=== PATIENT | male | born 1935 | race Hispanic/Latino ===

== ENCOUNTER 2019-12-13 19:48 | Emergency (ER) | payer MEDICARE ==
[~2019-12-13] VITALS: Ht 172.7 cm; Wt 83.0 kg
[2019-12-13] MEDS ORDERED: TRAMADOL HCL 50 MG TAB ONE (20:56)
[2019-12-13] MEDS ORDERED: TRAMADOL HCL 50 MG TAB PO ONE (21:00)
--- NOTE | 2019-12-13 22:15 | Diagnostic Imaging Report ---
EXAMINATION: CHEST 2 VIEWS INDICATION: Cough. Blood tinged sputum this morning COMPARISON: None. Correlation CT chest 02/05/2019. FINDINGS: TUBES and LINES: None. LUNGS: Patchy airspace disease in the right upper lobe medially, and bilateral lower lobes, concerning for multifocal pneumonia. PLEURA: No pleural effusion or pneumothorax. HEART AND MEDIASTINUM: The cardiomediastinal silhouette is unremarkable. There are atherosclerotic calcifications within the aorta. BONES AND SOFT TISSUES: No acute osseous lesion. Soft tissues are unremarkable. UPPER ABDOMEN: No free air under the diaphragm. IMPRESSION: 1. Patchy airspace disease in the right upper lobe medially, and bilateral lower lobes, concerning for multifocal pneumonia in the proper clinical setting. Recommend follow-up chest PA and lateral views after treatment to document resolution. 2. Bilateral pulmonary nodules present on prior CT examination are not well evaluated with this exam. Signed by: Dr. Vega Weinberg M.D. on 12/13/2019 10:12 PM
--- NOTE | 2019-12-13 22:17 | Diagnostic Imaging Report ---
Lumbar Spine Radiographs: 3 views HISTORY: Back pain with into left leg. COMPARISON: None available. DISCUSSION: There are five non-rib bearing lumbar vertebral bodies, however, there is partial sacralization of L5, with a right L5-S1 pseudoarthrosis. The alignment of the spine is within normal limits. No displaced fracture or compression deformity is identified. 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 Laminectomy changes are present at L4-L5 and L5-S1. Degenerative changes of the SI joints. Cholecystectomy clips. 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 Signed by: Dr. Vega Weinberg M.D. on 12/13/2019 10:14 PM
[2019-12-14 00:17] LABS: BASOPHILS % 0.5 % (0.0-1.0); EOSINOPHILS # (AUTO) 0.4 (0.0-0.4); EOSINOPHILS % 4.9 % (0.0-6.0); HEMATOCRIT 40.6 % (38.2-49.6); HEMOGLOBIN 13.5 g/dL (14.0-18.0); LYMPHOCYTES # (AUTO) 2.5 (1.0-3.2); MEAN CORPUSCULAR HEMOGLOBIN 34.7 pg (28-32); MEAN CORPUSCULAR HGB CONC 33.3 g/dL (31-35); MEAN CORPUSCULAR VOLUME 104.4 fL (81-99); MONOCYTES # (AUTO) 0.7 (0.2-0.8); MONOCYTES % 8.7 % (4.4-11.3); NEUTROPHILS # (AUTO) 4.7 (2.1-6.9); NEUTROPHILS % 55.7 % (38.7-80.0); PLATELET COUNT 223 x10e3/uL (140-360); RED BLOOD COUNT 3.89 x10e6/uL (4.3-5.7)
[2019-12-14] MEDS ORDERED: IPRATROPIUM BROMIDE 0.02% 2.5 ML NEB ONE (00:23)
[2019-12-14] MEDS ORDERED: ALBUTEROL SULF 0.083% NEB SOLN 3 ML NEB ONE (00:24)
[2019-12-14] MEDS ORDERED: ALBUTEROL SULF 0.5% NEB SOLN 20 ML BTL ONE (00:24)
[2019-12-14 00:42] LABS: ALBUMIN 3.6 g/dL (3.5-5.0); ALBUMIN/GLOBULIN RATIO 0.9 (0.8-2.0); ANION GAP 12.7 mmol/L (8-16); CALCIUM 9.6 mg/dL (8.4-10.2); CREATININE, SERUM 1.23 mg/dL (0.72-1.25); POTASSIUM 3.7 mmol/L (3.5-5.1)
--- NOTE | 2019-12-14 01:44 | Diagnostic Imaging Report ---
EXAM: CT Chest WITHOUT contrast 12/13/2019 11:14 PM INDICATION: Pain. Abnormal chest x-ray. Nodules on chest x-ray. COMPARISON: 02/05/2019. TECHNIQUE: Chest was scanned utilizing a multidetector helical scanner from the lung apex through the level of the adrenal glands without administration of IV contrast. Absence of intravenous contrast decreases sensitivity for detection of lymphadenopathy and vascular pathology. Coronal and sagittal reformations were obtained. Routine protocol was performed. IV CONTRAST: None RADIATION DOSE: Total DLP: 524.54 mGy*cm Estimated effective dose: (DLP x 0.014 x size factor) mSv COMPLICATIONS: None FINDINGS: LINES/ TUBES: None. LUNGS AND AIRWAYS: Peripheral spiculated lesions scattered throughout the both lungs, some which are new, and some which are stable since the prior examination. There is bilateral lower lobe scarring with mild central bronchiectasis. There is mucous plugging with finger in glove appearance particularly in the right lower lobe. Some nodules are stable small for instance, 1.3 cm nodule in the left upper lobe medially on image 40, previously 1.2 cm on image 37. 1.1 cm nodule in the lingula on image 71, previously 1.1 cm on image 69. 1.2 cm nodule in the posterior right lower lobe on image 72 previously 1.1 cm on image 75. PLEURA: The pleural spaces are clear. HEART AND MEDIASTINUM: The thyroid gland is normal. No mediastinal, hilar or axillary lymphadenopathy. The heart is normal in size.. There is no pericardial effusion. There are mild atherosclerotic calcifications in the aorta and coronary arteries. UPPER ABDOMEN: Limited non-contrast views of the upper abdomen redemonstrate a large left parapelvic cyst versus chronic hydronephrosis, not completely evaluated. 1.9 cm simple appearing cyst in the anterior upper pole of the right kidney is stable. Calcifications of the visualized abdominal aorta. The adrenal glands are normal. Cholecystectomy clips. BONES: There are degenerative changes in the thoracic spine. SOFT TISSUES: Unremarkable. IMPRESSION: 1. Bilateral irregular pulmonary nodules most of which are stable and however, some are new and may represent acute infectious/inflammatory etiology superimposed on chronic changes, which in association with bilateral lower lobe bronchial mucous plugging, may reflect ABPA in the proper clinical setting. Recommend follow-up with career law clerk, new finding, further evaluation with high-resolution CT chest. 2. Large left parapelvic cyst versus chronic hydronephrosis only partially visualized. Signed by: Dr. Vega Weinberg M.D. on 12/14/2019 1:41 AM
[2019-12-14 02:24] VITALS: BP 146/72
== END 2019-12-14 02:37 | disposition home or self-care (01) ==
LOC: ER 19:48
DX: M54.42 Lumbago with sciatica, left side (principal); R05 Cough; R91.8 Other nonspecific abnormal finding of lung field; I10 Essential (primary) hypertension; G89.29 Other chronic pain; Z86.718 Personal history of other venous thrombosis and embolism
CPT/HCPCS: 36415; 71046; 71250; 72100; 80053; 85025; 87040; 87071; 87205; 99284

== ENCOUNTER 2020-05-20 11:56 | Emergency (ER) | payer MEDICARE ==
[~2020-05-20] VITALS: Ht 172.7 cm; Wt 83.0 kg
--- NOTE | 2020-05-20 13:30 | Diagnostic Imaging Report ---
EXAMINATION: CHEST SINGLE (PORTABLE) INDICATION: Cough COMPARISON: Chest radiograph 12/13/2019, chest CT 12/13/2019 FINDINGS: LINES/TUBES:None LUNGS:The lungs are well-inflated. No focal consolidation or pulmonary edema. Scattered areas of small nodularity correspond with pulmonary nodules and areas of mucus plugging seen on the prior CT of 12/13/2019. PLEURA:No pleural effusion or pneumothorax. MEDIASTINUM:The cardiomediastinal silhouette appears unchanged in size and shape. BONES/SOFT TISSUES:No acute osseous injury. ABDOMEN:No free air under the diaphragm. IMPRESSION: No focal pneumonia or pulmonary edema. Scattered nodules and mucus plugging better appreciated on prior CT of 12/13/2019. Signed by: Jackie Gutierrez MD on 05/20/2020 1:26 PM
--- NOTE | 2020-05-20 13:30 | Diagnostic Imaging Report ---
EXAMINATION: FOOT LEFT COMPLETE INDICATION: Left foot pain COMPARISON: None FINDINGS: AP, lateral and oblique images of the left foot demonstrate no acute fracture or dislocation. Alignment is anatomic. The soft tissues appear unremarkable. IMPRESSION: No acute osseous injury. Signed by: Jackie Gutierrez MD on 05/20/2020 1:27 PM
--- NOTE | 2020-05-20 13:52 | Emergency Department Note ---
History of Present Illnes History of Present Illness Chief Complaint: Extremity Trauma/Pain History of Present Illness This is a 85 year old male states he fell 1 week ago (SLIPPED ON COFFEE THAT HE SPILLED) and landed on left side of body c/o pain to left leg, left arm/shoulder, and head denies being on blood thinners, denies loc, denies dizziness, states his left foot is swollen. Also c/o mild cough with occas blood-tinged sputum Historian: Patient Arrival Mode: Car [employer] Grade Three Required: No Onset (how long ago): week(s) (1) Location: LEFT SIDE OF BODY Quality: PAIN Radiation: Reports non-radiation Severity: mild Onset quality: gradual Timing of current episode: constant Chronicity: new Context: Denies recent illness Relieving factors: none Exacerbating factors: none Associated symptoms: Reports denies other symptoms Treatments prior to arrival: none Past Medical/Family History Physician Review I have reviewed the patient's past medical and family history. Any updates have been documented here. Past Medical History Recent Fever: No Clinical Suspicion of Infectio: No New/Unexplained Change in Ment: No Past Medical History: Hypertension, DVT/PE, Chronic Back Pain Other Medical History: BPH Past Surgical History: Appendectomy, Back Surgery Social History Smoking Cessation: Never Smoker Counseling Performed: No Alcohol Use: None Any Illegal Drug Use: No Physically hurt or threatened: No Other Last Tetanus: OOD Any Pre-Existing Lines (PICC,: No Review of Systems Review of Systems Constitutional: Reports no symptoms EENTM: Reports no symptoms Cardiovascular: Reports no symptoms Respiratory: Reports no symptoms Gastrointestinal: Reports no symptoms Genitourinary: Reports no symptoms Musculoskeletal: Reports as per HPI Integumentary: Reports no symptoms Neurological: Reports no symptoms Psychological: Reports no symptoms Endocrine: Reports no symptoms Hematological/Lymphatic: Reports no symptoms Physical Exam Related Data Allergies: Coded Allergies: No Known Allergies (Unverified , 02/05/19) Triage Vital Signs Vital Signs Date Time Temp Pulse Resp B/P (MAP) Pulse Ox O2 Delivery O2 Flow Rate FiO2 05/20/20 12:19 98.5 96 18 153/85 100 Room Air Vital signs reviewed: Yes Physical Exam CONSTITUTIONAL Constitutional: Present well-developed, Present well-nourished HENT HENT: Present normocephalic, Present atraumatic, Present oropharynx clear/moist, Present nose normal HENT L/R: Present left ext ear normal, Present right ext ear normal EYES Eyes: Reports PERRL, Reports conjunctivae normal NECK Neck: Present ROM normal PULMONARY Pulmonary: Present effort normal, Present breath sounds normal CARDIOVASCULAR Cardiovascular: Present regular rhythm, Present heart sounds normal, Present capillary refill normal, Present normal rate GASTROINTESTINAL Abdominal: Present soft, Present nontender, Present bowel sounds normal GENITOURINARY Genitourinary: Present exam deferred SKIN Skin: Present warm, Present dry MUSCULOSKELETAL Musculoskeletal: Present ROM normal, Present other (MILD TENDERNESS LEFT POSTERIOR HEEL/CALCANEUS) NEUROLOGICAL Neurological: Present alert, Present oriented x 3, Present no gross motor or sensory deficits PSYCHOLOGICAL Psychological: Present mood/affect normal, Present judgement normal Results Imaging Imaging results reviewed: Yes Assessment & Plan Medical Decision Making MDM CHECK FOOT XRAY, CXR Reassessment Reassessment DC HOME, TYLENOL FOR PAIN, ZPACK, F/U PCP Assessment & Plan Final Impression: (1) Fall (2) Contusion (3) Bronchitis Depart Disposition: HOME, SELF-CARE Last Vital Signs Date Time Temp Pulse Resp B/P (MAP) Pulse Ox O2 Delivery O2 Flow Rate FiO2 05/20/20 12:19 98.5 96 18 153/85 100 Room Air OLMAN PAUL MD May 20, 2020 13:52
== END 2020-05-20 14:00 | disposition home or self-care (01) ==
LOC: ER 12:16
DX: S90.32XA Contusion of left foot, initial encounter (principal); M25.512 Pain in left shoulder; J40 Bronchitis, not specified as acute or chronic; W01.0XXA Fall on same level from slipping, tripping and stumbling without subsequent striking against object, initial encounter; Y93.01 Activity, walking, marching and hiking; Y92.008 Other place in unspecified non-institutional (private) residence as the place of occurrence of the external cause; I10 Essential (primary) hypertension; M54.9 Dorsalgia, unspecified; G89.29 Other chronic pain; Z86.718 Personal history of other venous thrombosis and embolism
CPT/HCPCS: 71045; 93005; 99283

== ENCOUNTER 2020-07-03 19:35 | Inpatient (IN) | payer MEDICARE ==
[~2020-07-03] VITALS: Ht 172.7 cm; Wt 83.0 kg
[2020-07-03 20:20] LABS: BASOPHILS % 0.4 % (0.0-1.0); EOSINOPHILS # (AUTO) 0.4 (0.0-0.4); EOSINOPHILS % 5.6 % (0.0-6.0); HEMATOCRIT 33.3 % (38.2-49.6); HEMOGLOBIN 11.1 g/dL (14.0-18.0); LYMPHOCYTES # (AUTO) 1.6 (1.0-3.2); LYMPHOCYTES % 22.7 % (18.0-39.1); MEAN CORPUSCULAR HEMOGLOBIN 33.9 pg (28-32); MEAN CORPUSCULAR HGB CONC 33.3 g/dL (31-35); MEAN CORPUSCULAR VOLUME 101.8 fL (81-99); MONOCYTES # (AUTO) 0.7 (0.2-0.8); MONOCYTES % 10.2 % (4.4-11.3); NEUTROPHILS # (AUTO) 4.3 (2.1-6.9); NEUTROPHILS % 60.8 % (38.7-80.0); PLATELET COUNT 206 x10e3/uL (140-360); RED BLOOD COUNT 3.27 x10e6/uL (4.3-5.7); RED CELL DISTRIBUTION WIDTH 13.8 % (11.7-14.4)
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
[2020-07-03 20:37] LABS: ALBUMIN 2.9 g/dL (3.5-5.0); ALBUMIN/GLOBULIN RATIO 0.9 (0.8-2.0); ANION GAP 17.9 mmol/L (8-16); CALCIUM 8.7 mg/dL (8.4-10.2); CREATININE, SERUM 9.28 mg/dL (0.72-1.25); POTASSIUM 5.9 mmol/L (3.5-5.1)
[2020-07-03] MEDS ORDERED: SODIUM BICARBONATE 8.4% INJ 50 ML SYR IV STA (20:52)
[2020-07-03] MEDS ORDERED: DEXTROSE 50% SYRINGE 50 ML IV STA (20:52)
[2020-07-03] MEDS ORDERED: SOD POLYSTYRENE SULFONATE SUSP 15 GM/60 ML BTL PO ONE (21:00)
[2020-07-03] MEDS ORDERED: CALCIUM GLUCONATE 10% INJ 13.95 MEQ in SODIUM CHLORIDE 0.9% 100 ML 100 ML IV ONE (21:00)
[2020-07-03] MEDS ORDERED: INSULIN REGULAR, HUMAN 100 UNIT/1 ML 3ML VIAL IV ONE (21:00)
[2020-07-03] MEDS ORDERED: CALCIUM GLUCONATE 10% INJ 0.465 MEQ/ML VIAL ONE (21:29)
[2020-07-03 21:31] LABS: BILIRUBIN,URINE NEGATIVE (NEGATIVE); CLARITY,URINE CLEAR (CLEAR); COLOR,URINE YELLOW (YELLOW); KETONES,URINE NEGATIVE (NEGATIVE); LEUKOCYTE ESTERASE ,URINE NEGATIVE (NEGATIVE); NITRITE,URINE NEGATIVE (NEGATIVE); PROTEIN,URINE DIPSTICK NEGATIVE (NEGATIVE); URINE UROBILINOGEN 0.2 mg/dL (0.2 - 1)
--- NOTE | 2020-07-03 21:41 | Diagnostic Imaging Report ---
EXAMINATION: Head CT without contrast. HISTORY:Status post fall. COMPARISON:None. TECHNIQUE: Multidetector axial images were obtained from the foramen magnum to the vertex without contrast. The images were reconstructed using brain and bone algorithms. Thin section brain images were reformatted into coronal and sagittal planes. Dose modulation, iterative reconstruction, and/or weight based adjustment of the mA/kV was utilized to reduce the radiation dose to as low as reasonably achievable. Intravenous contrast: None IMAGE QUALITY: Suboptimal evaluation particularly of skull base and posterior fossa structures due to streak artifacts. FINDINGS: Skull/scalp: No lytic or blastic. lesions. No surgical changes. Parenchyma: Nonspecific few, scattered supratentorial white matter hypodensity are likely related to small vessel ischemic changes. No acute hemorrhage, mass or acute major vascular territorial infarct. Arteries: No density suggestive of thrombosis. Dural sinuses: No abnormal density suggestive of thrombosis. Ventricles: Compensated dilatation due to volume loss. No hydrocephalus. Extra-axial spaces: No abnormal density. Brain volume: Normal for age. Craniocervical junction: No mass, Chiari malformation, or basilar invagination. Sella: No mass. Paranasal/mastoid sinuses: Mild mucosal thickening in left ethmoid and right sphenoid sinus. IMPRESSION: No acute intracranial abnormality. Minimal supratentorial white matter microvascular ischemic changes. Signed by: Dr. Radha Enciso M.D. on 07/03/2020 9:38 PM
[2020-07-03 21:42] LABS: BACTERIA,URINE FEW /HPF; RBC,URINE 21-50 /HPF (0-5)
--- NOTE | 2020-07-03 21:48 | Diagnostic Imaging Report ---
History: Status post fall. Comparison studies: None Technique: Axial images were obtained through the cervical region.. Coronal and sagittal images reconstructed from the axial data. Dose modulation, iterative reconstruction, and/or weight based adjustment of the mA/kV was utilized to reduce the radiation dose to as low as reasonably achievable. Intravenous contrast: None Findings: Fractures: None. Soft tissue injuries: None. Atlantoaxial articulation: Intact. Alignment: Loss of normal cervical lordosis is either positional or due to muscle spasm. No scoliosis. 1.5 mm grade 1 anterolisthesis at C5-C6. Cervicomedullary junction: No abnormalities. The foramen magnum is patent. Soft tissues: No abnormalities. Vertebrae: No fractures, infection or neoplasm. Degenerative changes: Advanced degenerative changes in the anterior atlantodental joint. C2-C3: Mild left foraminal stenosis due to facet arthrosis. C3-C4: Moderate right and mild left foraminal stenosis due to facet and uncovertebral arthrosis. C4-C5: Severe bilateral foraminal stenosis due to facet and uncovertebral arthrosis. C5-C6: Moderate bilateral foraminal stenosis due to facet and uncovertebral arthrosis. C6-C7: Moderate degenerative disc disease. Posterior disc osteophyte complex without significant canal stenosis. Mild right and moderate left foraminal stenosis due to facet and uncovertebral arthrosis. Incidental finding: Nonspecific multiple subcentimeter nodular airspace opacities in bilateral lung atelectasis. IMPRESSION: 1. No acute cervical spine fracture or dislocation. Loss of normal cervical lordosis is either positional or due to muscle spasm. 2. Ligament, spinal cord and or vascular abnormalities cannot be excluded on the basis of this examination. 3. Multilevel cervical spondylosis as detailed above. Signed by: Dr. Radha Enciso M.D. on 07/03/2020 9:45 PM
--- NOTE | 2020-07-03 22:08 | Diagnostic Imaging Report ---
EXAMINATION: CHEST SINGLE (PORTABLE) INDICATION: s/p fall yesterday COMPARISON: Radiograph dated 05/20/2020. FINDINGS: TUBES and LINES: None. LUNGS: Normal lung volumes. No consolidations. 2.2 cm nodule projects over the mid left lung. PLEURA: No pleural effusion or pneumothorax. HEART AND MEDIASTINUM: The cardiomediastinal silhouette is unremarkable. BONES AND SOFT TISSUES: No acute osseous displaced rib fractures. Soft tissues are unremarkable. UPPER ABDOMEN: No free air under the diaphragm. IMPRESSION: 1. No acute thoracic radiographic abnormality. 2. Unchanged 2.2 cm pulmonary nodule. Additional small nodules are not radiographically apparent. Please see CT report from today. Signed by: Jose Madsen MD on 07/03/2020 10:04 PM
--- OUTSIDE RECORDS SUMMARY | 2020-07-03 22:12 | XMS REPORT | Clinical Summary ---
Author Author [facility] Organization [facility] Address Unknown Phone Unavailable Care Team Providers [facility] Director Name Role Phone Richard Isaac MD PCP Allergies No Known Allergies Medications End Date Status Medication Sig Dispensed Refills Start Date Active kxvivopymiia-pfjngfbm-mbe Take 1 tablet 90 tablet 3 ein tablet by mouth 7 daily. Active clotrimazole-betamethason Apply 15 g 3 e (LOTRISONE) 1-0.05 % topically 7 creamIndications: Tinea twice daily corporis to rash x 7-10 days Active fluticasone (FLONASE) 50 2 sprays (100 15.8 mL 0 mcg/actuation nasal mcg total) by 7 sprayIndications: Chronic Each Nare seasonal allergic route daily. rhinitis due to other allergen Active tamsulosin (FLOMAX) 0.4 Take 1 90 capsule 1 mg capsule,extended capsule (0.4 7 release 24hr mg total) by mouth nightly. For prostate Active nabumetone (RELAFEN) 500 Take 1 tablet 60 tablet 1 MG tabletIndications: (500 mg 7 Chronic left shoulder total) by pain mouth 2 (two) times a day as needed for moderate pain. Active promethazine-DM TAKE 1 240 mL 0 (PROMETHAZINE-DM) 6.25-15 TEASPOONFUL 7 mg/5 mL syrup BY MOUTH EVERY 6 HOURS NEEDED FOR COUGH Active Problems Problem Noted Date Elevated PSA, greater than or equal to 20 ng/ml 10/06 Vitamin D deficiency 10/15/2017 Vitamin B12 deficiency 10/15/2017 Benign prostatic hyperplasia with incomplete bladder emptying 10/12/2017 Tinea corporis 10/12/2017 Impaired hearing 10/12/2017 Allergic rhinitis due to allergen 10/12/2017 Abnormal blood chemistry 10/12/2017 Rash 10/12/2017 BMI 28.0-28.9,adult 10/12/2017 Chronic left shoulder pain 10/12/2017 Social History Date Tobacco Use Types Packs/Day Years Used Never Smoker Smokeless Tobacco: Never Used Drinks/Week oz/Week Comments Alcohol Use No Sex Assigned at Date Recorded Not on file Industry Job Start Date Occupation Not on file Not on file Not on file Travel End Travel History Travel Start No recent travel history available. Last Filed Vital Signs Not on file Plan of Treatment Health Maintenance Due Date Last Done Comments SHINGLES VACCINES (#1) 1983 65+ PNEUMOCOCCAL VACCINE 1998 (1 of 2 - PCV13) INFLUENZA VACCINE 08/06/2020 Results Not on fileafter 07/03/2019 Insurance Type Payer Benefit Subscriber ID Effective Phone Address Plan / Dates Group HMO [employer] xxxxxxxxx 2017- MARITA Present Advance Directives For more information, please contact: [phone] Patient Trouble Clerk Explanation Type Date Recorded Advance Directives, Living Will and Medical Power of Options Trader
--- OUTSIDE RECORDS SUMMARY | 2020-07-03 22:12 | XMS REPORT | Continuity of Care Document ---
Author Author [facility] t Organization [facility] Address [address] [place] [address] Phone Unavailable Care Team Providers Care Superintendent Division Name Role Phone NONSTAFF PCP Unavailable Fina ESPINOZA Attphys Unavailable Yusuf PAUL Attphys Unavailable Nellie FREED Attphys Unavailable Payers Payer Name Policy Type Policy Number Effective Date Expiration Date [facility] [id number] 2019 00:00:00 [facility] [employer] Medicare Complete [id number] 2018 00:00:00 [facility] Problems Condition Name Condition Details Condition Category Status Onset Date Resolution Date Last Treatment Date Treating Clinician Comments Source Elevated PSA, greater than or equal to 20 ng/ml Elevat ed PSA, greater than or equal to 20 ng/ml Disease Active 2017-10-15 00:00:00 Eyad Calhoun Vitamin D deficiency Vitamin D deficiency Disease Active 00:00:00 Eyad Calhoun Vitamin B12 deficiency Vitamin B12 deficiency Disease Active 2017-10-15 00:00:[address] Benign prostatic hyperplasia with incomplete bladder e mptying Benign prostatic hyperplasia with incomplete bladder emptying Disease Active 201 05-17-07 00:00:00 [facility] Tinea corporis Tinea corporis Disease Active 2017-10-12 00:00:00 Eyad Calhoun Impaired hearing Impaired hearing Disease Active 2017-10-12 00:00:00 Eyad Calhoun Allergic rhinitis due to allergen Allergic rhinitis due to aller gen Disease Active 2017-10-12 00:00:00 Jenniffer clifford Faith Abnormal blood chemistry Abnormal blood chemistry Disease Acti ve 2017-10-12 00:00:[address] Rash Rash Disease Active 2017-10-12 00:00:00 Eyad Calhoun BMI 28.0-28.9,adult BMI 28.0-28.9,adult Disease Active 2017-10-12 00:00 :00 Eyad Calhoun Chronic left shoulder pain Chronic left shoulder pain Disease Active 2017-10-12 00:00:[address] Fall Problem Active [facility] Contusion Problem Active [facility] Bronchitis Problem Active [facility] Allergies, Adverse Reactions, Alerts Allergy Name Allergy Type Status Severity Reaction(s) Onset Date Inacti ve Date Treating Clinician Comments Source No Known Allergies DA Active U 2012-04-10 00:00:00 [facility] Social History Social Habit Start Date Stop Date Quantity Comments Source Sex Assigned At [facility] Faith Alcohol intake 2017-10-12 00:00:00 2017-10-12 00:00:00 Current non-drinker of alcohol (finding) Eyad Calhoun Smoking Status Start Date Stop Date Source Never smoker Eyad terrazas Medications Ordered Medication Name Filled Medication Name Start Date Stop Da te Current Medication? Ordering Clinician Indication Dosage Frequency Signature (SIG) Comments Components Source promethazine-DM (PROMETHAZINE-DM) 6.25-15 mg/5 mL syrup 2017-10-27 00:00:00 Yes TAKE 1 TEASPOONFUL BY MOUTH EVERY 6 HOUR S NEEDED FOR COUGH Eyad Calhoun naxzrqtmaocs-ebdzdoyp-ihqluj tablet 2017-10-12 00:00:00 Yes 1{tbl} QD Take 1 tablet by mouth daily. Eyad davis clotrimazole-betamethasone (LOTRISONE) 1-0.05 % cream 2017-10-12 00:00:00 Yes Tinea corporis Apply topically twice daily to ra sh x 7-10 days Eyad Calhoun fluticasone (FLONASE) 50 mcg/actuation nasal spray 2017-10 00:00:00 Yes Chronic seasonal allergic rhinitis due to other allergen 100ug QD 2 sprays (100 mcg total) by Each Nare route daily. Val Calhoun tamsulosin (FLOMAX) 0.4 mg capsule,extended release 24hr 2017-10-12 00:00:00 Yes .4mg QD Take 1 capsule (0.4 mg total) by mouth nightly. For prostate Eyad Calhoun nabumetone (RELAFEN) 500 MG tablet 2017-10-12 00:00:00 Yes Chronic left shoulder pain 500mg Q.5D Take 1 tablet (500 m g total) by mouth 2 (two) times a day as needed for moderate pain. Eyad Calhoun Vital Signs Vital Name Observation Time Observation Value Comments Source Weight 2020-05-20 12:19:00 183 [lb_av] [facility] BMI (Body Mass Index) 2020-05-20 12:19:00 27.8 kg/m2 [facility] Body Temperature 2019-12-14 01:24:00 98.1 [degF] [facility] Procedures Procedure Date / Time Performed Performing Clinician [facility] e X-ray of chest, two views 2019-12-13 00:00:00 LYNDSAY ESPINOZA [facility] Computed tomography of chest without contrast 2019-12-13 00: 00:00 LAURYN ESPINOZA [facility] Plan of Care Planned Activity Planned Date Details Comments Source Future Scheduled Test 2020-08-06 00:00:00 INFLUENZA VACCINE [code = INFLUENZA VACCINE] [facility] Future Scheduled Test 1998 00:00:00 65+ PNEUMOCOCCAL V ACCINE (1 of 2 - PCV13) [code = 65+ PNEUMOCOCCAL VACCINE (1 of 2 - PCV13)] [facility] Future Scheduled Test 1983 00:00:00 SHINGLES VACCINES (#1) [code = SHINGLES VACCINES (#1)] Eyad Calhoun Instructions Fall Prevention [facility] Encounters Start Date/Time End Date[facility] En[facility] ID Source 2020-05-20 12:16:00 2020-05-20 14:00:00 Departed Emergency Room 1 OLMAN PAUL [facility] [id number] [facility]ly [facility] 2019-12-13 18:48:00 2019-12-14 01:37:00 Departed Emergency Room 1 LAURYN ESPINOZA [facility] [id number] I [facility] 2019-02-05 18:05:00 2019-02-05 22:33:00 Departed Emergency Room [address] [facility] [id number] [facility] Results Test Description Test Time Test Comments Results Result Comments Source CHEST SINGLE (PORTABLE) 2020-07-03 21:59:00 [facility] [address] [place] [address] Patient Name: ONEIL ACHARYA MR #: [id number] : 1935 Age/Sex: 85/M Req #: [id number] Adm Physician: Ordered by: LAURYN ESPINOZA MD Report #: [id number] Location: ER Room/Bed: Procedure: [id number] DX/CHEST SINGLE (PORTABLE) Exam Date: 07/03/20 Exam Time: 2100 REPORT STATUS: Signed EXAMINATION: CHEST SINGLE (PORTABLE) INDICATION: s/p fall yesterday COMPARISON: Radiograph dated 05/20/2020. FINDINGS: TUBES and LINES: None. LUNGS: Normal lung volumes. No consolidations. 2.2 cm nodule projects over the mid left lung. PLEURA: No pleural effusion or pneumothorax. HEART AND MEDIASTINUM: The cardiomediastinal silhouette is unremarkable. BONES AND SOFT TISSUES: No acute osseous displaced rib fractures. Soft tissues are unremarkable. UPPER ABDOMEN: No free air under the diaphragm. IMPRESSION: 1. No acute thoracic radiographic abnormality. 2. Unc hanged 2.2 cm pulmonary nodule. Additional small nodules are not radiographically apparent. Please see CT report from today. Signed by: Chanell Madsen MD on 07/03/2020 10:04 PM Dictated By: CHANELL MADSEN MD 03 Transcribed By: RHEA on 07/03/202203 COPY TO: LAURYN ESPINOZA MD CT CERVICAL SPINE WO 2020-07-03 21:38:00 [place] [address] Patient Name: ONEIL ACHARYA MR #: [id number] : 1935 Age/Sex: 85/M Req #: [id number] Adm Physician: Ordered by: LAURYN ESPINOZA MD Report #: [id number] Location: ER Room/Bed: Procedure: [id number] CT/CT CERVICAL SPINE WO Exam Date: 07/03/20 Exam Time: 2099 REPORT STATUS: Signed History: Status post fall. Comparison studies: None Technique: Axial images were obtained through the cervical region.. Coronal and sagittal images reconstructed from the axial data. Dose modulation, iterative reconstruction, and/or weight based adjustment of the mA/kV was utilized to reduce the radiation dose to as low as reasonably achievable. Intravenous contrast: None Findings: Fractures: None. Soft tissue injuries: None. Atlantoaxial articulation: Intact. Alignment: Loss of normal cervical lordosis is either positional or due to muscle spasm. No scoliosis. 1.5 mm grade 1 anterolisthesis at C5-C6. Cervicomedullary junction: No abnormalities. The foramen magnum is patent. Soft tissues: No abnormalities. Vertebrae: No fractures, infection or neoplasm. Degenerative changes: Advanced degenerative changes in the anterior atlantodental joint. C2-C3: Mild left foraminal stenosis due to facet arthrosis. C3-C4: Moderate right and mild left foraminal stenosis due to facet and uncovertebral arthrosis. C4-C5: Severe bilateral foraminal stenosis due to facet and uncovertebral arthrosis. C5-C6: Moderate bilateral foraminal stenosis due to facet and uncovertebral arthrosis. C6-C7: Moderate degenerative disc disease. Posterior disc osteophyte complex without significant canal stenosis. Mild right and moderate left foraminal stenosis due to facet and uncovertebral arthrosis. Incidental finding: Nonspecific multiple subcentimeter nodular airspace opacities in bilateral lung atelectasis. IMPRESSION: 1. No acute cervical spine fracture or dislocation. Loss of normal cervical lordosis is either positional or due to muscle spasm. 2. Ligament, spinal cord and or vascular abnormalities cannot be excluded on the basis of this examination. 3. Multilevel cervical spondylosis as detailed above. Signed by: Dr. Radha Enciso M.D. on 07/03/2020 9:45 PM Dictated By: RADHA ENCISO MD 44 Transcribed By: RHEA on 07/03/202144 COPY TO: LAURYN ESPINOZA MD CT BRAIN WO 2020-07-03 21:34:00 [place] [address] Patient Name: ONEIL ACHARYA MR #: [id number] : 1935 Age/Sex: 85/M Req #: [id number] Adm Physician: Ordered by: LAURYN ESPINOZA MD Report #: [id number] Location: ER Room/Bed: Procedure: [id number] CT/CT BRAIN WO Exam Date: 07/03/20 Exam Time: 2100 REPORT STATUS: Signed EXAMINATION: Head CT without contrast. HISTORY:Status post fall. COMPARISON:None. TECHNIQUE: Multidetector axial images were obtained from the foramen magnum to the vertex without contrast. The images were reconstructed using brain and bone algorithms. Thin section brain images were reformatted into coronal and sagittal planes. Dose modulation, iterative reconstruction, and/or weight based adjustment of the mA/kV was utilized to reduce the radiation dose to as low as reasonably achievable. Intravenous contrast: None IMAGE QUALITY: Suboptimal evaluation particularly of skull base and posterior fossa structures due to st reak artifacts. FINDINGS: Skull/scalp: No lytic or blastic. lesions. No surgical changes. Parenchyma: Nonspecific few, scattered supratentorial white matter hypodensity are likely related to small vessel ischemic changes. No acute hemorrhage, mass or acute major vascular territorial infarct. Arteries: No density suggestive of thrombosis. Dural sinuses: No abnormal density suggestive of thrombosis. Ventricles: Compensated dilatation due to volume loss. No hydrocephalus. Extra-axial spaces: No abnormal density. Brain volume: Normal for age. Craniocervical junction: No mass, Chiari malformation, or basilar invagination. Sella: No mass. Paranasal/mastoid sinuses: Mild mucosal thickening in left ethmoid and right sphenoid sinus. IMPRESSION: No acute intracranial abnormality. Minimal supratentorial white matter microvascular ischemic changes. Signed by: Dr. Radha Enciso M.D. on 07/03/2020 9:38 PM Dictated By: RADHA ENCISO MD 37 Transcribed By: RHEA on 07/03/202137 COPY TO: LAURYN ESPINOZA MD FOOT LEFT COMPLETE 2020-05-20 13:26:00 [place] [address] Patient Name: ONEIL ACHARYA MR #: [id number] : 1935 Age/Sex: 85/M Req #: [id number] Adm Physician: Ordered by: OLMAN PAUL MD Report #: [id number] Location: ER Room/Bed: Procedure: DX/FOOT LEFT COMPLETE Exam Date: 05/20/20 Exam Time: 1255 REPORT STATUS: Signed EXAMINATION: FOOT LEFT COMPLETE INDICATION: Left foot pain COMPARISON: None FINDINGS: AP, lateral and oblique images of the left foot demonstrate no acute fracture or dislocation. Alignment is anatomic. The soft tissues appear unremarkable. IMPRESSION: No acute osseous injury. Signed by: Maicol Brown MD on 05/20/2020 1:27 PM Dictated By: MAICOL BROWN MD 26 Transcribed By: RHEA on 05/20/201326 COPY TO: OLMAN PAUL MD CHEST SINGLE (PORTABLE) 2020-05-20 13:23:00 [place] [address] Patient Name: ONEIL ACHARYA MR #: [id number] : 1935 Age/Sex: 85/M Req #: [id number] Adm Physician: Ordered by: OLMAN PAUL MD Report #: [id number] Location: ER Room/Bed: Procedure: [id number] DX/CHEST SINGLE (PORTABLE) Exam Date: 05/20/20 Exam Time: 1255 REPORT STATUS: Signed EXAMINATION: CHEST SINGLE (PORTABLE) INDICATION: Cough COMPARISON: Chest radiograph 12/13/2019, chest CT 12/13/2019 FINDINGS: LINES/TUBES:None LUNGS:The lungs are well-inflated. No focal consolidation or pulmonary edema. Scattered areas of small nodularity correspond with pulmonary nodules and areas of mucus plugging seen on the prior CT of 12/13/2019. PLEURA:No pleural effusion or pneumothorax. MEDIASTINUM:The cardiomediastinal silhouette appears unchanged in size and shape. BONES/SOFT TISSUES:No acute osseous injury. ABDOMEN:No free air under the diaphragm. IMPRESSION: No focal pneumonia or pulmonary edema. Scattered nodules and mucus plugging better appreciated on prior CT of 12/13/2019. Signed by: Maicol Brown MD on 05/20/2020 1:26 PM Dictated By: MAICOL BROWN MD 1326 Transcribed By: RHEA on 05/20/20 1326 COPY TO: OLMAN PAUL MD CT CHEST WO 2019-12-14 01:26:00 [place] [address] Patient Name: ONEIL ACHARYA MR #: [id number] : 1935 Age/Sex: 84/M Req #: [id number] Adm Physician: Ordered by: LAURYN ESPINOZA MD Report #: [id number] Location: ER Room/Bed: Procedure: [id number] CT/CT CHEST WO Exam Date: 12/13/19 Exam Time: 2342 REPORT STATUS: Signed EXAM: CT Chest WITHOUT contrast 12/13/2019 11:14 PM INDICATION: Pain. Abnormal chest x-ray. Nodules on chest x-ray. COMPARISON: 02/05/2019. TECHNIQUE: Chest was scanned utilizing a multidetector helical scanner from the lung apex through the level of the adrenal glands without administration of IV contrast. Absence of intravenous contrast decreases sensitivity for detection of lymphadenopathy and vascular pathology. Coronal and sagittal reformations were obtained. Routine protocol was performed. IV CONTRAST: None RADIATION DOSE: Total DLP: 524.54 mGy*cm Estimated effective dose: (DLP x 0.014 x size factor) mSv COMPLICATIONS: None FINDINGS: LINES/ TUBES: None. LUNGS AND AIRWAYS: Peripheral spiculated lesions scattered throughout the both lungs, some which are new, and some which are stable since the prior examination. There is bilateral lower lobe scarring with mild central bronchiectasis. There is mucous plugging with finger in glove appearance particularly in the right lower lobe. Some nodules are stable small for instance, 1.3 cm nodule in the left upper lobe medially on image 40, previously 1.2 cm on image 37. 1.1 cm nodule in the lingula on image 71, previously 1.1 cm on image 69. 1.2 cm nodule in the posterior right lower lobe on image 72 previously 1.1 cm on image 75. PLEURA: The pleural spaces are clear. HEART AND MEDIASTINUM: The thyroid gland is normal. No mediastinal, hilar or axillary lymphadenopathy. The heart is normal in size.. There is no pericardial effusion. There are mild atherosclerotic calcifications in the aorta and coronary arteries. UPPER ABDOMEN: Limited non-contrast views of the upper abdomen redemonstrate a large left parapelvic cyst versus chronic hydronephrosis, not completely evaluated. 1.9 cm simple appearing cyst in the anterior upper pole of the right kidney is stable. Calcifications of the visualized abdominal aorta. The adrenal glands are normal. Cholecystectomy clips. BONES: There are degenerative changes in the thoracic spine. SOFT TISSUES: Unremarkable. IMPRESSION: 1. Bilateral irregular pulmonary nodules most of which are stable and however, some are new and may represent acute infectious/inflammatory etiology superimposed on chronic changes, which in association with bilateral lower lobe bronchial mucous plugging, may reflect ABPA in the proper clinical setting. Recommend follow-up with surface grinder, new finding, further evaluation with high-resolution CT chest. 2. Large left parapelvic cyst versus chronic hydronephrosis only partially visualized. Signed by: Dr. Vega Butler M.D. on 12/14/2019 1:41 AM Dictated By: ANIL BUTLER MD, MD 0 Transcribed By: RHEA on 12/14/19140 COPY TO: LAURYN ESPINOZA MD Sodium Level 2019-12-14 00:50:00 Test Item Sodium Level (test code = 2951-2) 138 136-145 [facility] Khumr3886-11-46 00:50:00* Test Item Value Reference Range Interpretation Comments Potassium Level (test code = 2823-3) 3.7 3.5-5.1 [facility] HospitalChloride Ogpfj4758-20-73 00:50:00* Test Item Value Reference Range Interpretation Comments Chloride Level (test code = 2075-0) 106 98-107 [facility] HospitalCarbon Dioxide Ggvqw9407-48-19 00:50:00* Test Item Value Reference Range Interpretation Comments Carbon Dioxide Level (test code = 2028-9) 23 22-29 [facility] HospitalAnion Amv2075-58-81 00:50:00* Test Item Value Reference Range Interpretation Comments Anion Gap (test code = 24463-6) 12.7 8-16 [facility] HospitalBlood Urea Vhcqwtdy2639-91-03 00:50:00* Test Item Value Reference Range Interpretation Comments Blood Urea Nitrogen (test code = 3094-0) 21 7-26 [facility] HospitalCreatinine2020-02-08 00:50:00* Test Item Value Reference Range Interpretation Comments Creatinine (test code = 2160-0) 1.23 0.72-1.25 [facility] HospitalBUN/Creatinine Kpqrn9020-31-92 00:50:00* Test Item Value Reference Range Interpretation Comments BUN/Creatinine Ratio (test code = 3097-3) 17 6-25 [facility] HospitalEstimat Glomerular Filtration Rate 2019-12-14 00:50:00* Test Item Value Reference Range Interpretation Comments Estimat Glomerular Filtration Rate (test code = 267067596) 56 >60 L Ranges were taken from the National Kidney Disease Education Program and the [facility]ney Foundation literature.Reference ranges:60 or greater: Jmfekh11-43 ( for 3 consecutive months): Chronic kidney disease 15 or less: Kidney failureHarris Health System Ben Taub HospitalGlucose Nyjrk2083-05-47 00:50:00* Test Item Value Reference Range Interpretation Comments Glucose Level (test code = CKR9191) 94 74-118 [facility] HospitalCalcium Tmcos4843-42-96 00:50:00* Test Item Value Reference Range Interpretation Comments Calcium Level (test code = 01445-5) 9.6 8.4-10.2 [facility] HospitalTotal Eykgfxklp5816-69-20 00:50:00* Test Item Value Reference Range Interpretation Comments Total Bilirubin (test code = 1975-2) 0.3 0.2-1.2 [facility] HospitalAspartate Amino Transf (AST/SGOT) 2019-12-14 00:50:00* Test Item Value Reference Range Interpretation Comments Aspartate Amino Transf (AST/SGOT) (test code = Aspartate Amino Transf (AST/SGOT)) 21 5-34 [facility] HospitalAlanine Aminotransferase (ALT/SGPT) 2019-12-14 00:50:00* Test Item Value Reference Range Interpretation Comments Alanine Aminotransferase (ALT/SGPT) (test code = 1742-6) 7 0-55 [facility] HospitalTotal Mitexcy1451-01-73 00:50:00* Test Item Value Reference Range Interpretation Comments Total Protein (test code = 2885-2) 7.7 6.5-8.1 [facility] HospitalAlbumin2020-02-08 00:50:00* Test Item Value Reference Range Interpretation Comments Albumin (test code = 1751-7) 3.6 3.5-5.0 [facility] HospitalGlobulin2020-02-08 00:50:00* Test Item Value Reference Range Interpretation Comments Globulin (test code = 48350-6) 4.1 2.3-3.5 H [facility] HospitalAlbumin/Globulin Wffdf0719-11-97 00:50:00 * Test Item Value Reference Range Interpretation Comments Albumin/Globulin Ratio (test code = 1759-0) 0.9 0.8-2.0 [facility] HospitalAlkaline Gtwbxwyfdwk2420-99-84 00:50:00* Test Item Value Reference Range Interpretation Comments Alkaline Phosphatase (test code = 6768-6) 395 40-150 H [facility] HospitalWhite Blood Tjtnl8605-02-11 00:19:00* Test Item Value Reference Range Interpretation Comments White Blood Count (test code = 6690-2) 8.42 4.8-10.8 [facility] HospitalRed Blood Pjkod7570-26-53 00:19:00* Test Item Value Reference Range Interpretation Comments Red Blood Count (test code = 789-8) 3.89 4.3-5.7 L [facility] HospitalHemoglobin2020-02-08 00:19:00* Test Item Value Reference Range Interpretation Comments Hemoglobin (test code = 45551-7) 13.5 14.0-18.0 L [facility] HospitalHematocrit2020-02-08 00:19:00* Test Item Value Reference Range Interpretation Comments Hematocrit (test code = 4544-3) 40.6 38.2-49.6 [facility] HospitalMean Corpuscular Tgvvrk7488-61-97 00:19:00* Test Item Value Reference Range Interpretation Comments Mean Corpuscular Volume (test code = 787-2) 104.4 81-99 H [facility] HospitalMean Corpuscular Ymdeagncnl2982-57-91 00:19:00* Test Item Value Reference Range Interpretation Comments Mean Corpuscular Hemoglobin (test code = 785-6) 34.7 28-32 H [facility] HospitalMean Corpuscular Hemoglobin Concent 2019-12-14 00:19:00* Test Item Value Reference Range Interpretation Comments Mean Corpuscular Hemoglobin Concent (test code = 786-4) 33.3 31-35 [facility] HospitalRed Cell Distribution Kjqzs9943-67-50 00:19:00* Test Item Value Reference Range Interpretation Comments Red Cell Distribution Width (test code = 08454-3) 13.0 11.7 -14.4 [facility] HospitalPlatelet Slizi6281-54-93 00:19:00* Test Item Value Reference Range Interpretation Comments Platelet Count (test code = 777-3) 223 140-360 [facility] HospitalNeutrophils (%) (Auto)2019-12-14 00:19:00 * Test Item Value Reference Range Interpretation Comments Neutrophils (%) (Auto) (test code = 54882-8) 55.7 38.7-80.0 [facility] HospitalLymphocytes (%) (Auto)2019-12-14 00:19:00 * Test Item Value Reference Range Interpretation Comments Lymphocytes (%) (Auto) (test code = 736-9) 30.0 18.0-39.1 [facility] HospitalMonocytes (%) (Auto)2019-12-14 00:19:00* Test Item Value Reference Range Interpretation Comments Monocytes (%) (Auto) (test code = 5905-5) 8.7 4.4-11.3 [facility] HospitalEosinophils (%) (Auto)2019-12-14 00:19:00 * Test Item Value Reference Range Interpretation Comments Eosinophils (%) (Auto) (test code = 713-8) 4.9 0.0-6.0 [facility] HospitalBasophils (%) (Auto)2019-12-14 00:19:00* Test Item Value Reference Range Interpretation Comments Basophils (%) (Auto) (test code = 706-2) 0.5 0.0-1.0 [facility] HospitalIM GRANULOCYTES %2019-12-14 00:19:00* Test Item Value Reference Range Interpretation Comments IM GRANULOCYTES % (test code = IM GRANULOCYTES %) 0.2 0.0- 1.0 [facility] HospitalNeutrophils # (Auto)2019-12-14 00:19:00* Test Item Value Reference Range Interpretation Comments Neutrophils # (Auto) (test code = 751-8) 4.7 2.1-6.9 [facility] HospitalLymphocytes # (Auto)2019-12-14 00:19:00* Test Item Value Reference Range Interpretation Comments Lymphocytes # (Auto) (test code = 14358-8) 2.5 1.0-3.2 [facility] HospitalMonocytes # (Auto)2019-12-14 00:19:00* Test Item Value Reference Range Interpretation Comments Monocytes # (Auto) (test code = 742-7) 0.7 0.2-0.8 [facility] HospitalEosinophils # (Auto)2019-12-14 00:19:00* Test Item Value Reference Range Interpretation Comments Eosinophils # (Auto) (test code = 711-2) 0.4 0.0-0.4 [facility] HospitalBasophils # (Auto)2019-12-14 00:19:00* Test Item Value Reference Range Interpretation Comments Basophils # (Auto) (test code = 704-7) 0.0 0.0-0.1 [facility] HospitalAbsolute Immature Granulocyte (auto 2019-12-14 00:19:00* Test Item Value Reference Range Interpretation Comments Absolute Immature Granulocyte (auto (nathan t code = Absolute Immature Granulocyte (auto) 0.02 0-0.1 [facility] HospitalLUMBAR 3 LWUQ7046-69-89 22:12:00 [place] [address] Patient Name: ONEIL ACHARYA MR #: [id number] : 1935 Age/Sex: 84/M Req #: [id number] Adm Physician: Ordered by: LAURYN ESPINOZA MD Report #: [id number] Location: ER Room/Bed: Procedure: DX/LUMBAR 3 VIEW Exam Date: 12/13/19 Exam Ti me: 2115 REPORT STATUS: Signed L umbar Spine Radiographs: 3 views HISTORY: Back pain with into left le g. COMPARISON: None available. DISCUSSION: There are five non-rib be aring lumbar vertebral bodies, however, there is partial sacralization of L5, with a right L5-S1 pseudoarthrosis. The alignment of the spine is within grace l limits. No displaced fracture or compression deformity is identified. M ultilevel degenerative disc disease and spondylosis of the lumbar spine, more severely at L4-L5 and L5-S1. Laminectomy changes are present at L4-L5 and L5- S1. Degenerative changes of the SI joints. Cholecystectomy clips. IMPRESSION: Multilevel degenerative disc disease and spondylosis of the oumou mbar spine, more severely at L4-L5 and L5-S1. Signed by: Dr. Vega Butler M.D. on 12/13/2019 10:14 PM Dictated By: ANIL Cho MD 13 Transcrib ed By: RHEA on 12/13/192213 COPY TO: LAURYN ESPINOZA MD CHEST 2 [id number] 22:07:00 [place] [address] Patient Name: ONEIL ACHARYA MR #: [id number] : 1935 Age/Sex: 84/M Req #: [id number] Adm Physician: Ordered by: LAURYN ESPINOZA MD Report #: [id number] Location: ER Room/Bed: Procedure: DX/CHEST 2 VIEWS Exam Date: 12/13/19 Exam Ti me: 2100 REPORT STATUS: Signed E XAMINATION: CHEST 2 VIEWS INDICATION: Cough. Blood tinged sputum this morning COMPARISON: None. Correlation CT chest 02/05/2019. FINDING S: TUBES and LINES: None. LUNGS: Patchy airspace disease in the right up per lobe medially, and bilateral lower lobes, concerning for multifocal pneumo chetan. PLEURA: No pleural effusion or pneumothorax. HEART AND MEDIASTIN UM: The cardiomediastinal silhouette is unremarkable. There are atherosclerot ic calcifications within the aorta. BONES AND SOFT TISSUES: No acute osseo us lesion. Soft tissues are unremarkable. UPPER ABDOMEN: No free air und er the diaphragm. IMPRESSION: 1. Patchy airspace disease in the r ight upper lobe medially, and bilateral lower lobes, concerning for multifocal pneumonia in the proper clinical setting. Recommend follow-up chest PA and la teral views after treatment to document resolution. 2. Bilateral pulmonar y nodules present on prior CT examination are not well evaluated with this exa m. Signed by: Dr. Vega Butler M.D. on 12/13/2019 10:12 PM Dictated By: ANIL BUTLER MD, MD 11 Transcribed By: RHEA on 12/13/192211 COPY TO: LAURYN KNOWLES MD Blood leukocytes automated count (number/volume) 2019-12-12 23:00:00* Test Item Value Reference Range Interpretation Comments White Blood Count (test code = 6690-2) 8.42 4.8-10.8 [facility] Hospital[facility] erythrocytes automated count (number/volume)2019-12-12 23:00:00* Test Item Value Reference Range Interpretation Comments Red Blood Count (test code = 789-8) 3.89 4.3-5.7 [facility] HospitalBlood hemoglobin measurement (moles/volume)2019-12-12 23:00:00* Test Item Value Reference Range Interpretation Comments Hemoglobin (test code = 56865-9) 13.5 14.0-18.0 [facility] HospitalAutomated blood hematocrit (volume fraction)2019-12-12 23:00:00* Test Item Value Reference Range Interpretation Comments Hematocrit (test code = 4544-3) 40.6 38.2-49.6 [facility] HospitalAutomated erythrocyte mean corpuscular hfusdi8927-69-11 23:00:00* Test Item Value Reference Range Interpretation Comments Mean Corpuscular Volume (test code = 787-2) 104.4 81-99 [facility] HospitalAutomated erythrocyte mean corpuscular hemoglobin (mass per erythrocyte)2019-12-12 23:00:00* Test Item Value Reference Range Interpretation Comments Mean Corpuscular Hemoglobin (test code = 785-6) 34.7 28-32 [facility] HospitalAutomated erythrocyte mean corpuscular hemoglobin concentration measurement (mass/volume)2019-12-12 23:00:00* Test Item Value Reference Range Interpretation Comments Mean Corpuscular Hemoglobin Concent (test code = 786-4) 33.3 31-35 [facility] HospitalRDW YypIt-Lao0249-16-06 23:00:00* Test Item Value Reference Range Interpretation Comments Red Cell Distribution Width (test code = 55208-9) 13.0 11.7 -14.4 [facility] HospitalAutblowing rock hospitaled blood platelet count (count/volume)2019-12-12 23:00:00* Test Item Value Reference Range Interpretation Comments Platelet Count (test code = 777-3) 223 140-360 [facility] HospitalAutblowing rock hospitaled blood segmented neutrophil count as percentage of total izxnljiqpg3956-83-34 23:00:00* Test Item Value Reference Range Interpretation Comments Neutrophils (%) (Auto) (test code = 03293-2) 55.7 38.7-80.0 [facility] HospitalAutomated blood lymphocyte count as percentage ot total wgfzsgallq0971-30-70 23:00:00* Test Item Value Reference Range Interpretation Comments Lymphocytes (%) (Auto) (test code = 736-9) 30.0 18.0-39.1 [facility] HospitalAutomated blood monocyte count as percentage of total nrldvompis3604-89-65 23:00:00* Test Item Value Reference Range Interpretation Comments Monocytes (%) (Auto) (test code = 5905-5) 8.7 4.4-11.3 [facility] HospitalAutomated blood eosinophil count as percentage of total ghwamcgrxc6576-22-32 23:00:00* Test Item Value Reference Range Interpretation Comments Eosinophils (%) (Auto) (test code = 713-8) 4.9 0.0-6.0 [facility] HospitalAutomated blood basophil count as percentage of total zciflqnprc5737-53-52 23:00:00* Test Item Value Reference Range Interpretation Comments Basophils (%) (Auto) (test code = 706-2) 0.5 0.0-1.0 [facility] HospitalFluoroscopic procedure less than one hour qlvevell8969-93-33 23:00:00* Test Item Value Reference Range Interpretation Comments IM GRANULOCYTES % (test code = IM GRANULOCYTES %) 0.2 0.0- 1.0 [facility] HospitalAutomated blood neutrophil count 2019-12-12 23:00:00* Test Item Value Reference Range Interpretation Comments Neutrophils # (Auto) (test code = 751-8) 4.7 2.1-6.9 [facility] HospitalBlood lymphocytes count (number/volume) 2019-12-12 23:00:00* Test Item Value Reference Range Interpretation Comments Lymphocytes # (Auto) (test code = 77913-7) 2.5 1.0-3.2 [facility] HospitalBlood monocytes automated count (number/volume)2019-12-12 23:00:00* Test Item Value Reference Range Interpretation Comments Monocytes # (Auto) (test code = 742-7) 0.7 0.2-0.8 [facility] HospitalAutomated blood eosinophil count 2019-12-12 23:00:00* Test Item Value Reference Range Interpretation Comments Eosinophils # (Auto) (test code = 711-2) 0.4 0.0-0.4 [facility] HospitalAutomated blood basophil count (count/volume)2019-12-12 23:00:00* Test Item Value Reference Range Interpretation Comments Basophils # (Auto) (test code = 704-7) 0.0 0.0-0.1 [facility] HospitalFluoroscopic procedure less than one hour cuxtffvq6655-23-98 23:00:00* Test Item Value Reference Range Interpretation Comments Absolute Immature Granulocyte (auto (nathan t code = Absolute Immature Granulocyte (auto) 0.02 0-0.1 [facility] Hospital[facility] or plasma sodium measurement (moles/volume)2019-12-12 23:00:00* Test Item Value Reference Range Interpretation Comments Sodium Level (test code = 2951-2) 138 136-145 [facility] Hospitalerum or plasma potassium measurement (moles/volume)2019-12-12 23:00:00* Test Item Value Reference Range Interpretation Comments Potassium Level (test code = 2823-3) 3.7 3.5-5.1 [facility] Hospitalerum or plasma chloride measurement (moles/volume)2019-12-12 23:00:00* Test Item Value Reference Range Interpretation Comments Chloride Level (test code = 2075-0) 106 98-107 [facility] Hospitalerum or plasma carbon dioxide, total measurement (moles/volume)2019-12-12 23:00:00* Test Item Value Reference Range Interpretation Comments Carbon Dioxide Level (test code = 2028-9) 23 22-29 [facility] Hospitalerum or plasma anion bdv5337-91-53 23:00:00* Test Item Value Reference Range Interpretation Comments Anion Gap (test code = 06377-9) 12.7 8-16 [facility] Hospitalerum or plasma urea nitrogen measurement (mass/volume)2019-12-12 23:00:00* Test Item Value Reference Range Interpretation Comments Blood Urea Nitrogen (test code = 3094-0) 21 7-26 [facility] Hospitalerum or plasma creatinine measurement (mass/volume)2019-12-12 23:00:00* Test Item Value Reference Range Interpretation Comments Creatinine (test code = 2160-0) 1.23 0.72-1.25 [facility] Hospitalerum or plasma urea nitrogen/creatinine mass ybwjf0855-62-67 23:00:00* Test Item Value Reference Range Interpretation Comments BUN/Creatinine Ratio (test code = 3097-3) 17 6-25 [facility] HospitalEstimated glomerular filtration rate (GFR) yaheevgtciuvx7782-01-37 23:00:00* Test Item Value Reference Range Interpretation Comments Estimat Glomerular Filtration Rate (test code = 047675934) 56 >60 Ranges were taken from the National Kidney Disease Education Program and the [facility] literature.Reference ranges:60 or greater: Zfzpvn86-76 ( for 3 consecutive months): Chronic kidney disease 15 or less: Kidney failureHarris Health System Ben Taub HospitalGlucose xlzwtusvscp8562-50-75 23:00:00* Test Item Value Reference Range Interpretation Comments Glucose Level (test code = VUG0730) 94 74-118 [facility] Hospitalerum or plasma calcium measurement (mass/volume)2019-12-12 23:00:00* Test Item Value Reference Range Interpretation Comments Calcium Level (test code = 46939-9) 9.6 8.4-10.2 [facility] Hospitalerum or plasma total bilirubin measurement (mass/volume)2019-12-12 23:00:00* Test Item Value Reference Range Interpretation Comments Total Bilirubin (test code = 1975-2) 0.3 0.2-1.2 [facility] HospitalFluoroscopic procedure less than one hour vnvkejwh7464-05-96 23:00:00* Test Item Value Reference Range Interpretation Comments Aspartate Amino Transf (AST/SGOT) (test code = Aspartate Amino Transf (AST/SGOT)) 21 5-34 [facility] Hospitalerum or plasma alanine aminotransferase measurement (enzymatic activity/volume)2019-12-12 23:00:00* Test Item Value Reference Range Interpretation Comments Alanine Aminotransferase (ALT/SGPT) (test code = 1742-6) 7 0-55 [facility] Hospitalerum or plasma protein measurement (mass/volume)2019-12-12 23:00:00* Test Item Value Reference Range Interpretation Comments Total Protein (test code = 2885-2) 7.7 6.5-8.1 [facility] Hospitalerum or plasma albumin measurement (mass/volume)2019-12-12 23:00:00* Test Item Value Reference Range Interpretation Comments Albumin (test code = 1751-7) 3.6 3.5-5.0 [facility] HospitalPlasma globulin measurement (mass/volume) 2019-12-12 23:00:00* Test Item Value Reference Range Interpretation Comments Globulin (test code = 34113-2) 4.1 2.3-3.5 [facility] Hospitalerum or plasma albumin/globulin mass utfwj0323-53-00 23:00:00* Test Item Value Reference Range Interpretation Comments Albumin/Globulin Ratio (test code = 1759-0) 0.9 0.8-2.0 [facility] Hospitalerum or plasma alkaline phosphatase measurement (enzymatic activity/volume)2019-12-12 23:00:00* Test Item Value Reference Range Interpretation Comments Alkaline Phosphatase (test code = 6768-6) 395 40-150 [facility] HospitalBlood nurkalz3038-88-29 23:00:00* Test Item Value Reference Range Interpretation Comments Blood Culture (test code = 76670280) NO GROWTH AFTER 5 DAYS, FINAL REPORT [facility] HospitalBacterial blood ocghqat1061-27-46 23:00:00* Test Item Value Reference Range Interpretation Comments Blood Culture (test code = 600-7) STAPHYLOCOCCUS SP COAG NEG [facility] HospitalCT CHEST [id number] 21:24:00 [facility] [address] [place] [address] Patient Name: ONEIL ACHARYA MR #: [id number] : 1935 Age/Sex: 83/M Req #: [id number] Adm Physician: Ordered by: FAVIOLA FREED MD Report #: [id number] Location: ER Room/Bed: Procedure: 28 CT/CT CHEST W Exam Date: 02/05/19 Exam Time: 20 40 REPORT STATUS: Signed EXAMINA TION: CT scan of the chest with contrast. TECHNIQUE: Helical CT images of the chest were performed from the lung apices to the level of the adrenal glan ds after the intravenous administration of 100 cc of Isovue 300. Coronal and sagittal reformatted images were obtained.Dose modulation, iterative reconstru ction, and/or weight based adjustment of the mA/kV was utilized to reduce the radiation dose to as low as reasonably achievable. COMPARISON: None. CLINICAL HISTORY:Shortness of breath, tachycardia DISCUSSION: LINES/ TUBES: None. LUNGS AND AIRWAYS: No pulmonary emboli. Multiple bilater al pulmonary nodules (approximately 20) scattered throughout the lungs. F or example the largest include a left upper lobe nodule 1.2 cm image 37, a rig ht upper lobe nodule 0.8 cm image 54, a lingular 1.1 cm nodule image 69, and a right lower lobe 1.8 cm nodule image 61. PLEURA: No pneumothorax or pleural effusions. HEART AND MEDIASTINUM: The thyroid gland is normal. The he art and pericardium are within normal limits. LYMPH NODES: There is no me diastinal, hilar or axillary lymphadenopathy. ABDOMEN: Bilateral renal cyst s. Cholecystectomy. Otherwise, unremarkable. BONES AND SOFT TISSUES: No acu te bony abnormalities. IMPRESSION: No pulmonary emboli Multiple bilateral pulmonary nodules with the largest right lower lobe measuring 1.8 cm . Signed by: Dr. Erika Burdick M.D. on 02/05/2019 9:46 PM Dictated B y: ERIKA BURDICK MD 45 COPY TO: JANETH FREED MD Troponin [id number] 19:35:00* Test Item Value Reference Range Interpretation Comments Troponin I (test code = VDX4049) 0.008 0-0.300 [facility] HospitalB-Type Natriuretic Jhpofto7719-98-00 19:22:00* Test Item Value Reference Range Interpretation Comments B-Type Natriuretic Peptide (test code = 95757-3) 29.4 0-100 [facility] Hospitalodium Srhis7069-73-66 19:19:00* Test Item Value Reference Range Interpretation Comments Sodium Level (test code = 2951-2) 135 136-145 L [facility] HospitalPotassium Ttzfj8225-60-38 19:19:00* Test Item Value Reference Range Interpretation Comments Potassium Level (test code = 2823-3) 3.9 3.5-5.1 [facility] HospitalChloride Uvgfn5899-86-90 19:19:00* Test Item Value Reference Range Interpretation Comments Chloride Level (test code = 2075-0) 104 98-107 [facility] HospitalCarbon Dioxide Qvwsp9550-30-67 19:19:00* Test Item Value Reference Range Interpretation Comments Carbon Dioxide Level (test code = 2028-9) 26 22-29 [facility] HospitalAnion Vhd7644-33-93 19:19:00* Test Item Value Reference Range Interpretation Comments Anion Gap (test code = 45484-4) 8.9 8-16 [facility] HospitalBlood Urea Rzxdeacx4321-88-34 19:19:00* Test Item Value Reference Range Interpretation Comments Blood Urea Nitrogen (test code = 3094-0) 20 7-26 [facility] HospitalCreatinine2019-04-02 19:19:00* Test Item Value Reference Range Interpretation Comments Creatinine (test code = 2160-0) 1.30 0.72-1.25 H [facility] HospitalBUN/Creatinine Avoob2037-33-01 19:19:00* Test Item Value Reference Range Interpretation Comments BUN/Creatinine Ratio (test code = 3097-3) 15 6-25 [facility] HospitalEstimat Glomerular Filtration Rate 2019-02-05 19:19:00* Test Item Value Reference Range Interpretation Comments Estimat Glomerular Filtration Rate (test code = 969635197) 52 >60 L Ranges were taken from the National Kidney Disease Education Program and the [facility] literature.Reference ranges:60 or greater: Xaaeux17-98 ( for 3 consecutive months): Chronic kidney disease 15 or less: Kidney failureHarris Health System Ben Taub HospitalGlucose Hpqxl0717-73-19 19:19:00* Test Item Value Reference Range Interpretation Comments Glucose Level (test code = QXY9861) 109 74-118 [facility] HospitalCalcium Ytotq2572-98-21 19:19:00* Test Item Value Reference Range Interpretation Comments Calcium Level (test code = 96801-2) 9.7 8.4-10.2 [facility] HospitalTotal Gfcyeefwk7789-32-14 19:19:00* Test Item Value Reference Range Interpretation Comments Total Bilirubin (test code = 1975-2) 0.3 0.2-1.2 [facility] HospitalAspartate Amino Transf (AST/SGOT) 2019-02-05 19:19:00* Test Item Value Reference Range Interpretation Comments Aspartate Amino Transf (AST/SGOT) (test code = Aspartate Amino Transf (AST/SGOT)) 22 5-34 [facility] HospitalAlanine Aminotransferase (ALT/SGPT) 2019-02-05 19:19:00* Test Item Value Reference Range Interpretation Comments Alanine Aminotransferase (ALT/SGPT) (test code = 1742-6) 9 0-55 [facility] HospitalTotal Otajutn8833-35-61 19:19:00* Test Item Value Reference Range Interpretation Comments Total Protein (test code = 2885-2) 7.5 6.5-8.1 [facility] HospitalAlbumin2019-04-02 19:19:00* Test Item Value Reference Range Interpretation Comments Albumin (test code = 1751-7) 3.1 3.5-5.0 L [facility] HospitalGlobulin2019-04-02 19:19:00* Test Item Value Reference Range Interpretation Comments Globulin (test code = 78438-7) 4.4 2.3-3.5 H [facility] HospitalAlbumin/Globulin Ecpch6182-90-85 19:19:00 * Test Item Value Reference Range Interpretation Comments Albumin/Globulin Ratio (test code = 1759-0) 0.7 0.8-2.0 L [facility] HospitalAlkaline Euzmdzmyzrq4889-04-69 19:19:00* Test Item Value Reference Range Interpretation Comments Alkaline Phosphatase (test code = 6768-6) 151 40-150 H [facility] HospitalProthrombin Hnpj9704-79-74 19:11:00* Test Item Value Reference Range Interpretation Comments Prothrombin Time (test code = 5902-2) 14.3 11.9-14.5 [facility] HospitalProthromb Time International Ratio 2019-02-05 19:11:00* Test Item Value Reference Range Interpretation Comments Prothromb Time International Ratio (test code = 6301-6) 1.06 Oral Anticoagulant Therapy INR Values:1. Low Intensity Therapy 1.5 - 2.02 . Moderate Intensity Therapy 2.0 - 3.03. High Intensity Therapy(1) 2.5 - 3. 54. High Intensity Therapy(2) 3.0 - 4.05. Panic Value INR > 5.0 [facility] HospitalActivated Partial Thromboplast Time 2019-02-05 19:11:00* Test Item Value Reference Range Interpretation Comments Activated Partial Thromboplast Time (test code = 72140-2) 45.3 23.8-35.5 H [facility] HospitalWhite Blood Muhyu5321-21-86 18:54:00* Test Item Value Reference Range Interpretation Comments White Blood Count (test code = 6690-2) 6.77 4.8-10.8 [facility] HospitalRed Blood Zompc2669-81-17 18:54:00* Test Item Value Reference Range Interpretation Comments Red Blood Count (test code = 789-8) 3.80 4.3-5.7 L [facility] HospitalHemoglobin2019-04-02 18:54:00* Test Item Value Reference Range Interpretation Comments Hemoglobin (test code = 81708-8) 13.3 14.0-18.0 L [facility] HospitalHematocrit2019-04-02 18:54:00* Test Item Value Reference Range Interpretation Comments Hematocrit (test code = 4544-3) 39.5 38.2-49.6 [facility] HospitalMean Corpuscular Qsbftp3879-98-06 18:54:00* Test Item Value Reference Range Interpretation Comments Mean Corpuscular Volume (test code = 787-2) 103.9 81-99 H [facility] HospitalMean Corpuscular Siffnabsyi6918-26-94 18:54:00* Test Item Value Reference Range Interpretation Comments Mean Corpuscular Hemoglobin (test code = 785-6) 35.0 28-32 H [facility] HospitalMean Corpuscular Hemoglobin Concent 2019-02-05 18:54:00* Test Item Value Reference Range Interpretation Comments Mean Corpuscular Hemoglobin Concent (test code = 786-4) 33.7 31-35 [facility] HospitalRed Cell Distribution Gsaxw3638-18-43 18:54:00* Test Item Value Reference Range Interpretation Comments Red Cell Distribution Width (test code = 38149-9) 13.2 11.7 -14.4 [facility] HospitalPlatelet Ovnyi8822-24-66 18:54:00* Test Item Value Reference Range Interpretation Comments Platelet Count (test code = 777-3) 224 140-360 [facility] HospitalNeutrophils (%) (Auto)2019-02-05 18:54:00 * Test Item Value Reference Range Interpretation Comments Neutrophils (%) (Auto) (test code = 78473-5) 59.5 38.7-80.0 [facility] HospitalLymphocytes (%) (Auto)2019-02-05 18:54:00 * Test Item Value Reference Range Interpretation Comments Lymphocytes (%) (Auto) (test code = 736-9) 25.3 18.0-39.1 [facility] HospitalMonocytes (%) (Auto)2019-02-05 18:54:00* Test Item Value Reference Range Interpretation Comments Monocytes (%) (Auto) (test code = 5905-5) 9.6 4.4-11.3 [facility] HospitalEosinophils (%) (Auto)2019-02-05 18:54:00 * Test Item Value Reference Range Interpretation Comments Eosinophils (%) (Auto) (test code = 713-8) 5.0 0.0-6.0 [facility] HospitalBasophils (%) (Auto)2019-02-05 18:54:00* Test Item Value Reference Range Interpretation Comments Basophils (%) (Auto) (test code = 706-2) 0.3 0.0-1.0 [facility] HospitalIM GRANULOCYTES %2019-02-05 18:54:00* Test Item Value Reference Range Interpretation Comments IM GRANULOCYTES % (test code = IM GRANULOCYTES %) 0.3 0.0- 1.0 [facility] HospitalNeutrophils # (Auto)2019-02-05 18:54:00* Test Item Value Reference Range Interpretation Comments Neutrophils # (Auto) (test code = 751-8) 4.0 2.1-6.9 [facility] HospitalLymphocytes # (Auto)2019-02-05 18:54:00* Test Item Value Reference Range Interpretation Comments Lymphocytes # (Auto) (test code = 10801-4) 1.7 1.0-3.2 [facility] HospitalMonocytes # (Auto)2019-02-05 18:54:00* Test Item Value Reference Range Interpretation Comments Monocytes # (Auto) (test code = 742-7) 0.7 0.2-0.8 [facility] HospitalEosinophils # (Auto)2019-02-05 18:54:00* Test Item Value Reference Range Interpretation Comments Eosinophils # (Auto) (test code = 711-2) 0.3 0.0-0.4 [facility] HospitalBasophils # (Auto)2019-02-05 18:54:00* Test Item Value Reference Range Interpretation Comments Basophils # (Auto) (test code = 704-7) 0.0 0.0-0.1 [facility] HospitalAbsolute Immature Granulocyte (auto 2019-02-05 18:54:00* Test Item Value Reference Range Interpretation Comments Absolute Immature Granulocyte (auto (nathan t code = Absolute Immature Granulocyte (auto) 0.02 0-0.1 [facility] HospitalTHROMBOPLASTIN TIME KBZDWIZ6876-62-71 11:17:00* Test Item Value Reference Range Interpretation Comments THROMBOPLASTIN TIME PARTIAL (test code = PTT) 43.4 seconds 25.0-36. 5 H IS PATIENT ON ANTICOAGULANTS? YLIST ANTICOAGULANTS HEPARINTHROMBOPLASTIN TIME ECSJXUK7863-59-96 04:45:00* Test Item Value Reference Range Interpretation Comments THROMBOPLASTIN TIME PARTIAL (test code = PTT) 50.7 seconds 25.0-36. 5 H IS PATIENT ON ANTICOAGULANTS? YLIST ANTICOAGULANTS HEPARINAG PROSTATE QWVZNKKM3462-61-04 04:09:00* Test Item Value Reference Range Interpretation Comments AG PROSTATE SPECIFIC (test code = PSA) 103.20 ng/mL 0.0-4.0 H AG HYLFWDVKBKINGSJP1777-28-31 04:09:00* Test Item Value Reference Range Interpretation Comments AG CARCINOEMBRYONIC (test code = CEA) 1.8 ng/mL 0.0-3.0 N "HEALTHY" SMOKERS CAN HAVE CEA VALUES UP TO 5 NG/ML. BENIGNDISORDERS SELDOM ELEVATE THE SERUM CEA LEVEL ABOVE 10 NG/ML. ALPHA FETOPROTEIN TUMOR IUODFO8759-90-36 04:09:00* Test Item Value Reference Range Interpretation Comments ALPHA FETOPROTEIN TUMOR MARKER (test code = AFPTM) 1.7 ng/mL 0.0 -8.3 [facility] Electrochemiluminescence Immunoassay(ECLIA)Values obtained with different assay methods or kits cannotbe used interchangeably. Results cannot be interpreted asabsolute evidence of the presence or absence of malignantdisease.This test is not interpretable in females. [id number] 04:09:00* Test Item Value Reference Range Interpretation Comments CA 19-9 (test code = CA19) Unit/mL AG PROSTATE [id number] 04:09:00* Test Item Value Reference Range Interpretation Comments AG PROSTATE SPECIFIC (test code = PSA) 103.20 ng/mL 0.0-4.0 H AG [id number] 04:09:00* Test Item Value Reference Range Interpretation Comments AG CARCINOEMBRYONIC (test code = CEA) 1.8 ng/mL 0.0-3.0 N "HEALTHY" SMOKERS CAN HAVE CEA VALUES UP TO 5 NG/ML. BENIGNDISORDERS SELDOM ELEVATE THE SERUM CEA LEVEL ABOVE 10 NG/ML. ALPHA FETOPROTEIN TUMOR [id number] 04:09:00* Test Item Value Reference Range Interpretation Comments ALPHA FETOPROTEIN TUMOR MARKER (test code = AFPTM) 1.7 ng/mL 0.0 -8.3 [facility] Electrochemiluminescence Immunoassay(ECLIA)Values obtained with different assay methods or kits cannotbe used interchangeably. Results cannot be interpreted asabsolute evidence of the presence or absence of malignantdisease.This test is not interpretable in females. CA [id number] 04:09:00* Test Item Value Reference Range Interpretation Comments CA 19-9 (test code = CA19) 14 U/mL 0-35 [facility] Electrochemiluminescence Immunoassay(ECLIA)Values obtained with different assay methods or kits cannotbe used interchangeably. Results cannot be interpreted asabsolute evidence of the presence or absence of malignantdisease.Performed At: [facility] [id number] [place], [place] [id number] Elan Harden MD Ph:[phone] THROMBOPLASTIN TIME [id number] 20:15:00* Test Item Value Reference Range Interpretation Comments THROMBOPLASTIN TIME PARTIAL (test code = PTT) 58.6 seconds 25.0-36. 5 H IS PATIENT ON ANTICOAGULANTS? YLIST ANTICOAGULANTS HEPARINTHROMBOPLASTIN TIME [id number] 14:47:00* Test Item Value Reference Range Interpretation Comments THROMBOPLASTIN TIME PARTIAL (test code = PTT) 58.1 seconds 25.0-36. 5 H IS PATIENT ON ANTICOAGULANTS? YLIST ANTICOAGULANTS HEPARINBASIC METABOLIC [id number] 14:41:00* Test Item Value Reference Range Interpretation Comments SODIUM (test code = NA) 140 mmol/L 136-145 N POTASSIUM (test code = K) 3.8 mmol/L 3.5-5.1 N CHLORIDE (test code = CL) 109.0 mmol/L 98-107 H CARBON DIOXIDE (test code = CO2) 26.0 mmol/L 21-32 N ANION GAP (test code = GAP) 8.8 10-20 L GLUCOSE (test code = GLU) 119 mg/dL 74-106 H BLOOD UREA NITROGEN (test code = BUN) 12 mg/dL 7-18 N GLOMERULAR FILTRATION RATE (test code = GFR) 58 mL/min >=60 Estimated GFR by using Modified MDRD formula.Chronic kidney disease is defined as either kidney damageor GFR <60 mL/min/1.73 m2 for >3 months. CREATININE (test code = CREAT) 1.20 mg/dL 0.7-1.3 N BUN/CREATININE RATIO (test code = BUN/CREA) 10.0 10-20 N CALCIUM (test code = CA) 8.9 mg/dL 8.5-10.1 N BASIC METABOLIC [id number] 14:34:00* Test Item Value Reference Range Interpretation Comments SODIUM (test code = NA) 140 mmol/L 136-145 N POTASSIUM (test code = K) 3.8 mmol/L 3.5-5.1 N CHLORIDE (test code = CL) 109.0 mmol/L 98-107 H CARBON DIOXIDE (test code = CO2) mmol/L 21-32 ANION GAP (test code = GAP) 10-20 GLUCOSE (test code = GLU) mg/dL 74-106 BLOOD UREA NITROGEN (test code = BUN) mg/dL 7-18 GLOMERULAR FILTRATION RATE (test code = GFR) mL/min >=60 CREATININE (test code = CREAT) mg/dL 0.7-1.3 BUN/CREATININE RATIO (test code = BUN/CREA) 10-20 CALCIUM (test code = CA) mg/dL 8.5-10.1 THROMBOPLASTIN TIME [id number] 07:50:00* Test Item Value Reference Range Interpretation Comments THROMBOPLASTIN TIME PARTIAL (test code = PTT) 73.5 seconds 25.0-36. 5 H IS PATIENT ON ANTICOAGULANTS? YLIST ANTICOAGULANTS HEPARINTHROMBOPLASTIN TIME [id number] 22:30:00* Test Item Value Reference Range Interpretation Comments THROMBOPLASTIN TIME PARTIAL (test code = PTT) 84.2 seconds 25.0-36. 5 H IS PATIENT ON ANTICOAGULANTS? YLIST ANTICOAGULANTS HEPARINAG PROSTATE [id number] 20:39:00* Test Item Value Reference Range Interpretation Comments AG PROSTATE SPECIFIC (test code = PSA) 103.20 ng/mL 0.0-4.0 H AG [id number] 20:39:00* Test Item Value Reference Range Interpretation Comments AG CARCINOEMBRYONIC (test code = CEA) 1.8 ng/mL 0.0-3.0 N "HEALTHY" SMOKERS CAN HAVE CEA VALUES UP TO 5 NG/ML. BENIGNDISORDERS SELDOM ELEVATE THE SERUM CEA LEVEL ABOVE 10 NG/ML. ALPHA FETOPROTEIN TUMOR [id number] 20:39:00* Test Item Value Reference Range Interpretation Comments ALPHA FETOPROTEIN TUMOR MARKER (test code = AFPTM) ng/mL [id number] 20:39:00* Test Item Value Reference Range Interpretation Comments CA 19-9 (test code = CA19) Unit/mL AG PROSTATE [id number] 19:00:00* Test Item Value Reference Range Interpretation Comments AG PROSTATE SPECIFIC (test code = PSA) ng/mL 0.0-4.0 AG [id number] 19:00:00* Test Item Value Reference Range Interpretation Comments AG CARCINOEMBRYONIC (test code = CEA) 1.8 ng/mL 0.0-3.0 N "HEALTHY" SMOKERS CAN HAVE CEA VALUES UP TO 5 NG/ML. BENIGNDISORDERS SELDOM ELEVATE THE SERUM CEA LEVEL ABOVE 10 NG/ML. ALPHA FETOPROTEIN TUMOR [id number] 19:00:00* Test Item Value Reference Range Interpretation Comments ALPHA FETOPROTEIN TUMOR MARKER (test code = AFPTM) ng/mL CA 19:00:00* Test Item Value Reference Range Interpretation Comments CA 19-9 (test code = CA19) Unit/mL THROMBOPLASTIN TIME [id number] 14:18:00* Test Item Value Reference Range Interpretation Comments THROMBOPLASTIN TIME PARTIAL (test code = PTT) 103.6 seconds 25.0-36 .5 HH Results called to BRIANNA [id number] by V.[email or web address] 01/30/19 1404Critical results verified and read back by Nurse? Y IS PATIENT ON ANTICOAGULANTS? YLIST ANTICOAGULANTS HEPARINTHROMBOPLASTIN TIME [id number] 07:02:00* Test Item Value Reference Range Interpretation Comments THROMBOPLASTIN TIME PARTIAL (test code = PTT) 177.0 seconds 25.0-36 .5 HH Results called to [id number] by V.LAB.SZ 01/30/19 0654Critical results verified and read back by Nurse? Y IS PATIENT ON ANTICOAGULANTS? YLIST ANTICOAGULANTS HEPARINHEMATOCRIT 2019-01-30 04:10:00* Test Item Value Reference Range Interpretation Comments HEMATOCRIT (test code = HCT) 42.0 % 42.0-52.0 N PLATELET [id number] 04:10:00* Test Item Value Reference Range Interpretation Comments PLATELET COUNT (test code = PLT) 202 K/mm3 150-450 N - CTA [id number] 21:55:00 Name: [facility] 1935 Age/S: 83 / M [address] [facility] Unit #: [id number] Loc: [place] [address] Phys: Scott Lyles MD Acct: [id number] Dis Date: Status: REG ER PHONE #: [phone] Exam Date: 01/29/20192133 FAX #: [phone] Reason: COUGH, HEMOPTYSIS EXAMS: CPT CODE: [id number] CTA CHEST [address] CT ANGIOGRAPHY OF CHEST WITH CONTRAST HISTORY: COUGH, HEMOPTYSIS TECHNIQUE: 2.[address] angiographic images of the chest after bolus IV administration of 100 mL of Isovue-370 contrast. Thin slab maximum intensity projection (MIP) reconstructions were generated. Automated exposure control for dose reduction. COMPARISON: Chest x-ray from earlier today FINDINGS: Nonopacification of the posterior segment left upper lobe pulmonary artery branch. Associated patchy groundglass opacity of the adjacent lung parenchyma. No other pulmonary embolus is observed. Scattered bilateral subcentimeter pulmonary nodules. No airspace consolidation or pleural effusion. Bibasilar platelike and subsegmental atelectasis. Central airways are patent. Normal heart size. No pericardial effusion. Thoracic aortic vascular calcification without aneurysm or dissection. Multiple mildly prominent subcarinal and hilar nodes. Visualized thyroid and esophagus are unremarkable. Cholecystectomy. Included upper abdominal contents are otherwise unremarkable. Degenerative changes of the spine and shoulders. IMPRESSION: Pulmonary embolus involving the posterior segment left upper lobe segmental branch. No other pulmonary embolus is observed. Scattered bilateral subcentimeter pulmonary nodules. Mildly prominent subcarinal and hilar nodes. Findings suspicious for pulmonary metastatic disease. PAGE 1 Signed Report (CONTINUED) Name: [facility] : 1935 Age/S: 83 / M [facility] Unit #: [id number] Loc: [place] [address] Phys: Scott Lyles MD Acct: [id number] Dis Date: Status: REG ER PHONE #: [phone] Exam Date: 2133 FAX #: [phone] Reason: COUGH, HEMOPTYSIS EXAMS: CPT CODE: [id number] CTA CHEST 32231 <Continued> at 2154 Reported and signed by: Swetha Ames D.O. CC: Ashish Hull MD; Scott Lyles MD Technologist:SHARRI CANO RT(R),CT CTDI: DLP: Trnscb Date/Time: 01/29/2019 (2154) [id number] Orig Print D/T: S: 01/29/2019 (2157) CTDI: DLP: PAGE 2 Signed Report PROTHROMBIN [id number] 21:09:00* Test Item Value Reference Range Interpretation Comments PROTHROMBIN TIME PATIENT (test code = PTP) 11.2 seconds 9.0-13.0 N INTERNATIONAL NORMAL RATIO (test code = INR) 1.0 0.8-1.2 N The therapeutic range for oral anticoagulant therapy formost indications is an international normalized ratio (INR)of between 2.0 and 3.0. The recommended therapeutic INRrange for various clinical situations is listed below: Clinical Situation INR range Pulmonary e mbolism treatment (2.0-3.0)Venous thrombosis treatmentVenous thrombosis prophylaxis (high risk surgery)Prevention of systemic embolism from: Acute myocardial infarction Valvular heart disease Atrial fibrillation Mechanical prosthetic heart valves (2.5-3.5) IS PATIENT ON ANTICOAGULANTS? NTHROMBOPLASTIN TIME [id number] 21:09:00* Test Item Value Reference Range Interpretation Comments THROMBOPLASTIN TIME PARTIAL (test code = PTT) 28.5 seconds 25.5-34. 3 N Therapeutic Range for patients on Heparin Therapy is 2 to2.5 times their baseline PTT level. IS PATIENT ON ANTICOAGULANTS? NCBC W/AUTO [id number] 20:40:00* Test Item Value Reference Range Interpretation Comments WHITE BLOOD CELL (test code = WBC) 6.5 K/mm3 4.5-12.5 N RED BLOOD CELL (test code = RBC) 3.81 mill/mm3 4.0-5.8 L HEMOGLOBIN (test code = HGB) 13.6 gram/dL 13.0-17.5 N HEMATOCRIT (test code = HCT) 39.3 % 42.0-52.0 L MEAN CELL VOLUME (test code = MCV) 103.1 fL 80-98 H MEAN CELL HGB (test code = MCH) 35.7 picogram 27.0-33.0 H MEAN CELL HGB CONCETRATION (test code = MCHC) 34.6 gram/dL 33.0-36. 0 N RED CELL DISTRIBUTION WIDTH (test code = RDW) 13.4 % 11.6-16. 2 N RED CELL DISTRIBUTION WIDTH SD (test code = RDW-SD) 50.2 fL 39 .2-49.5 H PLATELET COUNT (test code = PLT) 196 K/mm3 150-450 N MEAN PLATELET VOLUME (test code = MPV) 10.9 fL 6.7-11.0 N NEUTROPHIL % (test code = NT%) 56.8 % 39.0-69.0 N LYMPHOCYTE % (test code = LY%) 27.4 % 25.0-55.0 N MONOCYTE % (test code = MO%) 9.3 % 0.0-10.0 N EOSINOPHIL % (test code = EO%) 6.2 % 0.0-5.0 H BASOPHIL % (test code = BA%) 0.3 % 0.0-1.0 N NEUTROPHIL # (test code = NT#) 3.66 K/mm3 1.8-7.7 N LYMPHOCYTE # (test code = LY#) 1.77 K/mm3 1.0-5.0 N MONOCYTE # (test code = MO#) 0.60 K/mm3 0-0.8 N EOSINOPHIL # (test code = EO#) 0.40 K/mm3 0.0-0.5 N BASOPHIL # (test code = BA#) 0.02 K/mm3 0.0-0.2 N MANUAL DIFF REQUIRED (test code = MDIFF) NO, ONLY SCAN NEEDED DIFFERENTIAL [id number] 20:40:00* Test Item Value Reference Range Interpretation Comments STAIN ACCEPTABILITY (test code = STN ACCEPTABLE) STAIN ACCEPTABLE MACROCYTOSIS (test code = MACR) 1+ PLATELET ESTIMATE (test code = PLTEST) ADEQUATE PLATELET MORPHOLOGY (test code = PLTMORPH) SIZE VARIABLE - XR CHEST 1 [id number] 20:30:00 Name: ONEIL ACHARYA [facility] : 1935 Age/S:83 /M [address] [facility] Unit#:[id number] Loc: [place] [address] Phys: Kwabena Lacy MD Dis Date: PHONE #: [phone] Status: REG ER FAX #: [phone] Exam Date: 01/29/2019 Reason: CP EXAMS: CPT CODE: [id number] XR CHEST 1 V 31158 EXAM: Chest x-ray, one view; INFORMATION: Chest pain, coughing blood; IMPRESSION: 1. No evidence of active cardiopulmonary disease. 2. No significant change compared with the recent study from January 25, 2019. at 2030 Reported and signed by: Hayder Moffett M.D. CC: Ashish Hull MD; Kwabena Lacy MD Technologist: SHARRI CANO RT(R),CT Trnscrpt Data: 01/29/2019 (2029) David Orig Print D/T: S: 01/29/2019 (2032) PAGE 1 Signed Report CBC W/AUTO [id number] 19:26:00* Test Item Value Reference Range Interpretation Comments WHITE BLOOD CELL (test code = WBC) 6.5 K/mm3 4.5-12.5 N RED BLOOD CELL (test code = RBC) 3.81 mill/mm3 4.0-5.8 L HEMOGLOBIN (test code = HGB) 13.6 gram/dL 13.0-17.5 N HEMATOCRIT (test code = HCT) 39.3 % 42.0-52.0 L MEAN CELL VOLUME (test code = MCV) 103.1 fL 80-98 H MEAN CELL HGB (test code = MCH) 35.7 picogram 27.0-33.0 H MEAN CELL HGB CONCETRATION (test code = MCHC) 34.6 gram/dL 33.0-36. 0 N RED CELL DISTRIBUTION WIDTH (test code = RDW) 13.4 % 11.6-16. 2 N RED CELL DISTRIBUTION WIDTH SD (test code = RDW-SD) 50.2 fL 39 .2-49.5 H PLATELET COUNT (test code = PLT) 196 K/mm3 150-450 N MEAN PLATELET VOLUME (test code = MPV) 10.9 fL 6.7-11.0 N NEUTROPHIL % (test code = NT%) 56.8 % 39.0-69.0 N LYMPHOCYTE % (test code = LY%) 27.4 % 25.0-55.0 N MONOCYTE % (test code = MO%) 9.3 % 0.0-10.0 N EOSINOPHIL % (test code = EO%) 6.2 % 0.0-5.0 H BASOPHIL % (test code = BA%) 0.3 % 0.0-1.0 N NEUTROPHIL # (test code = NT#) 3.66 K/mm3 1.8-7.7 N LYMPHOCYTE # (test code = LY#) 1.77 K/mm3 1.0-5.0 N MONOCYTE # (test code = MO#) 0.60 K/mm3 0-0.8 N EOSINOPHIL # (test code = EO#) 0.40 K/mm3 0.0-0.5 N BASOPHIL # (test code = BA#) 0.02 K/mm3 0.0-0.2 N MANUAL DIFF REQUIRED (test code = MDIFF) NO, ONLY SCAN NEEDED DIFFERENTIAL [id number] 19:26:00* Test Item Value Reference Range Interpretation Comments STAIN ACCEPTABILITY (test code = STN ACCEPTABLE) CABOT RINGS (test code = CAB) MORPHOLOGY COMMENT (test code = MOC) PLATELET ESTIMATE (test code = PLTEST) PLATELET MORPHOLOGY (test code = PLTMORPH) CBC W/AUTO [id number] 19:26:00* Test Item Value Reference Range Interpretation Comments WHITE BLOOD CELL (test code = WBC) 6.5 K/mm3 4.5-12.5 N RED BLOOD CELL (test code = RBC) 3.81 mill/mm3 4.0-5.8 L HEMOGLOBIN (test code = HGB) 13.6 gram/dL 13.0-17.5 N HEMATOCRIT (test code = HCT) 39.3 % 42.0-52.0 L MEAN CELL VOLUME (test code = MCV) 103.1 fL 80-98 H MEAN CELL HGB (test code = MCH) 35.7 picogram 27.0-33.0 H MEAN CELL HGB CONCETRATION (test code = MCHC) 34.6 gram/dL 33.0-36. 0 N RED CELL DISTRIBUTION WIDTH (test code = RDW) 13.4 % 11.6-16. 2 N RED CELL DISTRIBUTION WIDTH SD (test code = RDW-SD) 50.2 fL 39 .2-49.5 H PLATELET COUNT (test code = PLT) 196 K/mm3 150-450 N MEAN PLATELET VOLUME (test code = MPV) 10.9 fL 6.7-11.0 N NEUTROPHIL % (test code = NT%) 56.8 % 39.0-69.0 N LYMPHOCYTE % (test code = LY%) 27.4 % 25.0-55.0 N MONOCYTE % (test code = MO%) 9.3 % 0.0-10.0 N EOSINOPHIL % (test code = EO%) 6.2 % 0.0-5.0 H BASOPHIL % (test code = BA%) 0.3 % 0.0-1.0 N NEUTROPHIL # (test code = NT#) 3.66 K/mm3 1.8-7.7 N LYMPHOCYTE # (test code = LY#) 1.77 K/mm3 1.0-5.0 N MONOCYTE # (test code = MO#) 0.60 K/mm3 0-0.8 N EOSINOPHIL # (test code = EO#) 0.40 K/mm3 0.0-0.5 N BASOPHIL # (test code = BA#) 0.02 K/mm3 0.0-0.2 N MANUAL DIFF REQUIRED (test code = MDIFF) NO, ONLY SCAN NEEDED DIFFERENTIAL [id number] 19:26:00* Test Item Value Reference Range Interpretation Comments STAIN ACCEPTABILITY (test code = STN ACCEPTABLE) MORPHOLOGY COMMENT (test code = MOC) PLATELET ESTIMATE (test code = PLTEST) PLATELET MORPHOLOGY (test code = PLTMORPH) CBC W/AUTO [id number] 19:25:00* Test Item Value Reference Range Interpretation Comments WHITE BLOOD CELL (test code = WBC) 6.5 K/mm3 4.5-12.5 N RED BLOOD CELL (test code = RBC) 3.81 mill/mm3 4.0-5.8 L HEMOGLOBIN (test code = HGB) 13.6 gram/dL 13.0-17.5 N HEMATOCRIT (test code = HCT) 39.3 % 42.0-52.0 L MEAN CELL VOLUME (test code = MCV) 103.1 fL 80-98 H MEAN CELL HGB (test code = MCH) 35.7 picogram 27.0-33.0 H MEAN CELL HGB CONCETRATION (test code = MCHC) 34.6 gram/dL 33.0-36. 0 N RED CELL DISTRIBUTION WIDTH (test code = RDW) 13.4 % 11.6-16. 2 N RED CELL DISTRIBUTION WIDTH SD (test code = RDW-SD) 50.2 fL 39 .2-49.5 H PLATELET COUNT (test code = PLT) 196 K/mm3 150-450 N MEAN PLATELET VOLUME (test code = MPV) 10.9 fL 6.7-11.0 N NEUTROPHIL % (test code = NT%) 56.8 % 39.0-69.0 N LYMPHOCYTE % (test code = LY%) 27.4 % 25.0-55.0 N MONOCYTE % (test code = MO%) 9.3 % 0.0-10.0 N EOSINOPHIL % (test code = EO%) 6.2 % 0.0-5.0 H BASOPHIL % (test code = BA%) 0.3 % 0.0-1.0 N NEUTROPHIL # (test code = NT#) 3.66 K/mm3 1.8-7.7 N LYMPHOCYTE # (test code = LY#) 1.77 K/mm3 1.0-5.0 N MONOCYTE # (test code = MO#) 0.60 K/mm3 0-0.8 N EOSINOPHIL # (test code = EO#) 0.40 K/mm3 0.0-0.5 N BASOPHIL # (test code = BA#) 0.02 K/mm3 0.0-0.2 N MANUAL DIFF REQUIRED (test code = MDIFF) NO, ONLY SCAN NEEDED DIFFERENTIAL [id number] 19:25:00* Test Item Value Reference Range Interpretation Comments STAIN ACCEPTABILITY (test code = STN ACCEPTABLE) CABOT RINGS (test code = CAB) MORPHOLOGY COMMENT (test code = MOC) PLATELET ESTIMATE (test code = PLTEST) PLATELET MORPHOLOGY (test code = PLTMORPH) CBC W/AUTO [id number] 19:25:00* Test Item Value Reference Range Interpretation Comments WHITE BLOOD CELL (test code = WBC) 6.5 K/mm3 4.5-12.5 N RED BLOOD CELL (test code = RBC) 3.81 mill/mm3 4.0-5.8 L HEMOGLOBIN (test code = HGB) 13.6 gram/dL 13.0-17.5 N HEMATOCRIT (test code = HCT) 39.3 % 42.0-52.0 L MEAN CELL VOLUME (test code = MCV) 103.1 fL 80-98 H MEAN CELL HGB (test code = MCH) 35.7 picogram 27.0-33.0 H MEAN CELL HGB CONCETRATION (test code = MCHC) 34.6 gram/dL 33.0-36. 0 N RED CELL DISTRIBUTION WIDTH (test code = RDW) 13.4 % 11.6-16. 2 N RED CELL DISTRIBUTION WIDTH SD (test code = RDW-SD) 50.2 fL 39 .2-49.5 H PLATELET COUNT (test code = PLT) 196 K/mm3 150-450 N MEAN PLATELET VOLUME (test code = MPV) 10.9 fL 6.7-11.0 N NEUTROPHIL % (test code = NT%) 56.8 % 39.0-69.0 N LYMPHOCYTE % (test code = LY%) 27.4 % 25.0-55.0 N MONOCYTE % (test code = MO%) 9.3 % 0.0-10.0 N EOSINOPHIL % (test code = EO%) 6.2 % 0.0-5.0 H BASOPHIL % (test code = BA%) 0.3 % 0.0-1.0 N NEUTROPHIL # (test code = NT#) 3.66 K/mm3 1.8-7.7 N LYMPHOCYTE # (test code = LY#) 1.77 K/mm3 1.0-5.0 N MONOCYTE # (test code = MO#) 0.60 K/mm3 0-0.8 N EOSINOPHIL # (test code = EO#) 0.40 K/mm3 0.0-0.5 N BASOPHIL # (test code = BA#) 0.02 K/mm3 0.0-0.2 N MANUAL DIFF REQUIRED (test code = MDIFF) NO, ONLY SCAN NEEDED DIFFERENTIAL [id number] 19:25:00* Test Item Value Reference Range Interpretation Comments STAIN ACCEPTABILITY (test code = STN ACCEPTABLE) CABOT RINGS (test code = CAB) MORPHOLOGY COMMENT (test code = MOC) PLATELET ESTIMATE (test code = PLTEST) PLATELET MORPHOLOGY (test code = PLTMORPH) COMPREHENSIVE METABOLIC [id number] 19:24:00* Test Item Value Reference Range Interpretation Comments SODIUM (test code = NA) 143 mmol/L 135-148 N POTASSIUM (test code = K) 3.7 mmol/L 3.5-5.1 N CHLORIDE (test code = CL) 107 mmol/L 101-109 N CARBON DIOXIDE (test code = CO2) 27.8 mmol/L 21-32 N ANION GAP (test code = GAP) 12 mmol/L 10-20 N GLUCOSE (test code = GLU) 119 mg/dL 74-106 H BLOOD UREA NITROGEN (test code = BUN) 16 mg/dL 3-21 N CREATININE (test code = CREAT) 1.29 mg/dL 0.55-1.3 N BUN/CREATININE RATIO (test code = BUN/CREA) 12.4 10-20 N TOTAL PROTEIN (test code = PROT) 7.6 g/dL 6.5-8.4 N ALBUMIN (test code = ALB) 3.1 g/dL 3.4-4.8 L GLOBULIN (test code = GLOB) 4.5 G/DL 1-10 N ALBUMIN/GLOBULIN RATIO (test code = A/G) 0.7 RATIO 0.75-1.50 L CALCIUM (test code = CA) 8.9 mg/dL 8.4-10.2 N BILIRUBIN TOTAL (test code = BILT) 0.30 mg/dL 0.0-1.0 N SGOT/AST (test code = AST) 21 U/L 6-32 N SGPT/ALT (test code = ALT) 13 U/L 12-78 N N ote: Change in REFERENCE RANGE due to new reagent method. ALKALINE PHOSPHATASE TOTAL (test code = ALKP) 176 U/L 38-126 H [id number] 19:24:00* Test Item Value Reference Range Interpretation Comments MAGNESIUM (test code = MAG) 2.0 mg/dL 1.6-2.3 N CPK-MB [id number] 19:24:00* Test Item Value Reference Range Interpretation Comments CREATINE KINASE (CK) (test code = CK) 73 U/L 39-308 N CKMB (test code = CKMBT) 0.9 ng/mL 0.0-5.0 N RELATIVE % INDEX (test code = REL%) 1.2 % [id number] 19:24:00* Test Item Value Reference Range Interpretation Comments TROPONIN-I (test code = TROPI) <0.015 ng/mL 0.00-0.056 N [id number] 19:20:00* Test Item Value Reference Range Interpretation Comments D-DIMER (test code = DDIMER) 755 ng/ml < 600 HH Results called to WADE by V.[email or web address] 01/29/191918Critical results verified and read back by Nurse? Y B-TYPE NATRIURETIC [id number] 19:16:00* Test Item Value Reference Range Interpretation Comments B-TYPE NATRIURETIC PEPTIDE (test code = BNP) 35.4 pg/mL 0-100 N LACTIC [id number] 19:14:00* Test Item Value Reference Range Interpretation Comments LACTIC ACID (test code = LACT) 1.6 MMOL/L 0.4-1.9 N COMPREHENSIVE METABOLIC [id number] 19:08:00* Test Item Value Reference Range Interpretation Comments SODIUM (test code = NA) 143 mmol/L 135-148 N POTASSIUM (test code = K) 3.7 mmol/L 3.5-5.1 N CHLORIDE (test code = CL) 107 mmol/L 101-109 N CARBON DIOXIDE (test code = CO2) 27.8 mmol/L 21-32 N ANION GAP (test code = GAP) 12 mmol/L 10-20 N GLUCOSE (test code = GLU) 119 mg/dL 74-106 H BLOOD UREA NITROGEN (test code = BUN) 16 mg/dL 3-21 N CREATININE (test code = CREAT) 1.29 mg/dL 0.55-1.3 N BUN/CREATININE RATIO (test code = BUN/CREA) 12.4 10-20 N TOTAL PROTEIN (test code = PROT) gram/dL 6.4-8.2 ALBUMIN (test code = ALB) g/dL 3.4-5.0 GLOBULIN (test code = GLOB) g/dL 2.7-4.2 ALBUMIN/GLOBULIN RATIO (test code = A/G) 0.75-1.50 CALCIUM (test code = CA) 8.9 mg/dL 8.4-10.2 N BILIRUBIN TOTAL (test code = BILT) mg/dL 0.2-1.2 SGOT/AST (test code = AST) IUnit/L 15-37 SGPT/ALT (test code = ALT) U/L 10-69 ALKALINE PHOSPHATASE TOTAL (test code = ALKP) IUnit/L 45-117 [id number] 19:08:00* Test Item Value Reference Range Interpretation Comments MAGNESIUM (test code = MAG) mg/dL 1.8-2.4 CPK-MB [id number] 19:08:00* Test Item Value Reference Range Interpretation Comments CREATINE KINASE (CK) (test code = CK) IUnit/L 26-208 CKMB (test code = CKMBT) ng/mL 0-6.0 RELATIVE % INDEX (test code = REL%) % [id number] 19:08:00* Test Item Value Reference Range Interpretation Comments TROPONIN-I (test code = TROPI) ng/mL 0-0.045 URINALYSIS [id number] 19:50:00* Test Item Value Reference Range Interpretation Comments UA COLOR (test code = COLU) LIGHT YELLOW YELLOW UA APPEARANCE (test code = APPU) CLEAR CLEAR UA GLUCOSE DIPSTICK (test code = DGLUU) NORMAL mg/dL NEGATIVE UA BILIRUBIN DIPSTICK (test code = BILU) NEGATIVE mg/dL NEGATIVE UA KETONE DIPSTICK (test code = KETU) neg mg/dL NEGATIVE UA SPECIFIC GRAVITY (test code = SGU) 1.010 1.001-1.035 UA BLOOD DIPSTICK (test code = DELMIS) neg Amadou/uL NEGATIVE UA PH DIPSTICK (test code = ARIES) 6.0 5.0-8.0 UA PROTEIN DIPSTICK (test code = PROU) neg mg/dL Neg-15 UA UROBILINIOGEN DIPSTICK (test code = URO) norm mg/dL 0.0-0.2 UA NITRITE DIPSTICK (test code = ROMARIO) NEGATIVE NEGATIVE UA LEUKOCYTE ESTERASE DIPSTICK (test code = LEUU) NEGATIVE uL NEGA TIVE UA WBC (test code = WBCU) NONE SEEN per HPF 0-5 IN SOME URINARY TRACT INFECTIONS THERE MAY NOT BE ENOUGHWBCs IN THE URINE TO TRIGGER AN AUTOMATIC (REFLEX) URINECULTURE. A SEPERATE ORDER FOR URINE CULTURE IS RECOMMENDEDIF THERE IS STRONG SUPPORT FOR A URINARY TRACT INFECTIONCLINICALLY. UA RBC (test code = RBCU) NONE SEEN per HPF 0-5 UA EPITHELIAL CELLS (test code = EPIU) Rare (0-1/hpf) per HPF Few UA BACTERIA (test code = BACU) FEW per HPF NONE Urine Source? Clean CatchURINALYSIS [id number] 19:45:00* Test Item Value Reference Range Interpretation Comments UA COLOR (test code = COLU) LIGHT YELLOW YELLOW UA APPEARANCE (test code = APPU) CLEAR CLEAR UA GLUCOSE DIPSTICK (test code = DGLUU) NORMAL mg/dL NEGATIVE UA BILIRUBIN DIPSTICK (test code = BILU) NEGATIVE mg/dL NEGATIVE UA KETONE DIPSTICK (test code = KETU) neg mg/dL NEGATIVE UA SPECIFIC GRAVITY (test code = SGU) 1.010 1.001-1.035 UA BLOOD DIPSTICK (test code = DELMIS) neg Amadou/uL NEGATIVE UA PH DIPSTICK (test code = ARIES) 6.0 5.0-8.0 UA PROTEIN DIPSTICK (test code = PROU) neg mg/dL Neg-15 UA UROBILINIOGEN DIPSTICK (test code = URO) norm mg/dL 0.0-0.2 UA NITRITE DIPSTICK (test code = ROMARIO) NEGATIVE NEGATIVE UA LEUKOCYTE ESTERASE DIPSTICK (test code = LEUU) NEGATIVE uL NEGA TIVE UA WBC (test code = WBCU) per HPF 0-5 Urine Source? Clean CatchCBC W/AUTO [id number] 18:17:00* Test Item Value Reference Range Interpretation Comments WHITE BLOOD CELL (test code = WBC) 7.1 K/mm3 4.5-12.5 N RED BLOOD CELL (test code = RBC) 3.87 mill/mm3 4.0-5.8 L HEMOGLOBIN (test code = HGB) 13.6 gram/dL 13.0-17.5 N HEMATOCRIT (test code = HCT) 40.1 % 42.0-52.0 L MEAN CELL VOLUME (test code = MCV) 103.6 fL 80-98 H MEAN CELL HGB (test code = MCH) 35.1 picogram 27.0-33.0 H MEAN CELL HGB CONCETRATION (test code = MCHC) 33.9 gram/dL 33.0-36. 0 N RED CELL DISTRIBUTION WIDTH (test code = RDW) 13.1 % 11.6-16. 2 N RED CELL DISTRIBUTION WIDTH SD (test code = RDW-SD) 48.2 fL 39 .2-49.5 N PLATELET COUNT (test code = PLT) 192 K/mm3 150-450 N MEAN PLATELET VOLUME (test code = MPV) 10.6 fL 6.7-11.0 N NEUTROPHIL % (test code = NT%) 57.1 % 39.0-69.0 N LYMPHOCYTE % (test code = LY%) 30.3 % 25.0-55.0 N MONOCYTE % (test code = MO%) 7.9 % 0.0-10.0 N EOSINOPHIL % (test code = EO%) 4.6 % 0.0-5.0 N BASOPHIL % (test code = BA%) 0.1 % 0.0-1.0 N NEUTROPHIL # (test code = NT#) 4.06 K/mm3 1.8-7.7 N LYMPHOCYTE # (test code = LY#) 2.16 K/mm3 1.0-5.0 N MONOCYTE # (test code = MO#) 0.56 K/mm3 0-0.8 N EOSINOPHIL # (test code = EO#) 0.33 K/mm3 0.0-0.5 N BASOPHIL # (test code = BA#) 0.01 K/mm3 0.0-0.2 N MANUAL DIFF REQUIRED (test code = MDIFF) NO, ONLY SCAN NEEDED DIFFERENTIAL [id number] 18:17:00* Test Item Value Reference Range Interpretation Comments STAIN ACCEPTABILITY (test code = STN ACCEPTABLE) STAIN ACCEPTABLE MORPHOLOGY COMMENT (test code = MOC) NORMAL PLATELET ESTIMATE (test code = PLTEST) ADEQUATE PLATELET MORPHOLOGY (test code = PLTMORPH) NORMAL - XR CHEST 1 [id number] 17:54:00 Name: ONEIL ACHARYA [facility] : 1935 Age/S:83 /M [address] [place] [address] Unit#:[id number] Loc: [place] [address] Phys: Citlali Ahuja MD Dis Date: PHONE #: [phone] Status: REG ER FAX #: [phone] Exam Date: 01/25/2019 Reason: SHORTNESS OF BREATH COUGH, VOMITING EXAMS: CPT CODE: [id number] XR CHEST 1 V [id number] EXAM: Chest X-ray, 1 view; CLINICAL HISTORY: Shortness of breath, cough; FINDINGS: The lungs are clear, no infiltrates, no edema; no effusions; no pneumothorax; normal cardiomediastinal silhouette. IMPRESSION: Normal chest x-ray. at 1754 Reported and signed by: Hayder Moffett M.D. CC: Citlali Ahuja MD Technologist: ELIZA LOVE, RT(R),CT Trnscrpt Data: 01/25/2019 (405) [email or web address] Orig Print D/T: S: 01/25/2019 (9254) PAGE 1 Signed Report - XR CHEST 1 [id number] 17:54:00 Name: ONEIL ACHARYA [facility] : 1935 Age/S:83 /M [address] [place] [address] Unit#:[id number] Loc: [place] [address] Phys: Citlali Ahuja MD Dis Date: PHONE #: [phone] Status: DEP ER FAX #: [phone] Exam Date: 01/25/2019 Reason: SHORTNESS OF BREATH COUGH, VOMITING EXAMS: CPT CODE: [id number] XR CHEST 1 V [id number] EXAM: Chest X-ray, 1 view; CLINICAL HISTORY: Shortness of breath, cough; FINDINGS: The lungs are clear, no infiltrates, no edema; no effusions; no pneumothorax; normal cardiomediastinal silhouette. IMPRESSION: Normal chest x-ray. at 1754 Reported and signed by: Hayder Moffett M.D. CC: Citlali Ahuja MD Technologist: ELIZA LOVE, RT(R),CT Trnscrpt Data: 01/25/2019 (5144) [email or web address] Orig Print D/T: S: 01/25/2019 (6730) PAGE 1 Signed Report COMPREHENSIVE METABOLIC [id number] 17:51:00* Test Item Value Reference Range Interpretation Comments SODIUM (test code = NA) 144 mmol/L 135-148 N POTASSIUM (test code = K) 3.9 mmol/L 3.5-5.1 N CHLORIDE (test code = CL) 109 mmol/L 101-109 N CARBON DIOXIDE (test code = CO2) 28.4 mmol/L 21-32 N ANION GAP (test code = GAP) 11 mmol/L 10-20 N GLUCOSE (test code = GLU) 94 mg/dL 74-106 N BLOOD UREA NITROGEN (test code = BUN) 18 mg/dL 3-21 N CREATININE (test code = CREAT) 1.09 mg/dL 0.55-1.3 N BUN/CREATININE RATIO (test code = BUN/CREA) 16.5 10-20 N TOTAL PROTEIN (test code = PROT) 7.4 g/dL 6.5-8.4 N ALBUMIN (test code = ALB) 3.1 g/dL 3.4-4.8 L GLOBULIN (test code = GLOB) 4.3 G/DL 1-10 N ALBUMIN/GLOBULIN RATIO (test code = A/G) 0.7 RATIO 0.75-1.50 L CALCIUM (test code = CA) 9.0 mg/dL 8.4-10.2 N BILIRUBIN TOTAL (test code = BILT) 0.30 mg/dL 0.0-1.0 N SGOT/AST (test code = AST) 13 U/L 6-32 N SGPT/ALT (test code = ALT) 11 U/L 12-78 L N ote: Change in REFERENCE RANGE due to new reagent method. ALKALINE PHOSPHATASE TOTAL (test code = ALKP) 174 U/L 38-126 H COMPREHENSIVE METABOLIC [id number] 17:45:00* Test Item Value Reference Range Interpretation Comments SODIUM (test code = NA) 144 mmol/L 135-148 N POTASSIUM (test code = K) 3.9 mmol/L 3.5-5.1 N CHLORIDE (test code = CL) 109 mmol/L 101-109 N CARBON DIOXIDE (test code = CO2) 28.4 mmol/L 21-32 N ANION GAP (test code = GAP) 11 mmol/L 10-20 N GLUCOSE (test code = GLU) 94 mg/dL 74-106 N BLOOD UREA NITROGEN (test code = BUN) 18 mg/dL 3-21 N CREATININE (test code = CREAT) 1.09 mg/dL 0.55-1.3 N BUN/CREATININE RATIO (test code = BUN/CREA) 16.5 10-20 N TOTAL PROTEIN (test code = PROT) gram/dL 6.4-8.2 ALBUMIN (test code = ALB) g/dL 3.4-5.0 GLOBULIN (test code = GLOB) g/dL 2.7-4.2 ALBUMIN/GLOBULIN RATIO (test code = A/G) 0.75-1.50 CALCIUM (test code = CA) 9.0 mg/dL 8.4-10.2 N BILIRUBIN TOTAL (test code = BILT) mg/dL 0.2-1.2 SGOT/AST (test code = AST) IUnit/L 15-37 SGPT/ALT (test code = ALT) U/L 10-69 ALKALINE PHOSPHATASE TOTAL (test code = ALKP) IUnit/L 45-117 CBC W/AUTO [id number] 17:37:00* Test Item Value Reference Range Interpretation Comments WHITE BLOOD CELL (test code = WBC) 7.1 K/mm3 4.5-12.5 N RED BLOOD CELL (test code = RBC) 3.87 mill/mm3 4.0-5.8 L HEMOGLOBIN (test code = HGB) 13.6 gram/dL 13.0-17.5 N HEMATOCRIT (test code = HCT) 40.1 % 42.0-52.0 L MEAN CELL VOLUME (test code = MCV) 103.6 fL 80-98 H MEAN CELL HGB (test code = MCH) 35.1 picogram 27.0-33.0 H MEAN CELL HGB CONCETRATION (test code = MCHC) 33.9 gram/dL 33.0-36. 0 N RED CELL DISTRIBUTION WIDTH (test code = RDW) 13.1 % 11.6-16. 2 N RED CELL DISTRIBUTION WIDTH SD (test code = RDW-SD) 48.2 fL 39 .2-49.5 N PLATELET COUNT (test code = PLT) 192 K/mm3 150-450 N MEAN PLATELET VOLUME (test code = MPV) 10.6 fL 6.7-11.0 N NEUTROPHIL % (test code = NT%) 57.1 % 39.0-69.0 N LYMPHOCYTE % (test code = LY%) 30.3 % 25.0-55.0 N MONOCYTE % (test code = MO%) 7.9 % 0.0-10.0 N EOSINOPHIL % (test code = EO%) 4.6 % 0.0-5.0 N BASOPHIL % (test code = BA%) 0.1 % 0.0-1.0 N NEUTROPHIL # (test code = NT#) 4.06 K/mm3 1.8-7.7 N LYMPHOCYTE # (test code = LY#) 2.16 K/mm3 1.0-5.0 N MONOCYTE # (test code = MO#) 0.56 K/mm3 0-0.8 N EOSINOPHIL # (test code = EO#) 0.33 K/mm3 0.0-0.5 N BASOPHIL # (test code = BA#) 0.01 K/mm3 0.0-0.2 N MANUAL DIFF REQUIRED (test code = MDIFF) NO, ONLY SCAN NEEDED DIFFERENTIAL [id number] 17:37:00* Test Item Value Reference Range Interpretation Comments STAIN ACCEPTABILITY (test code = STN ACCEPTABLE) CABOT RINGS (test code = CAB) MORPHOLOGY COMMENT (test code = MOC) PLATELET ESTIMATE (test code = PLTEST) PLATELET MORPHOLOGY (test code = PLTMORPH) CBC W/AUTO [id number] 17:37:00* Test Item Value Reference Range Interpretation Comments WHITE BLOOD CELL (test code = WBC) 7.1 K/mm3 4.5-12.5 N RED BLOOD CELL (test code = RBC) 3.87 mill/mm3 4.0-5.8 L HEMOGLOBIN (test code = HGB) 13.6 gram/dL 13.0-17.5 N HEMATOCRIT (test code = HCT) 40.1 % 42.0-52.0 L MEAN CELL VOLUME (test code = MCV) 103.6 fL 80-98 H MEAN CELL HGB (test code = MCH) 35.1 picogram 27.0-33.0 H MEAN CELL HGB CONCETRATION (test code = MCHC) 33.9 gram/dL 33.0-36. 0 N RED CELL DISTRIBUTION WIDTH (test code = RDW) 13.1 % 11.6-16. 2 N RED CELL DISTRIBUTION WIDTH SD (test code = RDW-SD) 48.2 fL 39 .2-49.5 N PLATELET COUNT (test code = PLT) 192 K/mm3 150-450 N MEAN PLATELET VOLUME (test code = MPV) 10.6 fL 6.7-11.0 N NEUTROPHIL % (test code = NT%) 57.1 % 39.0-69.0 N LYMPHOCYTE % (test code = LY%) 30.3 % 25.0-55.0 N MONOCYTE % (test code = MO%) 7.9 % 0.0-10.0 N EOSINOPHIL % (test code = EO%) 4.6 % 0.0-5.0 N BASOPHIL % (test code = BA%) 0.1 % 0.0-1.0 N NEUTROPHIL # (test code = NT#) 4.06 K/mm3 1.8-7.7 N LYMPHOCYTE # (test code = LY#) 2.16 K/mm3 1.0-5.0 N MONOCYTE # (test code = MO#) 0.56 K/mm3 0-0.8 N EOSINOPHIL # (test code = EO#) 0.33 K/mm3 0.0-0.5 N BASOPHIL # (test code = BA#) 0.01 K/mm3 0.0-0.2 N MANUAL DIFF REQUIRED (test code = MDIFF) NO, ONLY SCAN NEEDED DIFFERENTIAL [id number] 17:37:00* Test Item Value Reference Range Interpretation Comments STAIN ACCEPTABILITY (test code = STN ACCEPTABLE) CABOT RINGS (test code = CAB) MORPHOLOGY COMMENT (test code = MOC) PLATELET ESTIMATE (test code = PLTEST) PLATELET MORPHOLOGY (test code = PLTMORPH) CBC W/AUTO [id number] 17:37:00* Test Item Value Reference Range Interpretation Comments WHITE BLOOD CELL (test code = WBC) 7.1 K/mm3 4.5-12.5 N RED BLOOD CELL (test code = RBC) 3.87 mill/mm3 4.0-5.8 L HEMOGLOBIN (test code = HGB) 13.6 gram/dL 13.0-17.5 N HEMATOCRIT (test code = HCT) 40.1 % 42.0-52.0 L MEAN CELL VOLUME (test code = MCV) 103.6 fL 80-98 H MEAN CELL HGB (test code = MCH) 35.1 picogram 27.0-33.0 H MEAN CELL HGB CONCETRATION (test code = MCHC) 33.9 gram/dL 33.0-36. 0 N RED CELL DISTRIBUTION WIDTH (test code = RDW) 13.1 % 11.6-16. 2 N RED CELL DISTRIBUTION WIDTH SD (test code = RDW-SD) 48.2 fL 39 .2-49.5 N PLATELET COUNT (test code = PLT) 192 K/mm3 150-450 N MEAN PLATELET VOLUME (test code = MPV) 10.6 fL 6.7-11.0 N NEUTROPHIL % (test code = NT%) 57.1 % 39.0-69.0 N LYMPHOCYTE % (test code = LY%) 30.3 % 25.0-55.0 N MONOCYTE % (test code = MO%) 7.9 % 0.0-10.0 N EOSINOPHIL % (test code = EO%) 4.6 % 0.0-5.0 N BASOPHIL % (test code = BA%) 0.1 % 0.0-1.0 N NEUTROPHIL # (test code = NT#) 4.06 K/mm3 1.8-7.7 N LYMPHOCYTE # (test code = LY#) 2.16 K/mm3 1.0-5.0 N MONOCYTE # (test code = MO#) 0.56 K/mm3 0-0.8 N EOSINOPHIL # (test code = EO#) 0.33 K/mm3 0.0-0.5 N BASOPHIL # (test code = BA#) 0.01 K/mm3 0.0-0.2 N MANUAL DIFF REQUIRED (test code = MDIFF) NO, ONLY SCAN NEEDED DIFFERENTIAL [id number] 17:37:00* Test Item Value Reference Range Interpretation Comments STAIN ACCEPTABILITY (test code = STN ACCEPTABLE) MORPHOLOGY COMMENT (test code = MOC) PLATELET ESTIMATE (test code = PLTEST) PLATELET MORPHOLOGY (test code = PLTMORPH) CBC W/AUTO [id number] 17:37:00* Test Item Value Reference Range Interpretation Comments WHITE BLOOD CELL (test code = WBC) 7.1 K/mm3 4.5-12.5 N RED BLOOD CELL (test code = RBC) 3.87 mill/mm3 4.0-5.8 L HEMOGLOBIN (test code = HGB) 13.6 gram/dL 13.0-17.5 N HEMATOCRIT (test code = HCT) 40.1 % 42.0-52.0 L MEAN CELL VOLUME (test code = MCV) 103.6 fL 80-98 H MEAN CELL HGB (test code = MCH) 35.1 picogram 27.0-33.0 H MEAN CELL HGB CONCETRATION (test code = MCHC) 33.9 gram/dL 33.0-36. 0 N RED CELL DISTRIBUTION WIDTH (test code = RDW) 13.1 % 11.6-16. 2 N RED CELL DISTRIBUTION WIDTH SD (test code = RDW-SD) 48.2 fL 39 .2-49.5 N PLATELET COUNT (test code = PLT) 192 K/mm3 150-450 N MEAN PLATELET VOLUME (test code = MPV) 10.6 fL 6.7-11.0 N NEUTROPHIL % (test code = NT%) 57.1 % 39.0-69.0 N LYMPHOCYTE % (test code = LY%) 30.3 % 25.0-55.0 N MONOCYTE % (test code = MO%) 7.9 % 0.0-10.0 N EOSINOPHIL % (test code = EO%) 4.6 % 0.0-5.0 N BASOPHIL % (test code = BA%) 0.1 % 0.0-1.0 N NEUTROPHIL # (test code = NT#) 4.06 K/mm3 1.8-7.7 N LYMPHOCYTE # (test code = LY#) 2.16 K/mm3 1.0-5.0 N MONOCYTE # (test code = MO#) 0.56 K/mm3 0-0.8 N EOSINOPHIL # (test code = EO#) 0.33 K/mm3 0.0-0.5 N BASOPHIL # (test code = BA#) 0.01 K/mm3 0.0-0.2 N MANUAL DIFF REQUIRED (test code = MDIFF) NO, ONLY SCAN NEEDED DIFFERENTIAL [id number] 17:37:00* Test Item Value Reference Range Interpretation Comments STAIN ACCEPTABILITY (test code = STN ACCEPTABLE) CABOT RINGS (test code = CAB) MORPHOLOGY COMMENT (test code = MOC) PLATELET ESTIMATE (test code = PLTEST) PLATELET MORPHOLOGY (test code = PLTMORPH)
--- NOTE | 2020-07-03 22:35 | Diagnostic Imaging Report ---
ADDENDUM #1 Correction: Please dismiss " it is difficult to discern from the atrophic uterus/vaginal cuff (if history of hysterectomy)." The patient is male. The prostate is enlarged. The described dominant mass is contiguous with the prostate gland. 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 Signed by: Jose Madsen MD on 07/03/2020 10:50 PM ORIGINAL REPORT EXAM: CT Abdomen and Pelvis WITHOUT contrast INDICATION: s/p fall yesterday COMPARISON: CT chest dated 12/13/2019. 02/05/2019.. TECHNIQUE: Abdomen and pelvis were scanned utilizing a multidetector helical scanner from the lung base to the pubic symphysis without administration of IV contrast. Absence of intravenous contrast decreases sensitivity for detection of focal lesions and vascular pathology. Coronal and sagittal reformations were obtained. Routine protocol was performed. IV CONTRAST: None ORAL CONTRAST: None COMPLICATIONS: None RADIATION DOSE: Total DLP: 540.69 mGy*cm Estimated effective dose: (DLP x 0.015 x size factor) mSv CTDIvol has been reviewed. It is below the limits set by the Radiation Protocol Committee (RPC). Dose modulation, iterative reconstruction, and/or weight based adjustment of the mA/kV was utilized to reduce the radiation dose to as low as reasonably achievable. FINDINGS: LINES and TUBES: None. LOWER THORAX: 2.1 cm nodular opacity in the left upper lobe, similar to prior, but increased in size from 02/05/2019 when it measured 1.1 cm. Multiple additional scattered subcentimeter nodular opacities are no significant change. Trace right pleural effusion.. HEPATOBILIARY: No focal hepatic lesions. No biliary ductal dilation. GALLBLADDER: There are cholecystectomy clips. No wall thickening. SPLEEN: No splenomegaly. PANCREAS: No focal masses or ductal dilatation. ADRENALS: No adrenal nodules KIDNEYS/URETERS: Marked left hydroureteronephrosis. Atrophy of the left renal parenchyma, likely representing a chronic process. GI TRACT: No abnormal distention, wall thickening, or evidence of bowel obstruction. Appendix is normal. PELVIC ORGANS/BLADDER: Ill-defined approximately 5.3 cm perirectal mass, best seen on coronal imaging, that abuts the distal ureter. This appears separate from the atrophic uterus or vaginal cuff if patient has had hysterectomy. Soft tissue extends posteriorly and abuts the sacrum. L4 vertebral body through the coccyx demonstrates hazy mid to possible cortical erosion of the left medial sacrum concerning for metastatic disease. Urinary bladder is distended. LYMPH NODES: 4.2 x 3.9 cm solid lobulated soft tissue mass along the left external iliac chain VESSELS: Unremarkable. PERITONEUM / RETROPERITONEUM: No free air or fluid. BONES: Unremarkable. IMPRESSION: 1. Findings are concerning for pelvic masses which result in obstruction of the distal left ureter resulting in left hydroureteronephrosis that appears chronic as there is marked cortical atrophy. Masses are not well assessed on noncontrast exam and it is difficult to discern from the atrophic uterus/vaginal cuff (if history of hysterectomy). Mottled density of the L4 vertebral body through the coccyx may represent osseous metastases. Lobulated mass along the external iliac chain measuring 4.2 cm may represent lela metastases. Uncertain primary. Consider nonemergent outpatient pelvic MRI for better characterization versus soft tissue sampling. 2. Enlarging 2.1 cm nodular opacity in the left upper lobe. Additional smaller pulmonary nodules appear stable. While this could represent infectious/inflammatory process, the interval enlargement from 2019 is concerning for malignancy. Consider soft tissue sampling versus PET/CT. 3. Distended urinary bladder. Correlate for bladder outlet obstruction. 4. No acute posttraumatic sequelae of the abdomen and pelvis. Signed by: Jose Madsen MD on 07/03/2020 10:31 PM
[2020-07-03] MEDS ORDERED: ONDANSETRON HCL INJ 2MG/ML 2ML 2 MG/ML VIAL IV PRN (22:45)
--- OUTSIDE RECORDS SUMMARY | 2020-07-03 23:51 | XMS REPORT | Clinical Summary ---
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
--- OUTSIDE RECORDS SUMMARY | 2020-07-03 23:52 | XMS REPORT | Continuity of Care Document ---
Author Author [facility] t Organization [facility] Address [address] [place] [address] Phone Unavailable Care Team Providers Care Delivery Director Name Role Phone NONSTAFF PCP Unavailable Fina ESPINOZA Attphys Unavailable Yusuf PAUL Attphys Unavailable Nellie FREED Attphys Unavailable Esteban RUTHERFORD Admphys Unavailable Payers Payer Name Policy Type Policy Number Effective Date Expiration Date [facility]all [facility] [id number] 2019 00:00:00 [facility] [employer] Medicare Complete [id number] 2018 00:00:00 [facility] Problems Condition Name Condition Details Condition Category [...] B12 deficiency Disease Active 2017-10-15 00:00:00 Eyad lainez Benign prostatic hyperplasia with incomplete bladder e mptying Benign prostatic hyperplasia with incomplete bladder emptying Disease Active 201 05-17-07 00:00:00 Eyad terrazas Tinea corporis Tinea corporis Disease Active 2017-10-12 00:00:00 Eyad Calhoun Impaired hearing Impaired hearing Disease Active 2017-10-12 00:00:00 Eyad Calhoun Allergic rhinitis due to allergen Allergic rhinitis due to aller gen Disease Active 2017-10-12 00:00:00 [place] Abnormal blood chemistry Abnormal blood chemistry Disease Acti ve 2017-10-12 00:00:[address] Rash Rash Disease Active 2017-10-12 00:00:00 Eyad Calhoun BMI 28.0-28.9,adult BMI 28.0-28.9,adult Disease Active 2017-10-12 00:00 :00 Eyad Calhoun Chronic left shoulder pain Chronic left shoulder pain Disease Active 2017-10-12 00:00:[address] Fall Problem Active [facility] Contusion Problem [facility] Active [facility] S t. [facility] Allergies, Adverse Reactions, Alerts Allergy Name Allergy Type Status Severity Reaction(s) Onset Date Inacti ve Date Treating Clinician Comments Source No Known Allergies DA Active U 2012-04-10 00:00:00 [facility] Social History Social Habit Start Date Stop Date Quantity Comments Source Sex Assigned At Val childress Unique Alcohol intake 2017-10-12 00:00:00 2017-10-12 00:00:00 Current [...] HOUR S NEEDED FOR COUGH Eyad Calhoun upfpuowijxdi-bylhfmpe-nwmhhi tablet 2017-10-12 00:00:00 Yes 1{tbl} QD Take [...] mcg total) by Each Nare route daily. Valbuddy Calhoun tamsulosin (FLOMAX) 0.4 mg capsule,extended release [...] Comments Source Weight 2020-05-20 12:19:00 183 [lb_av] [facility] BMI (Body Mass Index) 2020-05-20 12:19:00 27.8 kg/m2 [facility] Body Temperature 2019-12-14 01:24:00 98.1 [degF] [facility] Procedures Procedure Date / Time Performed Performing Clinician [facility] e X-ray of chest, two views 2019-12-13 00:00:00 LYNDSAY ESPINOZA [facility] Computed tomography of chest without contrast 2019-12-13 00: 00:00 LAURYN ESPINOZA [facility] Plan of Care Planned Activity Planned Date Details Comments Source Future Scheduled Test 2020-08-06 00:00:00 INFLUENZA VACCINE [code = INFLUENZA VACCINE] [facility] Future Scheduled Test 1998 00:00:00 65+ PNEUMOCOCCAL V ACCINE (1 of 2 - PCV13) [code = 65+ PNEUMOCOCCAL VACCINE (1 of 2 - PCV13)] [facility] Future Scheduled Test 1983 00:00:00 SHINGLES VACCINES (#1) [code = SHINGLES VACCINES (#1)] Eyad Calhoun Instructions Fall Prevention [facility] Encounters Start Date/Time End Date/Time Encounter Type Admission Type Attendi ng Clinicians Care Facility Care Department Encounter ID Source 2020-05-20 12:16:00 2020-05-20 14:00:00 Departed Emergency Room [address] [facility] [id number] [facility] 2019-12-13 18:48:00 2019-12-14 01:37:00 Departed Emergency Room [address] [facility] [id number] [facility] 2019-02-05 18:05:00 2019-02-05 22:33:00 Departed Emergency Room 1 FAVIOLA FREED [facility] [id number] [facility] Results Test Description Test Time Test Comments Results Result Comments Source CT ABDOMEN/PELVIS WO 2020-07-03 22:05:00 [facility] [address] [place] [address] Patient Name: ONEIL ACHARYA MR #: [id number] : 1935 Age/Sex: 85/M Req #: [id number] Adm Physician: Ordered by: LAURYN ESPINOZA MD Report #: [id number] Location: ER Room/Bed: Procedure: [id number] CT/CT ABDOMEN/PELVIS WO Exam Date: 07/03/20 Exam Time: 2100 REPORT STATUS: Signed ADDENDUM #1 Correction: Please dismiss " it is difficult to discern from the atrophic uterus/vaginal cuff (if history of hysterectomy)." The patient is male. The prostate is enlarged. The described dominant mass is contiguous with the prostate gland. 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 Signed by: Chanell Madsen MD on 07/03/2020 10:50 PM ORIGINAL REPORT EXAM: CT Abdomen and Pelvis WITHOUT contrast INDICATION: s/p fall yesterday COMPARISON: CT chest dated 12/13/2019. 02/05/2019.. TECHNIQUE: Abdomen and pelvis were scanned utilizing a multidetector helical scanner from the lung base to the pubic symphysis without administration of IV contrast. Absence of intravenous contrast decreases sensitivity for detection of focal lesions and vascular pathology. Coronal and sagittal reformations were obtained. Routine protocol was performed. IV CONTRAST: None ORAL CONTRAST: None COMPLICATIONS: None RADIATION DOSE: Total DLP: 540.69 mGy*cm Estimated effective dose: (DLP x 0.015 x size factor) mSv CTDIvol has been reviewed. It is below the limits set by the Radiation Protocol Committee (RPC). Dose modulation, iterative reconstruction, and/or weight based adjustment of the mA/kV was utilized to reduce the radiation dose to as low as reasonably achievable. FINDINGS: LINES and TUBES: None. LOWER THORAX: 2.1 cm nodular opacity in the left upper lobe, similar to prior, but increased in size from 02/05/2019 when it measured 1.1 cm. Multiple additional scattered subcentimeter nodular opacities are no significant change. Trace right pleural effusion.. HEPATOBILIARY: No focal hepatic lesions. No biliary ductal dilation. GALLBLADDER: There are cholecystectomy clips. No wall thickening. SPLEEN: No splenomegaly. PANCREAS: No focal masses or ductal dilatation. ADRENALS: No adrenal nodules KIDNEYS/URETERS: Marked left hydroureteronephrosis. Atrophy of the left renal parenchyma, likely representing a chronic process. GI TRACT: No abnormal distention, wall thickening, or evidence of bowel obstruction. Appendix is normal. PELVIC ORGANS/BLADDER: Ill-defined approximately 5.3 cm perirectal mass, best seen on coronal imaging, that abuts the distal ureter. This appears separate from the atrophic uterus or vaginal cuff if patient has had hysterectomy. Soft tissue extends posteriorly and abuts the sacrum. L4 vertebral body through the coccyx demonstrates hazy mid to possible cortical erosion of the left medial sacrum concerning for metastatic disease. Urinary bladder is distended. LYMPH NODES: 4.2 x 3.9 cm solid lobulated soft tissue mass along the left external iliac chain VESSELS: Unremarkable. PERITONEUM / RETROPERITONEUM: No free air or fluid. BONES: Unremarkable. IMPRESSION: 1. Findings are concerning for pelvic masses which result in obstruction of the distal left ureter resulting in left hydroureteronephrosis that appears chronic as there is marked cortical atrophy. Masses are not well assessed on noncontrast exam and it is difficult to discern from the atrophic uterus/vaginal cuff (if history of hysterectomy). Mottled density of the L4 vertebral body through the coccyx may represent osseous metastases. Lobulated mass along the external iliac chain measuring 4.2 cm may represent lela metastases. Uncertain primary. Consider nonemergent outpatient pelvic MRI for better characterization versus soft tissue sampling. 2. Enlarging 2.1 cm nodular opacity in the left upper lobe. Additional smaller pulmonary nodules appear stable. While this could represent infectious/inflammatory process, the interval enlargement from 2019 is concerning for malignancy. Consider soft tissue sampling versus PET/CT. 3. Distended urinary bladder. Correlate for bladder outlet obstruction. 4. No acute posttraumatic sequelae of the abdomen and pelvis. Signed by: Chanell Madsen MD on 07/03/2020 10:31 PM Dictated By: CHANELL MADSEN MD 49 Transcribed By: RHEA on 07/03/202230 COPY TO: LAURYN ESPINOZA MD CHEST SINGLE (PORTABLE) 2020-07-03 21:59:00 [place] [address] Patient Name: ONEIL ACHARYA MR #: [id number] : 1935 Age/Sex: 85/M Req #: [id number] Adm Physician: Ordered by: LAURYN ESPINOZA MD Report #: [id number] Location: ER Room/Bed: Procedure: [id number] DX/CHEST SINGLE (PORTABLE) Exam Date: 07/03/20 Exam Time: 2099 REPORT STATUS: Signed EXAMINATION: CHEST SINGLE (PORTABLE) [...] MD CT CERVICAL SPINE WO 2020-07-03 21:38:00 [place] [address] Patient Name: ONEIL ACHARYA MR #: [id number] : 1935 Age/Sex: 85/M Req #: [id number] [facility] Physician: Ordered by: LAURYN ESPINOZA MD Report #: [id number] Location: ER Room/Bed: Procedure: [id number] CT/CT CERVICAL SPINE WO Exam Date: 07/03/20 Exam Time: 2100 REPORT STATUS: Signed History: Status post fall. [...] ESPINOZA MD CT BRAIN WO 2020-07-03 21:34:00 [place] [address] Patient Name: ONEIL ACHARYA MR #: [id number] : 1935 Age/Sex: 85/M Req #: [id number] Adm Physician: Ordered by: LAURYN ESPINOZA MD Report #: [id number] Location: Room/Bed: Procedure: [id number] CT/CT BRAIN WO Exam Date: 07/03/20 Exam [...] ESPINOZA MD FOOT LEFT COMPLETE 2020-05-20 13:26:00 [place] [address] Patient Name: ONEIL ACHARYA MR #: [id number] : 1935 Age/Sex: 85/M Req #: [id number] Adm Physician: Ordered by: OLMAN PAUL MD Report #: [id number] Location: ER Room/Bed: Procedure: [id number] DX/FOOT LEFT COMPLETE Exam Date: 05/20/20 Exam [...] PAUL MD CHEST SINGLE (PORTABLE) 2020-05-20 13:23:00 [place] [address] Patient Name: ONEIL ACHARYA MR #: [id number] : 1935 Age/Sex: 85/M Req #: [id number] Adm Physician: Ordered by: OLMAN PAUL MD Report #: [id number] Location: ER Room/Bed: Procedure: [id number] DX/CHEST SINGLE (PORTABLE) Exam Date: 05/20/20 Exam [...] PAUL MD CT CHEST WO 2019-12-14 01:26:00 [place] [address] Patient Name: ONEIL ACHARYA MR #: [id number] : 1935 Age/Sex: 84/M Req #: [id number] Adm Physician: Ordered by: LAURYN ESPINOZA MD Report #: [id number] Location: ER Room/Bed: Procedure: [id number] CT/CT CHEST WO Exam Date: 12/13/19 Exam [...] the proper clinical setting. 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 2. Large left parapelvic cyst versus chronic hydronephrosis only partially visualized. Signed by: Dr. Vega Butler M.D. on 12/14/2019 1:41 AM Dictated By: ANIL BUTLER MD, MD 0 Transcribed By: RHEA on 12/14/19140 COPY TO: LAURYN ESPINOZA MD Sodium Level 2019-12-14 00:50:00 Test Item Sodium Level (test code = 2951-2) 138 136-145 [facility]woodPotassium Kofdu0268-11-84 00:50:00* Test Item Value Reference Range Interpretation Comments Potassium Level (test code = 2823-3) 3.7 3.5-5.1 [facility]woodChloride Pfjqy2179-68-37 00:50:00* Test Item Value Reference Range Interpretation Comments Chloride Level (test code = 2075-0) 106 98-107 [facility]woodCarbon Dioxide Dcrgf6858-70-75 00:50:00* Test Item Value Reference Range Interpretation Comments Carbon Dioxide Level (test code = 2028-9) 23 22-29 [facility]woodAnion Ujj8131-16-78 00:50:00* Test Item Value Reference Range Interpretation Comments Anion Gap (test code = 55355-9) 12.7 8-16 [facility]woodBlood Urea Jsdfahpw9492-17-72 00:50:00* Test Item Value Reference Range Interpretation Comments Blood Urea Nitrogen (test code = 3094-0) 21 7-26 [facility]woodCreatinine2020-02-08 00:50:00* Test Item Value Reference Range Interpretation Comments Creatinine (test code = 2160-0) 1.23 0.72-1.25 [facility]woodBUN/Creatinine Gkrjk0554-69-06 00:50:00* Test Item Value Reference Range Interpretation Comments BUN/Creatinine Ratio (test code = 3097-3) 17 6-25 [facility] BrownwoodEstimat Glomerular Filtration Rate 2019-12-14 00:50:00* Test Item Value Reference Range Interpretation Comments Estimat Glomerular Filtration Rate (test code = 258895288) 56 >60 L Ranges were taken from the National Kidney Disease Education Program and the [facility] Kidney Foundation literature.Reference ranges:60 or greater: Owiuui94-87 ( for 3 consecutive months): Chronic kidney disease 15 or less: Kidney failureHendrick Medical Center BrownwoodGlucose Iuyas4185-20-71 00:50:00* Test Item Value Reference Range Interpretation Comments Glucose Level (test code = BCE3158) 94 74-118 [facility]woodCalcium Cammq3250-24-20 00:50:00* Test Item Value Reference Range Interpretation Comments Calcium Level (test code = 21030-2) 9.6 8.4-10.2 [facility]woodTotal Ttudxoihr3944-50-12 00:50:00* Test Item Value Reference Range Interpretation Comments Total Bilirubin (test code = 1975-2) 0.3 0.2-1.2 [facility] BrownwoodAspartate Amino Transf (AST/SGOT) 2019-12-14 00:50:00* Test Item Value Reference Range Interpretation Comments Aspartate Amino Transf (AST/SGOT) (test code = Aspartate Amino Transf (AST/SGOT)) 21 5-34 [facility] BrownwoodAlanine Aminotransferase (ALT/SGPT) 2019-12-14 00:50:00* Test Item Value Reference Range Interpretation Comments Alanine Aminotransferase (ALT/SGPT) (test code = 1742-6) 7 0-55 [facility]woodTotal Gwrkode9614-24-05 00:50:00* Test Item Value Reference Range Interpretation Comments Total Protein (test code = 2885-2) 7.7 6.5-8.1 [facility] BrownwoodAlbumin2020-02-08 00:50:00* Test Item Value Reference Range Interpretation Comments Albumin (test code = 1751-7) 3.6 3.5-5.0 [facility]woodGlobulin2020-02-08 00:50:00* Test Item Value Reference Range Interpretation Comments Globulin (test code = 92506-2) 4.1 2.3-3.5 H [facility] BrownwoodAlbumin/Globulin Myfji0747-77-38 00:50:00 * Test Item Value Reference Range Interpretation Comments Albumin/Globulin Ratio (test code = 1759-0) 0.9 0.8-2.0 [facility]woodAlkaline Icosirclqam8811-15-45 00:50:00* Test Item Value Reference Range Interpretation Comments Alkaline Phosphatase (test code = 6768-6) 395 40-150 H [facility]woodWhite Blood Xxtny0718-24-31 00:19:00* Test Item Value Reference Range Interpretation Comments White Blood Count (test code = 6690-2) 8.42 4.8-10.8 [facility]woodRed Blood Euvtf6638-85-45 00:19:00* Test Item Value Reference Range Interpretation Comments Red Blood Count (test code = 789-8) 3.89 4.3-5.7 L [facility]woodHemoglobin2020-02-08 00:19:00* Test Item Value Reference Range Interpretation Comments Hemoglobin (test code = 59878-0) 13.5 14.0-18.0 L [facility]woodHematocrit2020-02-08 00:19:00* Test Item Value Reference Range Interpretation Comments Hematocrit (test code = 4544-3) 40.6 38.2-49.6 [facility] BrownwoodMean Corpuscular Focdif6764-93-07 00:19:00* Test Item Value Reference Range Interpretation Comments Mean Corpuscular Volume (test code = 787-2) 104.4 81-99 H [facility] BrownwoodMean Corpuscular Ngbfvpojtm3078-19-30 00:19:00* Test Item Value Reference Range Interpretation Comments Mean Corpuscular Hemoglobin (test code = 785-6) 34.7 28-32 H [facility] BrownwoodMean Corpuscular Hemoglobin Concent 2019-12-14 00:19:00* Test Item Value Reference Range Interpretation Comments Mean Corpuscular Hemoglobin Concent (test code = 786-4) 33.3 31-35 [facility] BrownwoodRed Cell Distribution Wvaec1177-01-20 00:19:00* Test Item Value Reference Range Interpretation Comments Red Cell Distribution Width (test code = 59384-9) 13.0 11.7 -14.4 [facility] BrownwoodPlatelet Tzeux9834-10-47 00:19:00* Test Item Value Reference Range Interpretation Comments Platelet Count (test code = 777-3) 223 140-360 [facility]woodNeutrophils (%) (Auto)2019-12-14 00:19:00 * Test Item Value Reference Range Interpretation Comments Neutrophils (%) (Auto) (test code = 81986-1) 55.7 38.7-80.0 [facility]woodLymphocytes (%) (Auto)2019-12-14 00:19:00 * Test Item Value Reference Range Interpretation Comments Lymphocytes (%) (Auto) (test code = 736-9) 30.0 18.0-39.1 [facility]woodMonocytes (%) (Auto)2019-12-14 00:19:00* Test Item Value Reference Range Interpretation Comments Monocytes (%) (Auto) (test code = 5905-5) 8.7 4.4-11.3 [facility]woodEosinophils (%) (Auto)2019-12-14 00:19:00 * Test Item Value Reference Range Interpretation Comments Eosinophils (%) (Auto) (test code = 713-8) 4.9 0.0-6.0 [facility]woodBasophils (%) (Auto)2019-12-14 00:19:00* Test Item Value Reference Range Interpretation Comments Basophils (%) (Auto) (test code = 706-2) 0.5 0.0-1.0 [facility]woodIM GRANULOCYTES %2019-12-14 00:19:00* Test Item Value Reference Range Interpretation Comments IM GRANULOCYTES % (test code = IM GRANULOCYTES %) 0.2 0.0- 1.0 [facility]woodNeutrophils # (Auto)2019-12-14 00:19:00* Test Item Value Reference Range Interpretation Comments Neutrophils # (Auto) (test code = 751-8) 4.7 2.1-6.9 [facility]woodLymphocytes # (Auto)2019-12-14 00:19:00* Test Item Value Reference Range Interpretation Comments Lymphocytes # (Auto) (test code = 97658-2) 2.5 1.0-3.2 [facility]woodMonocytes # (Auto)2019-12-14 00:19:00* Test Item Value Reference Range Interpretation Comments Monocytes # (Auto) (test code = 742-7) 0.7 0.2-0.8 [facility]woodEosinophils # (Auto)2019-12-14 00:19:00* Test Item Value Reference Range Interpretation Comments Eosinophils # (Auto) (test code = 711-2) 0.4 0.0-0.4 [facility]woodBasophils # (Auto)2019-12-14 00:19:00* Test Item Value Reference Range Interpretation Comments Basophils # (Auto) (test code = 704-7) 0.0 0.0-0.1 [facility] BrownwoodAbsolute Immature Granulocyte (auto 2019-12-14 00:19:00* Test Item Value Reference Range Interpretation Comments Absolute Immature Granulocyte (auto (nathan t code = Absolute Immature Granulocyte (auto) 0.02 0-0.1 [facility] BrownwoodLUMBAR 3 PLNR2118-07-65 22:12:00 [facility] [address] [place] [address] Patient Name: ONEIL ACHARYA MR #: [id number] : 1935 Age/Sex: 84/M Req #: [id number] Adm Physician: Ordered by: LAURYN ESPINOZA MD Report #: [id number] Location: ER Room/Bed: Procedure: DX/LUMBAR 3 VIEW Exam Date: 12/13/19 Exam Ti me: 2114 REPORT STATUS: Signed L umbar Spine Radiographs: [...] 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 Signed by: Dr. Vega Butler M.D. on 12/13/2019 10:14 PM Dictated By: ANIL Cho MD 13 Transcrib ed By: RHEA on 12/13/192213 COPY TO: LAURYN ESPINOZA MD [facility] 2 EVVXT2199-56-50 22:07:00 [place] [address] Patient Name: ONEIL ACHARYA MR #: [id number] : 1935 Age/Sex: 84/M Req #: [id number] Adm Physician: Ordered by: LAURYN ESPINOZA MD [...] Count (test code = 6690-2) 8.42 4.8-10.8 [facility]woodBlwelia health erythrocytes automated count (number/volume)2019-12-12 23:00:00* Test Item Value Reference Range Interpretation Comments Red Blood Count (test code = 789-8) 3.89 4.3-5.7 [facility] hemoglobin measurement (moles/volume)2019-12-12 23:00:00* Test Item Value Reference Range Interpretation Comments Hemoglobin (test code = 76508-1) 13.5 14.0-18.0 [facility] BrownwoodAutomated blood hematocrit (volume fraction)2019-12-12 23:00:00* Test Item Value Reference Range Interpretation Comments Hematocrit (test code = 4544-3) 40.6 38.2-49.6 [facility] BrownwoodAutomated erythrocyte mean corpuscular lpaqez1554-51-51 23:00:00* Test Item Value Reference Range Interpretation Comments Mean Corpuscular Volume (test code = 787-2) 104.4 81-99 [facility] BrownwoodAutomated erythrocyte mean corpuscular hemoglobin (mass per erythrocyte)2019-12-12 23:00:00* Test Item Value Reference Range Interpretation Comments Mean Corpuscular Hemoglobin (test code = 785-6) 34.7 28-32 [facility] BrownwoodAutomated erythrocyte mean corpuscular hemoglobin concentration measurement (mass/volume)2019-12-12 23:00:00* Test Item Value Reference Range Interpretation Comments Mean Corpuscular Hemoglobin Concent (test code = 786-4) 33.3 31-35 [facility] BrownwoodRD OecWx-Pzq2550-41-06 23:00:00* Test Item Value Reference Range Interpretation Comments Red Cell Distribution Width (test code = 08966-0) 13.0 11.7 -14.4 [facility] platelet count (count/volume)2019-12-12 23:00:00* Test Item Value Reference Range Interpretation Comments Platelet Count (test code = 777-3) 223 140-360 [facility]ered blood segmented neutrophil count as percentage of total lqevgtlfmn2437-33-66 23:00:00* Test Item Value Reference Range Interpretation Comments Neutrophils (%) (Auto) (test code = 03332-5) 55.7 38.7-80.0 [facility] BrownwoodAutomated blood lymphocyte count as percentage ot total mqshmqtdje3195-25-79 23:00:00* Test Item Value Reference Range Interpretation Comments Lymphocytes (%) (Auto) (test code = 736-9) 30.0 18.0-39.1 [facility] BrownwoodAutomated blood monocyte count as percentage of total akqgykzlxv0415-71-09 23:00:00* Test Item Value Reference Range Interpretation Comments Monocytes (%) (Auto) (test code = 5905-5) 8.7 4.4-11.3 [facility] BrownwoodAutomated blood eosinophil count as percentage of total vmyjogypoy4444-23-95 23:00:00* Test Item Value Reference Range Interpretation Comments Eosinophils (%) (Auto) (test code = 713-8) 4.9 0.0-6.0 [facility] BrownwoodAutomated blood basophil count as percentage of total fezbcnbgtd5691-96-72 23:00:00* Test Item Value Reference Range Interpretation Comments Basophils (%) (Auto) (test code = 706-2) 0.5 0.0-1.0 [facility] BrownwoodFluoroscopic procedure less than one hour fymcpfct2706-07-35 23:00:00* Test Item Value Reference Range Interpretation Comments IM GRANULOCYTES % (test code = IM GRANULOCYTES %) 0.2 0.0- 1.0 [facility] BrownwoodAutomated blood neutrophil count 2019-12-12 23:00:00* Test Item Value Reference Range Interpretation Comments Neutrophils # (Auto) (test code = 751-8) 4.7 2.1-6.9 [facility] BrownwoodBlood lymphocytes count (number/volume) 2019-12-12 23:00:00* Test Item Value Reference Range Interpretation Comments Lymphocytes # (Auto) (test code = 41788-9) 2.5 1.0-3.2 [facility]woodBlw[facility] health monocytes automated count (number/volume)2019-12-12 23:00:00* Test Item Value Reference Range Interpretation Comments Monocytes # (Auto) (test code = 742-7) 0.7 0.2-0.8 [facility] BrownwoodAutomated blood eosinophil count 2019-12-12 23:00:00* Test Item Value Reference Range Interpretation Comments Eosinophils # (Auto) (test code = 711-2) 0.4 0.0-0.4 [facility] BrownwoodAutomated blood basophil count (count/volume)2019-12-12 23:00:00* Test Item Value Reference Range Interpretation Comments Basophils # (Auto) (test code = 704-7) 0.0 0.0-0.1 [facility] BrownwoodFluoroscopic procedure less than one hour sgfoyucz3026-66-07 23:00:00* Test Item Value Reference Range Interpretation Comments Absolute Immature Granulocyte (auto (nathan t code = Absolute Immature Granulocyte (auto) 0.02 0-0.1 [facility] sodium [facility] (moles/volume)2019-12-12 23:00:00* Test Item Value Reference Range Interpretation Comments Sodium Level (test code = 2951-2) 138 136-145 [facility] potassium measurement (moles/volume)2019-12-12 23:00:00* Test Item Value Reference Range Interpretation Comments Potassium Level (test code = 2823-3) 3.7 3.5-5.1 [facility] chloride measurement (moles/volume)2019-12-12 23:00:00* Test Item Value Reference Range Interpretation Comments Chloride Level (test code = 2075-0) 106 98-107 [facility] carbon dioxide, total measurement (moles/volume)2019-12-12 23:00:00* Test Item Value Reference Range Interpretation Comments Carbon Dioxide Level (test code = 2028-9) 23 22-29 [facility] anion [id number] 23:00:00* Test Item Value Reference Range Interpretation Comments Anion Gap (test code = 77383-8) 12.7 8-16 [facility] urea nitrogen measurement (mass/volume)2019-12-12 23:00:00* Test Item Value Reference Range Interpretation Comments Blood Urea Nitrogen (test code = 3094-0) 21 7- [facility] creatinine measurement (mass/volume)2019-12-12 23:00:00* Test Item Value Reference Range Interpretation Comments Creatinine (test code = 2160-0) 1.23 0.72-1.25 [facility] urea nitrogen/creatinine mass wlhbz5671-23-51 23:00:00* Test Item Value Reference Range Interpretation Comments BUN/Creatinine Ratio (test code = 3097-3) 17 6-25 [facility] BrownwoodEstimated glomerular filtration rate (GFR) noeuoeyhcgwoo7218-94-67 23:00:00* Test Item Value Reference Range Interpretation Comments Estimat Glomerular Filtration Rate (test code = 242283345) 56 >60 Ranges were taken from the National Kidney Disease Education Program and the [place] pending sale to [facility] Kid[employer] Foundation literature.Reference ranges:60 or greater: Jhlmml24-20 ( for 3 consecutive months): Chronic kidney disease 15 or less: Kidney failureHendrick Medical Center BrownwoodGlucose jadyltkfmep2284-48-69 23:00:00* Test Item Value Reference Range Interpretation Comments Glucose Level (test code = XYL2391) 94 74-118 [facility] calcium measurement (mass/volume)2019-12-12 23:00:00* Test Item Value Reference Range Interpretation Comments Calcium Level (test code = 30423-9) 9.6 8.4-10.2 [facility] plasma total bilirubin measurement (mass/volume)2019-12-12 23:00:00* Test Item Value Reference Range Interpretation Comments Total Bilirubin (test code = 1975-2) 0.3 0.2-1.2 [facility] BrownwoodFluoroscopic procedure less than one hour efvjhmdq8915-57-40 23:00:00* Test Item Value Reference Range Interpretation Comments Aspartate Amino Transf (AST/SGOT) (test code = Aspartate Amino Transf (AST/SGOT)) 21 5-34 [facility]rum or plasma alanine aminotransferase measurement (enzymatic activity/volume)2019-12-12 23:00:00* Test Item Value Reference Range Interpretation Comments Alanine Aminotransferase (ALT/SGPT) (test code = 1742-6) 7 0-55 [facility] plasma protein measurement (mass/volume)2019-12-12 23:00:00* Test Item Value Reference Range Interpretation Comments Total Protein (test code = 2885-2) 7.7 6.5-8.1 [facility] plasma albumin measurement (mass/volume)2019-12-12 23:00:00* Test Item Value Reference Range Interpretation Comments Albumin (test code = 1751-7) 3.6 3.5-5.0 [facility] BrownwoodPlasma globulin measurement (mass/volume) 2019-12-12 23:00:00* Test Item Value Reference Range Interpretation Comments Globulin (test code = 80758-8) 4.1 2.3-3.5 [facility]rum [facility] plasma albumin/globulin mass upuvq2866-97-34 23:00:00* Test Item Value Reference Range Interpretation Comments Albumin/Globulin Ratio (test code = 1759-0) 0.9 0.8-2.0 [facility]rum [facility] plasma alkaline phosphatase measurement (enzymatic activity/volume)2019-12-12 23:00:00* Test Item Value Reference Range Interpretation Comments Alkaline Phosphatase (test code = 6768-6) 395 40-150 [facility] BrownwoodBlood itewvdw2444-92-59 23:00:00* Test Item Value Reference Range Interpretation Comments Blood Culture (test code = 13911037) NO GROWTH AFTER 5 DAYS, FINAL REPORT [facility] BrownwoodBacterial blood srjmkor3434-60-30 23:00:00* Test Item Value Reference Range Interpretation Comments Blood Culture (test code = 600-7) STAPHYLOCOCCUS SP COAG NEG [facility] BrownwoodCT CHEST [id number] 21:24:00 [facility] [address] [address] Patient Name: ONEIL ACHARYA MR #: [id number] : 1935 Age/Sex: 83/M Req #: [id number] Adm Physician: Ordered by: FAVIOLA FREED MD Report #: [id number] Location: ER Room/Bed: Procedure: [id number] [id number] CT/CT CHEST W Exam Date: 02/05/19 Exam [...] 45 COPY TO: JANETH FREED MD Troponin [id number] 19:35:00* Test Item Value Reference Range Interpretation Comments Troponin I (test code = UDQ2523) 0.008 0-0.300 [facility] BrownwoodB-Type Natriuretic Mqogwxo9480-47-27 19:22:00* Test Item Value Reference Range Interpretation Comments B-Type Natriuretic Peptide (test code = 57421-3) 29.4 0-100 [facility] Centerodium Xfpkm7381-84-01 19:19:00* Test Item Value Reference Range Interpretation Comments Sodium Level (test code = 2951-2) 135 136-145 L [facility] BrownwoodPotassium Texed1036-55-86 19:19:00* Test Item Value Reference Range Interpretation Comments Potassium Level (test code = 2823-3) 3.9 3.5-5.1 [facility] BrownwoodChloride Mkikn3862-35-21 19:19:00* Test Item Value Reference Range Interpretation Comments Chloride Level (test code = 2075-0) 104 98-107 [facility] BrownwoodCarbon Dioxide Jqgov8086-31-25 19:19:00* Test Item Value Reference Range Interpretation Comments Carbon Dioxide Level (test code = 2028-9) 26 22-29 [facility] BrownwoodAnion Qbn1943-91-61 19:19:00* Test Item Value Reference Range Interpretation Comments Anion Gap (test code = 90639-8) 8.9 8-16 [facility] BrownwoodBlood Urea Elysnaug0398-37-76 19:19:00* Test Item Value Reference Range Interpretation Comments Blood Urea Nitrogen (test code = 3094-0) 20 7-26 [facility] BrownwoodCreatinine2019-04-02 19:19:00* Test Item Value Reference Range Interpretation Comments Creatinine (test code = 2160-0) 1.30 0.72-1.25 H [facility] BrownwoodBUN/Creatinine Iknwf0103-48-82 19:19:00* Test Item Value Reference Range Interpretation Comments BUN/Creatinine Ratio (test code = 3097-3) 15 6-25 [facility] BrownwoodEstimat Glomerular Filtration Rate 2019-02-05 19:19:00* Test Item Value Reference Range Interpretation Comments Estimat Glomerular Filtration Rate (test code = 971365283) 52 >60 L Ranges were taken from the National Kidney Disease Education Program and the [facility] Foundation literature.Reference ranges:60 or greater: Ibmfbu95-10 ( for 3 consecutive months): Chronic kidney disease 15 or less: Kidney failureHendrick Medical Center BrownwoodGlucose Ryiiv2756-18-65 19:19:00* Test Item Value Reference Range Interpretation Comments Glucose Level (test code = GYY2510) 109 74-118 [facility] BrownwoodCalcium Hnvro5546-47-15 19:19:00* Test Item Value Reference Range Interpretation Comments Calcium Level (test code = 20259-5) 9.7 8.4-10.2 [facility] BrownwoodTotal Ylzzgqvna2089-34-40 19:19:00* Test Item Value Reference Range Interpretation Comments Total Bilirubin (test code = 1975-2) 0.3 0.2-1.2 [facility] BrownwoodAspartate Amino Transf (AST/SGOT) 2019-02-05 19:19:00* Test Item Value Reference Range Interpretation Comments Aspartate Amino Transf (AST/SGOT) (test code = Aspartate Amino Transf (AST/SGOT)) 22 5-34 [facility] BrownwoodAlanine Aminotransferase (ALT/SGPT) 2019-02-05 19:19:00* Test Item Value Reference Range Interpretation Comments Alanine Aminotransferase (ALT/SGPT) (test code = 1742-6) 9 0-55 [facility] BrownwoodTotal Lbghypq8522-88-11 19:19:00* Test Item Value Reference Range Interpretation Comments Total Protein (test code = 2885-2) 7.5 6.5-8.1 [facility] BrownwoodAlbumin2019-04-02 19:19:00* Test Item Value Reference Range Interpretation Comments Albumin (test code = 1751-7) 3.1 3.5-5.0 L [facility] BrownwoodGlobulin2019-04-02 19:19:00* Test Item Value Reference Range Interpretation Comments Globulin (test code = 28939-4) 4.4 2.3-3.5 H [facility] BrownwoodAlbumin/Globulin Kzscz4434-45-39 19:19:00 * Test Item Value Reference Range Interpretation Comments Albumin/Globulin Ratio (test code = 1759-0) 0.7 0.8-2.0 L [facility] BrownwoodAlkaline Bdgjxuwcjuk6673-33-56 19:19:00* Test Item Value Reference Range Interpretation Comments Alkaline Phosphatase (test code = 6768-6) 151 40-150 H [facility] BrownwoodProthrombin Apcl1985-47-81 19:11:00* Test Item Value Reference Range Interpretation Comments Prothrombin Time (test code = 5902-2) 14.3 11.9-14.5 [facility] BrownwoodProthromb Time International Ratio 2019-02-05 19:11:00* Test Item Value Reference Range Interpretation Comments Prothromb Time International Ratio (test code = 6301-6) 1.06 Oral Anticoagulant Therapy INR Values:1. Low Intensity Therapy 1.5 - 2.02 . Moderate Intensity Therapy 2.0 - 3.03. High Intensity Therapy(1) 2.5 - 3. 54. High Intensity Therapy(2) 3.0 - 4.05. Panic Value INR > 5.0 [facility] BrownwoodActivated Partial Thromboplast Time 2019-02-05 19:11:00* Test Item Value Reference Range Interpretation Comments Activated Partial Thromboplast Time (test code = 46148-6) 45.3 23.8-35.5 H [facility] BrownwoodWhite Blood Rxwtf1486-28-13 18:54:00* Test Item Value Reference Range Interpretation Comments White Blood Count (test code = 6690-2) 6.77 4.8-10.8 [facility] BrownwoodRed Blood Oojbv2615-30-97 18:54:00* Test Item Value Reference Range Interpretation Comments Red Blood Count (test code = 789-8) 3.80 4.3-5.7 L [facility] BrownwoodHemoglobin2019-04-02 18:54:00* Test Item Value Reference Range Interpretation Comments Hemoglobin (test code = 65808-2) 13.3 14.0-18.0 L [facility] BrownwoodHematocrit2019-04-02 18:54:00* Test Item Value Reference Range Interpretation Comments Hematocrit (test code = 4544-3) 39.5 38.2-49.6 [facility] BrownwoodMean Corpuscular Mclhev6331-40-13 18:54:00* Test Item Value Reference Range Interpretation Comments Mean Corpuscular Volume (test code = 787-2) 103.9 81-99 H [facility] BrownwoodMean Corpuscular Ivlycrvktt3687-15-39 18:54:00* Test Item Value Reference Range Interpretation Comments Mean Corpuscular Hemoglobin (test code = 785-6) 35.0 28-32 H [facility] BrownwoodMean Corpuscular Hemoglobin Concent 2019-02-05 18:54:00* Test Item Value Reference Range Interpretation Comments Mean Corpuscular Hemoglobin Concent (test code = 786-4) 33.7 31-35 [facility] BrownwoodRed Cell Distribution Jdyot8837-92-63 18:54:00* Test Item Value Reference Range Interpretation Comments Red Cell Distribution Width (test code = 15966-8) 13.2 11.7 -14.4 [facility] BrownwoodPlatelet Dzgzy0135-61-99 18:54:00* Test Item Value Reference Range Interpretation Comments Platelet Count (test code = 777-3) 224 140-360 [facility] BrownwoodNeutrophils (%) (Auto)2019-02-05 18:54:00 * Test Item Value Reference Range Interpretation Comments Neutrophils (%) (Auto) (test code = 40839-8) 59.5 38.7-80.0 [facility] BrownwoodLymphocytes (%) (Auto)2019-02-05 18:54:00 * Test Item Value Reference Range Interpretation Comments Lymphocytes (%) (Auto) (test code = 736-9) 25.3 18.0-39.1 [facility] BrownwoodMonocytes (%) (Auto)2019-02-05 18:54:00* Test Item Value Reference Range Interpretation Comments Monocytes (%) (Auto) (test code = 5905-5) 9.6 4.4-11.3 [facility] BrownwoodEosinophils (%) (Auto)2019-02-05 18:54:00 * Test Item Value Reference Range Interpretation Comments Eosinophils (%) (Auto) (test code = 713-8) 5.0 0.0-6.0 [facility] BrownwoodBasophils (%) (Auto)2019-02-05 18:54:00* Test Item Value Reference Range Interpretation Comments Basophils (%) (Auto) (test code = 706-2) 0.3 0.0-1.0 [facility] BrownwoodIM GRANULOCYTES %2019-02-05 18:54:00* Test Item Value Reference Range Interpretation Comments IM GRANULOCYTES % (test code = IM GRANULOCYTES %) 0.3 0.0- 1.0 [facility] BrownwoodNeutrophils # (Auto)2019-02-05 18:54:00* Test Item Value Reference Range Interpretation Comments Neutrophils # (Auto) (test code = 751-8) 4.0 2.1-6.9 [facility] BrownwoodLymphocytes # (Auto)2019-02-05 18:54:00* Test Item Value Reference Range Interpretation Comments Lymphocytes # (Auto) (test code = 94705-1) 1.7 1.0-3.2 [facility] BrownwoodMonocytes # (Auto)2019-02-05 18:54:00* Test Item Value Reference Range Interpretation Comments Monocytes # (Auto) (test code = 742-7) 0.7 0.2-0.8 [facility] BrownwoodEosinophils # (Auto)2019-02-05 18:54:00* Test Item Value Reference Range Interpretation Comments Eosinophils # (Auto) (test code = 711-2) 0.3 0.0-0.4 [facility] BrownwoodBasophils # (Auto)2019-02-05 18:54:00* Test Item Value Reference Range Interpretation Comments Basophils # (Auto) (test code = 704-7) 0.0 0.0-0.1 [facility] BrownwoodAbsolute Immature Granulocyte (auto 2019-02-05 18:54:00* Test Item Value Reference Range Interpretation Comments Absolute Immature Granulocyte (auto (nathan t code = Absolute Immature Granulocyte (auto) 0.02 0-0.1 [facility] BrownwoodTHROMBOPLASTIN TIME ERKLSET3350-78-00 11:17:00* Test Item Value Reference Range Interpretation Comments THROMBOPLASTIN TIME PARTIAL (test code = PTT) 43.4 seconds 25.0-36. 5 H IS PATIENT ON ANTICOAGULANTS? YLIST ANTICOAGULANTS HEPARINTHROMBOPLASTIN TIME PZEATYV9483-77-45 04:45:00* Test Item Value Reference Range Interpretation Comments THROMBOPLASTIN TIME PARTIAL (test code = PTT) 50.7 seconds 25.0-36. 5 H IS PATIENT ON ANTICOAGULANTS? YLIST ANTICOAGULANTS HEPARINAG PROSTATE BRYHZTYO6941-24-30 04:09:00* Test Item Value Reference Range Interpretation Comments AG PROSTATE SPECIFIC (test code = PSA) 103.20 ng/mL 0.0-4.0 H AG [id number]8 04:09:00* Test Item Value Reference Range Interpretation Comments AG CARCINOEMBRYONIC (test code = CEA) 1.8 ng/mL 0.0-3.0 N "HEALTHY" SMOKERS CAN HAVE CEA VALUES UP TO 5 NG/ML. BENIGNDISORDERS SELDOM ELEVATE THE SERUM CEA LEVEL ABOVE 10 NG/ML. ALPHA FETOPROTEIN TUMOR [id number] 04:09:00* Test Item Value Reference Range Interpretation Comments ALPHA FETOPROTEIN TUMOR MARKER (test code = AFPTM) 1.7 ng/mL 0.0 -8.3 [facility] Electrochemiluminescence Immunoassay(ECLIA)Values obtained with different assay methods or kits cannotbe used interchangeably. Results cannot be interpreted asabsolute evidence of the presence or absence of malignantdisease.This test is not interpretable in females. CA 41-80084-50-29 04:09:00* Test Item Value Reference Range Interpretation Comments CA 19-9 (test code = CA19) Unit/mL AG PROSTATE [id number] 04:09:00* Test Item Value Reference Range Interpretation Comments AG PROSTATE SPECIFIC (test code = PSA) 103.20 ng/mL 0.0-4.0 H AG [id number] 04:09:00* Test Item Value Reference Range Interpretation Comments AG CARCINOEMBRYONIC (test code = CEA) 1.8 ng/mL 0.0-3.0 N "HEALTHY" SMOKERS CAN HAVE CEA VALUES UP TO 5 NG/ML. BENIGNDISORDERS SELDOM ELEVATE THE SERUM CEA LEVEL ABOVE 10 NG/ML. ALPHA FETOPROTEIN TUMOR [id number] 04:09:00* Test Item Value Reference Range Interpretation Comments ALPHA FETOPROTEIN TUMOR MARKER (test code = AFPTM) 1.7 ng/mL 0.0 -8.3 [facility] Electrochemiluminescence Immunoassay(ECLIA)Values obtained with different assay methods or kits cannotbe used interchangeably. Results cannot be interpreted asabsolute evidence of the presence or absence of malignantdisease.This test is not interpretable in females. CA [id number] 04:09:00* Test Item Value Reference Range Interpretation Comments CA 19-9 (test code = CA19) 14 U/mL 0-35 [facility] Electrochemiluminescence Immunoassay(ECLIA)Values obtained with different assay methods or kits cannotbe used interchangeably. Results cannot be interpreted asabsolute evidence of the presence or absence of malignantdisease.Performed At: [facility] [id number] Elan Harden MD Ph:[phone] THROMBOPLASTIN TIME [id number] 20:15:00* Test Item Value Reference Range Interpretation Comments THROMBOPLASTIN TIME PARTIAL (test code = PTT) 58.6 seconds 25.0-36. 5 H IS PATIENT ON ANTICOAGULANTS? YLIST ANTICOAGULANTS HEPARINTHROMBOPLASTIN TIME [id number] 14:47:00* Test Item Value Reference Range Interpretation Comments THROMBOPLASTIN TIME PARTIAL (test code = PTT) 58.1 seconds 25.0-36. 5 H IS PATIENT ON ANTICOAGULANTS? YLIST ANTICOAGULANTS HEPARINBASIC METABOLIC [id number] 14:41:00* Test Item Value Reference Range Interpretation [...] CA) 8.9 mg/dL 8.5-10.1 N BASIC METABOLIC [id number] 14:34:00* Test Item Value Reference Range Interpretation [...] code = CA) mg/dL 8.5-10.1 THROMBOPLASTIN TIME [id number] 07:50:00* Test Item Value Reference Range Interpretation Comments THROMBOPLASTIN TIME PARTIAL (test code = PTT) 73.5 seconds 25.0-36. 5 H IS PATIENT ON ANTICOAGULANTS? YLIST ANTICOAGULANTS HEPARINTHROMBOPLASTIN TIME [id number] 22:30:00* Test Item Value Reference Range Interpretation Comments THROMBOPLASTIN TIME PARTIAL (test code = PTT) 84.2 seconds 25.0-36. 5 H IS PATIENT ON ANTICOAGULANTS? YLIST ANTICOAGULANTS HEPARINAG PROSTATE [id number] 20:39:00* Test Item Value Reference Range Interpretation Comments AG PROSTATE SPECIFIC (test code = PSA) 103.20 ng/mL 0.0-4.0 H AG [id number] 20:39:00* Test Item Value Reference Range Interpretation Comments AG CARCINOEMBRYONIC (test code = CEA) 1.8 ng/mL 0.0-3.0 N "HEALTHY" SMOKERS CAN HAVE CEA VALUES UP TO 5 NG/ML. BENIGNDISORDERS SELDOM ELEVATE THE SERUM CEA LEVEL ABOVE 10 NG/ML. ALPHA FETOPROTEIN TUMOR [id number] 20:39:00* Test Item Value Reference Range Interpretation Comments ALPHA FETOPROTEIN TUMOR MARKER (test code = AFPTM) ng/mL CA 20:39:00* Test Item Value Reference Range Interpretation Comments CA 19-9 (test code = CA19) Unit/mL AG PROSTATE [id number] 19:00:00* Test Item Value Reference Range Interpretation Comments AG PROSTATE SPECIFIC (test code = PSA) ng/mL 0.0-4.0 AG [id number] 19:00:00* Test Item Value Reference Range Interpretation Comments AG CARCINOEMBRYONIC (test code = CEA) 1.8 ng/mL 0.0-3.0 N "HEALTHY" SMOKERS CAN HAVE CEA VALUES UP TO 5 NG/ML. BENIGNDISORDERS SELDOM ELEVATE THE SERUM CEA LEVEL ABOVE 10 NG/ML. ALPHA FETOPROTEIN TUMOR [id number] 19:00:00* Test Item Value Reference Range Interpretation Comments ALPHA FETOPROTEIN TUMOR MARKER (test code = AFPTM) ng/mL CA 19:00:00* Test Item Value Reference Range Interpretation Comments CA 19-9 (test code = CA19) Unit/mL THROMBOPLASTIN TIME [id number] 14:18:00* Test Item Value Reference Range Interpretation Comments THROMBOPLASTIN TIME PARTIAL (test code = PTT) 103.6 seconds 25.0-36 .5 HH Results called to BRIANNA VELOZ by GRISEL 01/30/19 1404Critical results verified and read back by Nurse? Y IS PATIENT ON ANTICOAGULANTS? YLIST ANTICOAGULANTS HEPARINTHROMBOPLASTIN TIME [id number] 07:02:00* Test Item Value Reference Range Interpretation Comments THROMBOPLASTIN TIME PARTIAL (test code = PTT) 177.0 seconds 25.0-36 .5 HH Results called to [id number] by ARMANDO 01/30/19 0654Critical results verified and read back by Nurse? Y IS PATIENT ON ANTICOAGULANTS? YLIST ANTICOAGULANTS HEPARINHEMATOCRIT 2019-01-30 04:10:00* Test Item Value Reference Range Interpretation Comments HEMATOCRIT (test code = HCT) 42.0 % 42.0-52.0 N PLATELET [id number] 04:10:00* Test Item Value Reference Range Interpretation Comments PLATELET COUNT (test code = PLT) 202 K/mm3 150-450 N - CTA [id number] 21:55:00 Name: ONEIL ACHARYA [facility] : 1935 Age/S: 83 / M [address] [facility] Unit #: [id number] Loc: [place] [address] Phys: Scott Lyles MD Acct: [id number] Dis Date: Status: REG ER PHONE #: [phone] Exam Date: 01/29/20192133 FAX #: [phone] Reason: COUGH, HEMOPTYSIS EXAMS: CPT CODE: [id number] CTA CHEST 323[address] CT ANGIOGRAPHY OF CHEST WITH CONTRAST HISTORY: [...] 1 Signed Report (CONTINUED) Name: ONEIL ACHARYA [facility] : 1935 Age/S: 83 / M [address] [facility] Unit #: [id number] Loc: [place] [address] Phys: Scott Lyles MD Acct: [id number] Dis Date: Status: REG ER PHONE #: [phone] Exam Date: 2134 FAX #: [phone] Reason: COUGH, HEMOPTYSIS EXAMS: CPT CODE: [id number] CTA CHEST 55359 <Continued> at 2155 Reported and signed by: Swetha Ames D.O. CC: Ashish Hull MD; Scott Lyles MD Technologist:SHARRI CANO RT(R),CT CTDI: DLP: Trnscb Date/Time: 01/29/2019 (2154) [email or web address] Orig Print D/T: S: 01/29/2019 (2157) CTDI: DLP: PAGE 2 Signed Report PROTHROMBIN [id number] 21:09:00* Test Item Value Reference Range Interpretation [...] (2.5-3.5) IS PATIENT ON ANTICOAGULANTS? NTHROMBOPLASTIN TIME [id number] 21:09:00* Test Item Value Reference Range Interpretation Comments THROMBOPLASTIN TIME PARTIAL (test code = PTT) 28.5 seconds 25.5-34. 3 N Therapeutic Range for patients on Heparin Therapy is 2 to2.5 times their baseline PTT level. IS PATIENT ON ANTICOAGULANTS? NCBC W/AUTO [id number] 20:40:00* Test Item Value Reference Range Interpretation [...] = MDIFF) NO, ONLY SCAN NEEDED DIFFERENTIAL [id number] 20:40:00* Test Item Value Reference Range Interpretation Comments STAIN ACCEPTABILITY (test code = STN ACCEPTABLE) STAIN ACCEPTABLE MACROCYTOSIS (test code = MACR) 1+ PLATELET ESTIMATE (test code = PLTEST) ADEQUATE PLATELET MORPHOLOGY (test code = PLTMORPH) SIZE VARIABLE - XR CHEST 1 [id number] 20:30:00 Name: ONEIL ACHARYA [facility] : 1935 Age/S:83 /M [address] [facility] Unit#:[id number] Loc: [place] [address] Phys: Kwabena Lacy MD Dis Date: PHONE #: [phone] Status: REG ER FAX #: [phone] Exam Date: 01/29/2019 Reason: CP EXAMS: CPT CODE: [id number] XR CHEST 1 V 73614 EXAM: Chest x-ray, one view; INFORMATION: Chest pain, coughing blood; IMPRESSION: 1. No evidence of active cardiopulmonary disease. 2. No significant change compared with the recent study from January 25, 2019. at 2030 Reported and signed by: Hayder Moffett M.D. CC: Ashish Hull MD; Kwabena Lacy MD Technologist: SHARRI CANO RT(R),CT Trnscrpt Data: 01/29/2019 (2029) [email or web address] Orig Print D/T: S: 01/29/2019 (2032) PAGE 1 Signed Report CBC W/AUTO [id number] 19:26:00* Test Item Value Reference Range Interpretation [...] = MDIFF) NO, ONLY SCAN NEEDED DIFFERENTIAL [id number] 19:26:00* Test Item Value Reference Range Interpretation Comments STAIN ACCEPTABILITY (test code = STN ACCEPTABLE) CABOT RINGS (test code = CAB) MORPHOLOGY COMMENT (test code = MOC) PLATELET ESTIMATE (test code = PLTEST) PLATELET MORPHOLOGY (test code = PLTMORPH) CBC W/AUTO [id number] 19:26:00* Test Item Value Reference Range Interpretation [...] = MDIFF) NO, ONLY SCAN NEEDED DIFFERENTIAL [id number] 19:26:00* Test Item Value Reference Range Interpretation Comments STAIN ACCEPTABILITY (test code = STN ACCEPTABLE) MORPHOLOGY COMMENT (test code = MOC) PLATELET ESTIMATE (test code = PLTEST) PLATELET MORPHOLOGY (test code = PLTMORPH) CBC W/AUTO [id number] 19:25:00* Test Item Value Reference Range Interpretation [...] = MDIFF) NO, ONLY SCAN NEEDED DIFFERENTIAL [id number] 19:25:00* Test Item Value Reference Range Interpretation Comments STAIN ACCEPTABILITY (test code = STN ACCEPTABLE) CABOT RINGS (test code = CAB) MORPHOLOGY COMMENT (test code = MOC) PLATELET ESTIMATE (test code = PLTEST) PLATELET MORPHOLOGY (test code = PLTMORPH) CBC W/AUTO [id number] 19:25:00* Test Item Value Reference Range Interpretation [...] = MDIFF) NO, ONLY SCAN NEEDED DIFFERENTIAL [id number] 19:25:00* Test Item Value Reference Range Interpretation Comments STAIN ACCEPTABILITY (test code = STN ACCEPTABLE) CABOT RINGS (test code = CAB) MORPHOLOGY COMMENT (test code = MOC) PLATELET ESTIMATE (test code = PLTEST) PLATELET MORPHOLOGY (test code = PLTMORPH) COMPREHENSIVE METABOLIC [id number] 19:24:00* Test Item Value Reference Range Interpretation [...] code = ALKP) 176 U/L 38-126 H [id number] 19:24:00* Test Item Value Reference Range Interpretation Comments MAGNESIUM (test code = MAG) 2.0 mg/dL 1.6-2.3 N CPK-MB [id number] 19:24:00* Test Item Value Reference Range Interpretation Comments CREATINE KINASE (CK) (test code = CK) 73 U/L 39-308 N CKMB (test code = CKMBT) 0.9 ng/mL 0.0-5.0 N RELATIVE % INDEX (test code = REL%) 1.2 % [id number] 19:24:00* Test Item Value Reference Range Interpretation Comments TROPONIN-I (test code = TROPI) <0.015 ng/mL 0.00-0.056 N [id number] 19:20:00* Test Item Value Reference Range Interpretation Comments D-DIMER (test code = DDIMER) 755 ng/ml < 600 HH Results called to WADE by [email or web address] 01/29/19 1919Critical results verified and read back by Nurse? Y B-TYPE NATRIURETIC [id number] 19:16:00* Test Item Value Reference Range Interpretation Comments B-TYPE NATRIURETIC PEPTIDE (test code = BNP) 35.4 pg/mL 0-100 N LACTIC [id number] 19:14:00* Test Item Value Reference Range Interpretation Comments LACTIC ACID (test code = LACT) 1.6 MMOL/L 0.4-1.9 N COMPREHENSIVE METABOLIC [id number] 19:08:00* Test Item Value Reference Range Interpretation [...] TOTAL (test code = ALKP) IUnit/L 45-117 [id number] 19:08:00* Test Item Value Reference Range Interpretation Comments MAGNESIUM (test code = MAG) mg/dL 1.8-2.4 CPK-MB [id number] 19:08:00* Test Item Value Reference Range Interpretation Comments CREATINE KINASE (CK) (test code = CK) IUnit/L 26-208 CKMB (test code = CKMBT) ng/mL 0-6.0 RELATIVE % INDEX (test code = REL%) % [id number] 19:08:00* Test Item Value Reference Range Interpretation Comments TROPONIN-I (test code = TROPI) ng/mL 0-0.045 URINALYSIS [id number] 19:50:00* Test Item Value Reference Range Interpretation [...] per HPF NONE Urine Source? Clean CatchURINALYSIS [id number] 19:45:00* Test Item Value Reference Range Interpretation [...] HPF 0-5 Urine Source? Clean CatchCBC W/AUTO [id number] 18:17:00* Test Item Value Reference Range Interpretation [...] = MDIFF) NO, ONLY SCAN NEEDED DIFFERENTIAL [id number] 18:17:00* Test Item Value Reference Range Interpretation Comments STAIN ACCEPTABILITY (test code = STN ACCEPTABLE) STAIN ACCEPTABLE MORPHOLOGY COMMENT (test code = MOC) NORMAL PLATELET ESTIMATE (test code = PLTEST) ADEQUATE PLATELET MORPHOLOGY (test code = PLTMORPH) NORMAL - XR CHEST 1 [id number] 17:54:00 Name: ONEIL ACHARYA [facility] : 1935 Age/S:83 /M [address] [facility] Unit#:[id number] Loc: [place] [address] Phys: Citlali Ahuja MD Dis Date: PHONE #: [phone] Status: REG FAX #: [phone] Exam Date: 01/25/2019 Reason: SHORTNESS OF BREATH COUGH, VOMITING EXAMS: CPT CODE: [id number] XR CHEST 1 V [id number] EXAM: Chest X-ray, 1 view; CLINICAL HISTORY: Shortness of breath, cough; FINDINGS: The lungs are clear, no infiltrates, no edema; no effusions; no pneumothorax; normal cardiomediastinal silhouette. IMPRESSION: Normal chest x-ray. at 9606 Reported and signed by: Hayder Mofeftt M.D. CC: Citlali Ahuja MD Technologist: ELIZA LOVE, RT(R),CT Trnscrpt Data: 01/25/2019 (0986) David Orig Print D/T: S: 01/25/2019 (0938) PAGE 1 Signed Report - XR CHEST 1 [id number] 17:54:00 Name: ONEIL ACHARYA [facility] : 1935 Age/S:83 /M [address] [facility] Unit#:[id number] Loc: [place] [address] Phys: Citlali Ahuja MD Dis Date: PHONE #: [phone] Status: DEP ER FAX #: [phone] Exam Date: 01/25/2019 Reason: SHORTNESS OF BREATH COUGH, VOMITING EXAMS: CPT CODE: [id number] XR CHEST 1 V [id number] EXAM: Chest X-ray, 1 view; CLINICAL HISTORY: Shortness of breath, cough; FINDINGS: The lungs are clear, no infiltrates, no edema; no effusions; no pneumothorax; normal cardiomediastinal silhouette. IMPRESSION: Normal chest x-ray. at 1754 Reported and signed by: Hayder Moffett M.D. CC: Citlali Ahuja MD Technologist: ELIZA LOVE, RT(R),CT Trnscrpt Data: 01/25/2019 (1753) tCECILY Orig Print D/T: S: 01/25/2019 (6341) PAGE 1 Signed Report COMPREHENSIVE METABOLIC [id number] 17:51:00* Test Item Value Reference Range Interpretation [...] ALKP) 174 U/L 38-126 H COMPREHENSIVE METABOLIC [id number] 17:45:00* Test Item Value Reference Range Interpretation [...] code = ALKP) IUnit/L 45-117 CBC W/AUTO [id number] 17:37:00* Test Item Value Reference Range Interpretation [...] = MDIFF) NO, ONLY SCAN NEEDED DIFFERENTIAL [id number] 17:37:00* Test Item Value Reference Range Interpretation Comments STAIN ACCEPTABILITY (test code = STN ACCEPTABLE) CABOT RINGS (test code = CAB) MORPHOLOGY COMMENT (test code = MOC) PLATELET ESTIMATE (test code = PLTEST) PLATELET MORPHOLOGY (test code = PLTMORPH) CBC W/AUTO [id number] 17:37:00* Test Item Value Reference Range Interpretation [...] = MDIFF) NO, ONLY SCAN NEEDED DIFFERENTIAL [id number] 17:37:00* Test Item Value Reference Range Interpretation Comments STAIN ACCEPTABILITY (test code = STN ACCEPTABLE) CABOT RINGS (test code = CAB) MORPHOLOGY COMMENT (test code = MOC) PLATELET ESTIMATE (test code = PLTEST) PLATELET MORPHOLOGY (test code = PLTMORPH) CBC W/AUTO [id number] 17:37:00* Test Item Value Reference Range Interpretation [...] = MDIFF) NO, ONLY SCAN NEEDED DIFFERENTIAL [id number] 17:37:00* Test Item Value Reference Range Interpretation Comments STAIN ACCEPTABILITY (test code = STN ACCEPTABLE) MORPHOLOGY COMMENT (test code = MOC) PLATELET ESTIMATE (test code = PLTEST) PLATELET MORPHOLOGY (test code = PLTMORPH) CBC W/AUTO [id number] 17:37:00* Test Item Value Reference Range Interpretation [...] = MDIFF) NO, ONLY SCAN NEEDED DIFFERENTIAL [id number] 17:37:00* Test Item Value Reference Range Interpretation Comments STAIN ACCEPTABILITY (test code = STN ACCEPTABLE) CABOT RINGS (test code = CAB) MORPHOLOGY COMMENT (test code = MOC) PLATELET ESTIMATE (test code = PLTEST) PLATELET MORPHOLOGY (test code = PLTMORPH)
[2020-07-04] VITALS (10 sets, daily range): BP systolic 131–167; BP diastolic 69–97
[2020-07-04] MEDS: SODIUM CHLORIDE 0.9% 1000ML 1,000 ML IV SCH ×3 (00:53→23:19)
--- NOTE | 2020-07-04 01:10 | NUR ---
PT TO ROOM 298 FROM ER VIA STRETCHER. PT ALERT AND AWAKE. VITALS STABLE. DENIES ANY DISCOMFORT. PT STATES HE HAS NOT TAKEN ANY HOME MEDICATIONS IN OVER A MONTH. THIS WILL BE VERIFIED WITH HIS THIS AM. PERALTA AND IV INTACT. NO NEEDS AT THIS TIME. CALL LIGHT WITHIN REACH. WILL CONTINUE TO MONITOR.
[2020-07-04 06:03] LABS: BASOPHILS % 0.1 % (0.0-1.0); EOSINOPHILS # (AUTO) 0.2 (0.0-0.4); EOSINOPHILS % 2.1 % (0.0-6.0); HEMATOCRIT 32.9 % (38.2-49.6); HEMOGLOBIN 11.1 g/dL (14.0-18.0); LYMPHOCYTES # (AUTO) 0.9 (1.0-3.2); LYMPHOCYTES % 12.1 % (18.0-39.1); MEAN CORPUSCULAR HGB CONC 33.7 g/dL (31-35); MEAN CORPUSCULAR VOLUME 100.9 fL (81-99); MONOCYTES # (AUTO) 0.7 (0.2-0.8); MONOCYTES % 9.7 % (4.4-11.3); NEUTROPHILS # (AUTO) 5.3 (2.1-6.9); NEUTROPHILS % 75.6 % (38.7-80.0); PLATELET COUNT 212 x10e3/uL (140-360); RED BLOOD COUNT 3.26 x10e6/uL (4.3-5.7); RED CELL DISTRIBUTION WIDTH 13.8 % (11.7-14.4)
[2020-07-04 06:37] LABS: ALBUMIN 2.7 g/dL (3.5-5.0); ALBUMIN/GLOBULIN RATIO 0.8 (0.8-2.0); ANION GAP 14.2 mmol/L (8-16); CALCIUM 8.8 mg/dL (8.4-10.2); CREATININE, SERUM 5.55 mg/dL (0.72-1.25); POTASSIUM 4.2 mmol/L (3.5-5.1)
[2020-07-04] MEDS ORDERED: ADVIL200 MG PO (06:39)
--- NOTE | 2020-07-04 06:39 | NUR ---
SPOKE TO PT'S DAUGHTER RAKAN GILES, VIA PHONE. DAUGHTER VERIFIES THAT THE PT DOES NOT TAKE MEDICATIONS AT HOME. TISHA STATES HE ONLY TAKES ADVIL PRN FOR PAIN. MEDICATION LIST UPDATED. ADVISED DAUGHTER TO PROVIDE POA DOCUMENTATION.
--- NOTE | 2020-07-04 09:15 | NUR ---
notified Dr Barcenas regarding Bloody urine, He said he will see the patient shortly, Patient up in bed, Not in any distress, call light in reach
--- NOTE | 2020-07-04 09:24 | Diagnostic Imaging Report ---
EXAM: Renal Ultrasound INDICATION: Acute renal failure COMPARISON: CT of the abdomen and pelvis on 06/15/2020. TECHNIQUE: Transverse and longitudinal images of the kidneys and bladder were obtained. FINDINGS: Right Kidney: Size: 11.4 x 4.7 x 5.7 cm Echogenicity: Normal Parenchymal thickness: Normal Collecting system: Mild hydronephrosis. Stones: None Cyst/Mass: 2.4 x 2.2 x 2.2 cm cyst in the upper pole. Left Kidney: Size: 11.4 x 5.8 x 7.1 cm Echogenicity: Normal Parenchymal thickness: Thinned. Collecting system: Severe hydronephrosis. Stones: None Cyst/Mass: None Bladder: Decompressed with a Adrian catheter in place. IMPRESSION: 1. Redemonstration of severe left hydronephrosis with cortical thinning. 2. Mild right hydronephrosis. Signed by: Nemesio Blackwood MD on 07/04/2020 9:21 AM
[2020-07-04] MEDS ORDERED: ACETAMINOPHEN 325 MG TAB PO PRN (11:30)
[2020-07-04] MEDS ORDERED: ALBUTEROL/IPRATROPIUM 3 ML NEB NEB PRN (11:30)
[2020-07-04] MEDS ORDERED: HYDROCODONE/APAP 7.5MG-325MG 1 EA TAB PO PRN (11:30)
[2020-07-04] MEDS: CEFAZOLIN SOD 1 GM/NS 50ML 50 ML IV SCH ×3 (12:17→23:19)
--- NOTE | 2020-07-04 13:26 | NUR ---
Nutrition Screen Note RD Recommendation for Physician: Continue diet as ordered Plan of Care: RD following monitoring for tolerance and adequacy Nutrition reason for involvement: Nutrition Risk Trigger- MST Primary Diagnose(s): Fall with 1st degree burn from coffee PMH: HTN Ht:68 in Wt: 183 lbs BMI: 27.8kg/m2 IBW:[address] Assessment: Initial encounter with patient. Pt has missing teeth, but denies any difficulty chewing or swallowing nor has any nausea, vomiting, or diarrhea. Pt is able to feed himself. No significant wt changes. Pt stated that he does not drink iced tea or jaqueline. Discussed with storage facility rental clerk at time of tray pick up operator. Po intake at lunch was less due to limited food acceptance. 1st degree dunlap are healing on right arm and ribs is healing well. Current Diet: Cardiac Malnutrition Evaluation (07/04/2020) The patient does not meet criteria for a specified degree of malnutrition at this time. Will re-evaluate at follow-up as appropriate. Diet Education Needs Assessment: Diet education not indicated at this time due to his age of [age] years old. Diet tolerance: Diet is well tolerated Nutrition Care Level: sohail Kowalski RD, LD, CNSC
--- NOTE | 2020-07-04 13:44 | History and Physical ---
PRIMARY CARE PHYSICIAN: Dr. Adryan Kendall. CHIEF COMPLAINT: 1. Right upper extremity and right flank area second to third-degree burn from spilling coffee. 2. Acute renal failure, most likely secondary to urinary bladder outlet obstruction uropathy. SUMMARY: The patient is an 85-year-old male, poor historian overall. The patient came to the hospital because he spill hot coffee on his right upper extremity and right flank area associated with 2nd degree burn. The patient also had lab work done showed he had acute renal failure. His BUN and creatinine were significantly elevated and then subsequently in the emergency room, the patient had multiple imaging done including renal ultrasound, chest x-ray, cervical spine CT, brain CT, abdominal pelvic CT. The patient had abdominal pelvic CT showing that he has pelvic masses with resolving obstruction of the distal left ureter resulting in left hydroureteronephrosis appeared to be chronic and there is marked focal atrophy of the kidney. There is also density at the L4 vertebral body through the coccyx and represent osseous metastasis. There are lobulated masses along the external iliac chain measured 4.2 cm and may represent lela metastasis as well. The patient also has a 2.1 cm nodular opacity in the left upper lobe. Additional smaller pulmonary nodule appeared to be stable. There is also distended urinary bladder. The patient had a Adrian catheter in now. The patient's BUN and creatinine on admission were 73 and 9.3 respectively. Other imaging that was also done C-spine showed multilevel cervical spondylosis, but no sign of any lesion in the cervical spine. Renal ultrasound that was done showed redemonstration of severe left hydronephrosis with cortical thinning and mild right hydronephrosis. The patient had Adrian catheter placed and had good urine output. The patient is stable now. He is comfortable awaiting for further workup. PAST MEDICAL HISTORY: Osteoarthritis, complain of generalized pain. Enlarged prostate, history of prostate cancer, history of hypertension, chronic lower back pain with history of low back surgery, appendectomy, history of DVT and pulmonary embolism. SOCIAL HISTORY: The patient does not smoke or use alcohol. No regular drug. ALLERGIES: NO KNOWN ALLERGIES. HOME MEDICATIONS: Not available other than ibuprofen. REVIEW OF SYSTEMS: Generalized pain, urinary retention, right-sided burn, right upper extremity and right flank area. PHYSICAL EXAMINATION: VITAL SIGNS: Temperature is 98, blood pressure 154/80, pulse rate 79, respirations 20. GENERAL: The patient is slightly distressed, awake. HEENT: Normocephalic, atraumatic. Anicteric. NECK: Supple grossly. PULMONARY: Diminished breath sounds. CARDIOVASCULAR: Regular rate and rhythm. ABDOMEN: Right flank area burn, 2nd degree due to coffee spillage. Right upper extremity along the inner humeral and forearm area burn as well. ABDOMEN: Soft, nondistention. Adrian catheter in place. LOWER EXTREMITY: No edema. NEUROLOGIC: Moving all extremities. No focal deficits. LABORATORY DATA: Sodium is 133, potassium 5.9, chloride 105, bicarb 16, BUN 73, creatinine 9.3, glucose is 93. Alkaline phosphatase is 337, total protein is 6.2. WBC 7.1, hemoglobin 11, hematocrit 33, platelets 206. Urinalysis is otherwise unremarkable. Serology, coronavirus 19 PCR is still pending. IMAGING: Renal ultrasound, chest x-ray, cervical spine CT, brain CT, abdominal pelvic CT were done. The CT of abdomen and pelvis showed metastatic disease with obstruction. The patient has the following reading. Pelvic mass is obstructing left ureter and left hydroureteronephrosis with mild right hydronephrosis. There is lesion in L4 vertebral body through the coccyx as well. The lobulated mass, external iliac 4.2 cm. 2.1 cm left upper lobe of lung, multiple smaller pulmonary nodules, distended urinary bladder, Adrian catheter placed. IMPRESSION: 1. Possible metastatic disease from the prostate cancer that the patient previously diagnosed. The patient is a poor historian. We will check for PSA. 2. Acute renal failure secondary to obstruction, most likely from the pelvic mass, prostate. 3. Bones and lung metastasis from the above. 4. Acute renal failure, improving mildly with Adrian catheter in place. PLAN: Renal consult. Urology consult. PSA. Oncologist to see this patient for possible identify the cancer in light of most likely prostate cancer. In the meantime, treat the patient with pain medication and antibiotics for the burn and check the culture if any. MD BHAVYA Keith/DOLORES /[id number]
--- NOTE | 2020-07-04 14:29 | Consultation ---
DATE OF CONSULTATION: Initial Nephrology Consultation Report REASON FOR CONSULTATION: Acute renal failure and hyperkalemia. HISTORY OF PRESENT ILLNESS: Mr. Acharya is an 85-year-old male who presented to hospital after having a fall. However, while he was in the emergency room, labs were drawn, which showed that his creatinine was 9 and his potassium was 5.9, so I was consulted. In the emergency room, a Adrian was placed and it yielded about 1000 to 1300 mL of urine output. He still has a Adrian catheter in place. PAST MEDICAL HISTORY: Really unknown. PAST SURGICAL HISTORY: Unknown. MEDICINES: As per MAR REVIEW OF SYSTEMS: As per HPI. PHYSICAL EXAMINATION: VITAL SIGNS: Blood pressure 154/80, pulse 79, respiration 18. GENERAL: The patient is in no acute distress. HEENT: No increased JVD. CARDIOVASCULAR: Regular rate and rhythm. LUNGS: Clear to auscultation. ABDOMEN: Decreased bowel sounds. The patient has a Adrian. There is hematuria. EXTREMITIES: No edema. LABORATORY RESULTS: Sodium 142, potassium 4.2, chloride 111, bicarbonate 21, BUN and creatinine 55 and 5.5 respectively. Albumin 2.7. The urinalysis shows large blood and many red cells. IMPRESSION: 1. Acute kidney injury. 2. Obstructive nephropathy. 3. Hyperkalemia. 4. Hematuria. 5. Metastatic cancer. PLAN: The patient underwent an ultrasound which showed severe hydronephrosis of the left side and mild hydronephrosis of the right. Also, the CT scan is worrisome for neoplasm involving the prostate. The patient has obstructive nephropathy. However, he is getting IV fluids and with the Adrian he is draining. His creatinine has come down. Hopefully, it will come down some more. His hyperkalemia has been corrected. We will continue the IV fluids with normal saline at 75 mL an hour. Continue to avoid NSAIDs, AVALOS-2 inhibitors and IV contrast. Follow up the patient with you. Thank you, Dr. Barcenas, for this consultation. Ather MD NORMA Jones/DOLORES /[id number]
[2020-07-04] MEDS: SILVER SULFADIAZINE 50GM CREAM TOP SCH (16:05)
[2020-07-04] MEDS: SENNOSIDES 8.6 MG TAB PO SCH (17:00)
--- NOTE | 2020-07-04 17:37 | NUR ---
patient up in bed, not in any distress, on IVF, Dr Real had rounds said keep the same rate with the IV fluids, call light in reach,Bed Alarm ON
--- NOTE | 2020-07-04 19:05 | NUR ---
WALKING ROUNDS PERFORMED, RECEIVED PT LAYING SEMI FOWLERS IN BED, AAOX3, RR EVEN AND NON-LABORED, ON ROOM AIR. NO S/SX OF DISTRESS NOTED. PERALTA TO BEDSIDE BAG DRAINING PINK URINE. LEFT PT LAYING SEMI FOWLERS IN BED, BED IN LOW LOCKED POSITION, SIDE RAILS UPX2, CALL LIGHT AND PHONE WITHIN REACH.
--- NOTE | 2020-07-04 20:38 | NUR ---
IV TO (L) AC LEAKING. IV DISCONTINUED, CATHETER TIP INTACT, PRESSURE AND DRESSING APPLIED. NEW IV STARTED TO (L) FA 20G. FLUSHES WITHOUT DIFFICULTY OR PAIN AND BLOOD RETURN NOTED.
[2020-07-05] VITALS (8 sets, daily range): BP systolic 135–175; BP diastolic 73–94
[2020-07-05 05:26] LABS: BASOPHILS % 0.2 % (0.0-1.0); EOSINOPHILS # (AUTO) 0.4 (0.0-0.4); EOSINOPHILS % 4.1 % (0.0-6.0); HEMATOCRIT 34.8 % (38.2-49.6); LYMPHOCYTES # (AUTO) 1.6 (1.0-3.2); LYMPHOCYTES % 17.3 % (18.0-39.1); MEAN CORPUSCULAR HEMOGLOBIN 34.2 pg (28-32); MEAN CORPUSCULAR HGB CONC 34.5 g/dL (31-35); MEAN CORPUSCULAR VOLUME 99.1 fL (81-99); MONOCYTES # (AUTO) 0.9 (0.2-0.8); MONOCYTES % 9.4 % (4.4-11.3); NEUTROPHILS # (AUTO) 6.2 (2.1-6.9); NEUTROPHILS % 68.7 % (38.7-80.0); PLATELET COUNT 226 x10e3/uL (140-360); RED BLOOD COUNT 3.51 x10e6/uL (4.3-5.7); RED CELL DISTRIBUTION WIDTH 13.4 % (11.7-14.4)
[2020-07-05] MEDS: CEFAZOLIN SOD 1 GM/NS 50ML 50 ML IV SCH ×4 (05:32→23:25)
[2020-07-05 05:54] LABS: ANION GAP 13.4 mmol/L (8-16); CALCIUM 8.9 mg/dL (8.4-10.2); CREATININE, SERUM 1.42 mg/dL (0.72-1.25); POTASSIUM 3.4 mmol/L (3.5-5.1)
[2020-07-05] MEDS: SENNOSIDES 8.6 MG TAB PO SCH ×2 (08:36→17:00)
[2020-07-05] MEDS: SILVER SULFADIAZINE 50GM CREAM TOP SCH ×2 (08:36→17:51)
--- NOTE | 2020-07-05 11:06 | NUR ---
Spoke with granddaughter Ruth Acharya about patents care, and requested she find the name of his cancer drClaudine for prostate cancer and let us know for Dr. Crum who requests it for continuation of care. She said she would find out from the patients daughters and let us know
[2020-07-05] MEDS ORDERED: POTASSIUM CHLORIDE 20 MEQ TAB CR PO ONE (14:30)
--- NOTE | 2020-07-05 16:03 | Progress Note ---
DATE: Renal Progress Note SUBJECTIVE: Events over the past 24 hours have been noted. The patient has no complain. No chest pain. No shortness of breath. There is still some gross hematuria in the Adrian. PHYSICAL EXAMINATION: VITAL SIGNS: Blood pressure 160/91, pulse 93. GENERAL: The patient is in no acute distress. HEENT: No increased JVD. CARDIOVASCULAR: Regular rate and rhythm. LUNGS: Decreased breath sounds at bases bilaterally. ABDOMEN: Positive bowel sounds. EXTREMITIES: No edema. There is no clubbing. LABORATORY RESULTS: Sodium 138, potassium 3.4, chloride 105, bicarbonate 23, BUN and creatinine 19 and 1.42 respectively. IMPRESSION/PLAN: 1. Acute kidney injury secondary to obstructive nephropathy. 2. Neoplasm. 3. Hyperkalemia. 4. Gross hematuria. PLAN: The patient has seen an oncologist in the past. The patient's renal function is improving significantly. He is probably almost at his baseline. We will replace the potassium. I will stop the IV fluids once this bag finishes. Ather MD NORMA Jones/DOLORES /[id number]
--- NOTE | 2020-07-05 19:06 | NUR ---
WALKING ROUNDS PERFORMED, RECEIVED PT SITTING ON SIDE OF BED, AAOX3, RR EVEN AND NON-LABORED, ON ROOM AIR. MD CAMPBELL AT BEDSIDE DISCUSSING POC WITH PATIENT. LEFT PT SITTING ON SIDE OF BED, BED IN LOW LOCKED POSITION, SIDE RAILS UPX2, CALL LIGHT AND PHONE WITHIN REACH.
[2020-07-06] VITALS: BP 155/75
--- NOTE | 2020-07-06 02:56 | NUR ---
ALERTED TO PATIENT ROOM BY PATIENT MOANING IN PAIN. UPON ENTERING ROOM PT REPORTS CRAMPS TO LEGS. OFFERED PAIN MEDICATION FOR CRAMPS. PT REPORTS THAT HE DOES NOT WANT IT. HE IS GOING TO SLEEP. LEFT PT LAYING SEMI FOWLERS IN BED, BED IN LOW LOCKED POSITION, SIDE RAILS UPX2, CALL LIGHT AND PHONE WITHIN REACH.
[2020-07-06 04:00] VITALS: BP 159/79
[2020-07-06] MEDS: CEFAZOLIN SOD 1 GM/NS 50ML 50 ML IV SCH ×3 (05:27→17:21)
--- NOTE | 2020-07-06 07:00 | NUR ---
SBAR BEDSIDE REPORT RECEIVED FROM JUDY URIAS, PM SHIFT. PT RECEIVED LYING IN BED HOB ELEVATED 30 DEGREES IN NO ACUTE DISTRESS. PT IS ABLE TO MAKE NEEDS KNOWN AND DENIES ANY NEEDS AT THIS TIME. PT EDUCATED ON FALL RISK PRECAUTIONS AND VERBALIZED UNDERSTANDING. CALL LIGHT AND BELONGINGS PLACED NEARBY. WILL CONTINUE TO MONITOR.
[2020-07-06 07:55] VITALS: BP 142/64
[2020-07-06] MEDS: SENNOSIDES 8.6 MG TAB PO SCH ×2 (08:55→17:21)
[2020-07-06 09:00] VITALS: BP 142/64
[2020-07-06] MEDS: SILVER SULFADIAZINE 50GM CREAM TOP SCH ×2 (09:23→17:21)
--- NOTE | 2020-07-06 10:00 | NUR ---
SPOKE WITH DAUGHTER JAIME WHOM GAVE CHOICE FOR [facility]. EDUCATED ABOUT IMM, FILED IN CHART. FAXED CLINICALS TO [facility]OSP[facility]
--- NOTE | 2020-07-06 10:36 | Consultation ---
DATE OF CONSULTATION: 07/05/2020 Urologic Consultation Consultation was called by Dr. Barcenas. CHIEF COMPLAINT/REASON FOR CONSULTATION: Prostate cancer, hematuria retention. HISTORY OF PRESENT ILLNESS: Mr. Acharya is an 85-year-old male, poor historian, admitted to the hospital per Dr. Barcenas's report. The patient has a history of prostate cancer. The patient denied gross hematuria prior to admission. However, upon Adrian catheter insertion had gross hematuria. PAST MEDICAL HISTORY: As above, BPH, hypertension, DVT, chronic low back pain, pulmonary embolus. MEDICATIONS: Please see MAR. ALLERGIES: NKDA. SOCIAL HISTORY: Denied smoking or drinking. FAMILY HISTORY: Denied urologic stones or malignancies. REVIEW OF SYSTEMS: Noncontributory, other than problems mentioned above for 12-organ systems. PHYSICAL EXAMINATION: GENERAL: Elderly male, in no acute distress. VITAL SIGNS: Temperature 98, pulse 89, respirations 20, blood pressure 175/90. HEENT: Sclerae anicteric. NECK: Supple. BACK: Without costovertebral angle tenderness bilaterally. ABDOMEN: Soft. It is nontender. It is nondistended. No palpable mass. No palpable hernias. No palpable adenopathy. : Normal male external genitalia. EXTREMITIES: No edema. NEURO: Moves all 4 extremities. PSYCH: Mood appropriate. SKIN: Intact. Normal color. PERTINENT LABORATORY DATA: CT scan revealing a 2.1 cm left upper lobe lung mass. Multiple bony metastases in the lumbar sacral spine. Mass at the bladder base encroaching on the left ureter chronic left hydronephrosis with severe renal atrophy and thinning of the parenchyma. Hemoglobin 12, hematocrit 34, platelet count 226,000, and white blood cell count 9000. Sodium 138, potassium 3.4, chloride 105, bicarb 23, BUN 19, creatinine 1.42, glucose 104. PSA pending. Urinalysis, 21 to 50 reds . IMPRESSION: 1. Gross hematuria. 2. Urinary retention. 3. Benign prostatic hyperplasia. 4. Hypertension. 5. Tkcmc-pc-xpmpjdb renal failure. 6. Lung mass. 7. Question/bladder cyst prostate cancer invasion metastasis. 8. Hypokalemia. 9. Anemia, question prostate cancer. PLAN: Attempt to obtain history from the patient's family about the patient's prior urologist if he had a diagnosis of prostate cancer . The patient has a Adrian catheter in adequate position. Irrigate p.r.n. With recent history of pulmonary embolus, consider IVC filter. Consider biopsy of lesions. Thank you for allowing me to participate in the care of your patient. We will be happy to follow along with you. MD BETO Jo/MODL /[id number] cc: Jose Barcenas MD
[2020-07-06 12:01] VITALS: BP_SYST 169; BP_SYST 94; BP_DIAS 50; BP_DIAS 97
--- NOTE | 2020-07-06 15:40 | NUR ---
SPOKE WITH [facility] REP MALINA [phone] SHE STATES ALL CONSENTS SIGNED, WILL FAX OOH DNR TO NURSE AT [facility]. EQUIPMENT SHOULD BE DELIVERED BETWEEN 6 AND 8 PM, THEN WILL SET UP TRANSPORT TO TAKE HOME AFTER EQUIPMENT IS DELIVERED.
--- NOTE | 2020-07-06 15:49 | NUR ---
MALINA CALLED BACK FAMILY CHOSE NOT TO SIGN A OOH DNR, LET NURSE KNOW PT IS TO REMAIN FULL CODE STATUS.
[2020-07-06 16:01] VITALS: BP 163/87
--- NOTE | 2020-07-06 19:00 | NUR ---
PT DISCHARGED HOME WITH [facility]. TELEPHONE REPORT GIVEN TO ESHA RN, HOSPICE. PERALTA CATHETER PATENT AND DRAINING LEFT IN PLACE. PATIENT RECEIVED DISCHARGE SUMMARY AND EDUCATION LEAFLETS.
== END 2020-07-06 19:00 | disposition hospice, home (50) | DRG 723 ==
LOC: ER 20:02 → ERHOLD 23:48 → MED/SURG3 23:50
PROVIDERS: ADMIT Internal Medicine; ATTEND Internal Medicine
DX: C61 Malignant neoplasm of prostate (principal); N17.9 Acute kidney failure, unspecified; C78.02 Secondary malignant neoplasm of left lung; C79.51 Secondary malignant neoplasm of bone; N13.8 Other obstructive and reflux uropathy; N32.0 Bladder-neck obstruction; T22.211A Burn of second degree of right forearm, initial encounter; E87.5 Hyperkalemia; T21.12XA Burn of first degree of abdominal wall, initial encounter; R53.1 Weakness; W18.30XA Fall on same level, unspecified, initial encounter; Z91.81 History of falling; Y93.89 Activity, other specified; Y92.012 Bathroom of single-family (private) house as the place of occurrence of the external cause; X10.0XXA Contact with hot drinks, initial encounter; I10 Essential (primary) hypertension; Z82.49 Family history of ischemic heart disease and other diseases of the circulatory system; D64.9 Anemia, unspecified; Z11.59 Encounter for screening for other viral diseases
CPT/HCPCS: 36415; 51700; 70450; 71045; 72125; 74176; 76770; 80048; 80053; 81001; 82948; 84152; 85025; 93005; 96374; 96375; 99284; J0610; J0690; J1817; J7030; J7799; U0002